=== PATIENT | male | born 1975 | race African-American/Black ===

== ENCOUNTER 2017-03-07 06:46 | Emergency (ER) | payer BC, OTHER ==
[2017-03-07] MEDS ORDERED: DIPHENOX-ATROP 2.5-0.025 MG 1 EACH TAB PO STA (07:22)
[2017-03-07] MEDS ORDERED: SODIUM CHLORIDE 0.9% 500 ML IV STA (07:22)
[2017-03-07] MEDS ORDERED: ONDANSETRON 4 MG/2 ML VIAL IVP STA (07:22)
--- NOTE | 2017-03-07 07:27 | ED ---
General Adult HPI - General Chief complaint: Nausea/Vomiting/Diarrhea Stated complaint: NVD Time Seen by Provider: 03/07/17 07:00 Source: patient, RN notes reviewed Mode of arrival: ambulatory Limitations: no limitations - History of Present Illness Initial comments: This is a 41-year-old male who presents to the emergency department complaining of vomiting diarrhea. Patient states started last night about 8:00 and he has vomited a couple times. Patient states he had loose stool since that times well. Patient denies any significant abdominal pain. Patient denies any chest pain difficulty breathing or shortness of breath. Patient denies any recent fever chills or cough per patient states one of his grandchildren was ill with similar symptoms. Patient denies any lesions or rashes. Patient denies any lightheadedness or dizziness. - Related Data Previous Rx's Medication Instructions Recorded Diazepam [Valium] 5 mg PO QID PRN #5 tab 05/23/14 Acetaminophen with Codeine 1 each PO Q4H #20 tab 05/28/14 [Tylenol w/codeine #3] Cyclobenzaprine [Flexeril] 10 mg PO TID #20 tab 05/28/14 Ibuprofen [Motrin] 800 mg PO Q6HR PRN #20 tab 05/28/14 Allergies Allergy/AdvReac Type Severity Reaction Status Date / Time lactose Allergy Diarrhea Verified 03/07/17 06:54 Review of Systems ROS Statement: Those systems with pertinent positive or pertinent negative responses have been documented in the HPI. ROS Other: All systems not noted in ROS Statement are negative. Past Medical History Past Medical History: No Reported History History of Any Multi-Drug Resistant Organisms: None Reported Past Surgical History: No Surgical Hx Reported Past Psychological History: No Psychological Hx Reported Smoking Status: Current every day smoker Past Alcohol Use History: Occasional Past Drug Use History: None Reported General Exam - General Exam Comments Initial Comments: GENERAL: Patient is well-developed and well-nourished. Patient is nontoxic and well- hydrated and is in mild distress. ENT: Neck is soft and supple. No significant lymphadenopathy is noted. Oropharynx is clear. Moist mucous membranes. Neck has full range of motion without eliciting any pain. 6640 EYES: The sclera were anicteric and conjunctiva were pink and moist. Extraocular movements were intact and pupils were equal round and reactive to light. Eyelids were unremarkable. PULMONARY: Unlabored respirations. Good breath sounds bilaterally. No audible rales rhonchi or wheezing was noted. CARDIOVASCULAR: There is a regular rate and rhythm without any murmurs gallops or rubs. ABDOMEN: Soft and nontender with normal bowel sounds. No palpable organomegaly was noted. There is no palpable pulsatile mass. SKIN: Skin is clear with no lesions or rashes and otherwise unremarkable. NEUROLOGIC: Patient is alert and oriented x3. Cranial nerves II through XII are grossly intact. Motor and sensory are also intact. Normal speech, volume and content. Symmetrical smile. MUSCULOSKELETAL: Normal extremities with adequate strength and full range of motion. No lower extremity swelling or edema. No calf tenderness. LYMPHATICS: No significant lymphadenopathy is noted PSYCHIATRIC: Normal psychiatric evaluation. 6640 Limitations: no limitations Course Vital Signs 03/07/17 03/07/17 06:50 07:35 Temperature 98.9 F Pulse Rate 116 H 97 Respiratory 16 16 Rate Blood Pressure 151/106 138/80 O2 Sat by Pulse 96 99 Oximetry Medical Decision Making - Lab Data Result diagrams: 03/07/17 06:55 03/07/17 06:55 Lab Results 03/07/17 03/07/17 Range/Units 06:55 06:55 WBC 7.6 (3.8-10.6) k/uL RBC 5.34 (4.30-5.90) m/uL Hgb 16.1 (13.0-17.5) gm/dL Hct 46.7 (39.0-53.0) % MCV 87.4 (80.0-100.0) fL MCH 30.2 (25.0-35.0) pg MCHC 34.6 (31.0-37.0) g/dL RDW 12.8 (11.5-15.5) % Plt Count 296 (150-450) k/uL Neutrophils % 55 % Lymphocytes % 29 % Monocytes % 11 % Eosinophils % 2 % Basophils % 1 % Neutrophils # 4.2 (1.3-7.7) k/uL Lymphocytes # 2.2 (1.0-4.8) k/uL Monocytes # 0.8 (0-1.0) k/uL Eosinophils # 0.2 (0-0.7) k/uL Basophils # 0.1 (0-0.2) k/uL Sodium 138 (137-145) mmol/L Potassium 4.4 (3.5-5.1) mmol/L Chloride 103 (98-107) mmol/L Carbon Dioxide 19 L (22-30) mmol/L Anion Gap 16 mmol/L BUN 13 (9-20) mg/dL Creatinine 1.02 (0.66-1.25) mg/dL Est GFR (MDRD) Af Amer >60 (>60 ml/min/1.73 sqM) Est GFR (MDRD) Non-Af >60 (>60 ml/min/1.73 sqM) Glucose 112 H (74-99) mg/dL Calcium 10.0 (8.4-10.2) mg/dL Total Bilirubin 1.0 (0.2-1.3) mg/dL AST 34 (17-59) U/L ALT 43 (21-72) U/L Alkaline Phosphatase 85 (38-126) U/L Total Protein 8.4 H (6.3-8.2) g/dL Albumin 5.0 (3.5-5.0) g/dL Amylase 40 (30-110) U/L Lipase 162 (23-300) U/L Disposition Clinical Impression: Gastroenteritis Disposition: HOME SELF-CARE Condition: Good Instructions: Gastroenteritis (ED) Referrals: None,Stated [Primary Care Provider] - 1-2 days Time of Disposition: 08:12
[2017-03-07 07:40] LABS: Basophils # (A) 0.1 k/uL (0-0.2); Basophils % (A) 1 %; CH 30.5; Eosinophils # (A) 0.2 k/uL (0-0.7); Eosinophils % (A) 2 %; HCT 46.7 % (39.0-53.0); HDW 2.37; HGB 16.1 gm/dL (13.0-17.5); Luc # (Auto) 0.15; Luc % (Auto) 2; Lymphocytes # (A) 2.2 k/uL (1.0-4.8); Lymphocytes % (A) 29 %; MCH 30.2 pg (25.0-35.0); MCHC 34.6 g/dL (31.0-37.0); MCV 87.4 fL (80.0-100.0); Mean Platelet Volume 6.7; Monocytes # (A) 0.8 k/uL (0-1.0); Monocytes % (A) 11 %; Neutrophils # (A) 4.2 k/uL (1.3-7.7); Neutrophils % (A) 55 %; RBC 5.34 m/uL (4.30-5.90); RDW 12.8 % (11.5-15.5); WBC 7.6 k/uL (3.8-10.6); WBC (Perox) 7.08
[2017-03-07 08:05] LABS: ALT 43 U/L (21-72); AST 34 U/L (17-59); Alkaline Phosphatase 85 U/L (38-126); Amylase 40 U/L (30-110); Anion Gap 16 mmol/L; Blood Urea Nitrogen 13 mg/dL (9-20); Carbon Dioxide 19 mmol/L (22-30); Chloride 103 mmol/L (98-107); Glucose 112 mg/dL (74-99); Non-African American GFR(MDRD) >60 (>60 ml/min/1.73 sqM); Potassium 4.4 mmol/L (3.5-5.1); Sodium 138 mmol/L (137-145); Total Protein 8.4 g/dL (6.3-8.2)
[2017-03-07] MEDS ORDERED: ONDANSETRON 4 MG ODT STARTER PACK 2 TAB BTL PO STA (08:12)
[2017-03-07 08:42] VITALS: BP 148/82; PULSE 95; RESP 18; TEMP 97.9
== END 2017-03-07 08:20 | disposition home or self-care (01) ==
LOC: EC 06:46
DX: K52.9 Noninfective gastroenteritis and colitis, unspecified (principal); F17.200 Nicotine dependence, unspecified, uncomplicated; Z91.011 Allergy to milk products
CPT/HCPCS: 99284 ×2; 96374 ×2; 96361 ×2; 36415; 80053; 82150; 83690; 85025; J2405; S0119

== ENCOUNTER 2017-09-10 06:21 | Emergency (ER) | payer BC ==
[2017-09-10] MEDS ORDERED: ONDANSETRON 4 MG/2 ML VIAL IVP STA ×2 (06:42→08:31)
[2017-09-10] MEDS ORDERED: SODIUM CHLORIDE 0.9% 1,000 ML IV STA (06:42)
[2017-09-10] MEDS ORDERED: ACETAMINOPHEN TAB 500 MG TAB PO STA (06:43)
[2017-09-10] MEDS ORDERED: KETOROLAC 30 MG/ML 1 ML VIAL IVP STA (06:43)
--- NOTE | 2017-09-10 06:47 | ED ---
General Adult HPI - General Source: patient, RN notes reviewed Mode of arrival: ambulatory Limitations: no limitations <Lei Baires - Last Filed: 09/10/17 06:58> <Lei Patel - Last Filed: 09/10/17 08:33> - General Chief complaint: Nausea/Vomiting/Diarrhea Stated complaint: NVD Time Seen by Provider: 09/10/17 06:42 - History of Present Illness Initial comments: 41-year-old presents for evaluation of nausea vomiting and diarrhea. Patient's symptoms began approximately 8-10 hours ago. He states he ate some eggs and chorizo prior to development of this symptoms. He has had some mild generalized abdominal pain. 2 episodes of vomiting most recently was 3 hours ago. No blood in his vomit. He is also had several episodes of diarrhea. He reports subjective fever and chills. Denies URI symptoms, no cough, no sore throat or rhinorrhea. (Lei Baires) - Related Data Previous Rx's Medication Instructions Recorded Ondansetron Odt [Zofran Odt] 4 mg PO Q8HR PRN #10 tab 09/10/17 Allergies Allergy/AdvReac Type Severity Reaction Status Date / Time lactose Allergy Diarrhea Verified 09/10/17 07:17 Review of Systems ROS Other: All systems not noted in ROS Statement are negative. <Lei Baires - Last Filed: 09/10/17 06:58> ROS Other: All systems not noted in ROS Statement are negative. <Lei Patel - Last Filed: 09/10/17 08:33> ROS Statement: Those systems with pertinent positive or pertinent negative responses have been documented in the HPI. Past Medical History Past Medical History: No Reported History History of Any Multi-Drug Resistant Organisms: None Reported Past Surgical History: No Surgical Hx Reported Past Psychological History: No Psychological Hx Reported Smoking Status: Current every day smoker Past Alcohol Use History: Occasional Past Drug Use History: None Reported <Lei Baires - Last Filed: 09/10/17 06:58> General Exam Limitations: no limitations General appearance: alert, in no apparent distress Head exam: Present: atraumatic, normocephalic Eye exam: Present: normal appearance, PERRL ENT exam: Present: mucous membranes dry Neck exam: Present: normal inspection. Absent: tenderness, meningismus Respiratory exam: Present: normal lung sounds bilaterally. Absent: respiratory distress, wheezes Cardiovascular Exam: Present: normal rhythm, tachycardia GI/Abdominal exam: Present: soft, distended, tenderness (Mild left lower quadrant tenderness). Absent: guarding, rebound Extremities exam: Present: normal inspection, normal capillary refill. Absent: pedal edema Neurological exam: Present: alert, oriented X3, CN II-XII intact. Absent: motor sensory deficit Psychiatric exam: Present: normal affect, normal mood Skin exam: Present: warm, intact, diaphoretic (Clammy) <Lei Baires - Last Filed: 09/10/17 06:58> Course <Lei Baires - Last Filed: 09/10/17 06:58> <Lei Patel - Last Filed: 09/10/17 08:33> Vital Signs 09/10/17 09/10/17 06:25 06:45 Temperature 100.3 F H 97.7 F Pulse Rate 117 H 106 H Respiratory 20 14 Rate Blood Pressure 155/92 146/88 O2 Sat by Pulse 96 95 Oximetry - Reevaluation(s) Reevaluation #1: 09/10/17 06:47 Patient's care signed out at shift change to Dr. Patel awaiting laboratory studies and reevaluation. 09/10/17 06:58 (Lei Baires) Reevaluation #2: 09/10/17 08:31 The patient showing much improved he still has some nausea he will be given another dose of antinausea medication be discharged he will be able to return to work tomorrow. (Lei Patel) Medical Decision Making - Lab Data Result diagrams: 09/10/17 06:55 09/10/17 06:55 <Lei Patel - Last Filed: 09/10/17 08:33> - Lab Data Lab Results 09/10/17 09/10/17 Range/Units 06:55 06:55 WBC 5.2 (3.8-10.6) k/uL RBC 4.64 (4.30-5.90) m/uL Hgb 14.1 (13.0-17.5) gm/dL Hct 39.2 (39.0-53.0) % MCV 84.6 (80.0-100.0) fL MCH 30.4 (25.0-35.0) pg MCHC 35.9 (31.0-37.0) g/dL RDW 13.2 (11.5-15.5) % Plt Count 274 (150-450) k/uL Neutrophils % 53 % Lymphocytes % 34 % Monocytes % 8 % Eosinophils % 2 % Basophils % 1 % Neutrophils # 2.7 (1.3-7.7) k/uL Lymphocytes # 1.8 (1.0-4.8) k/uL Monocytes # 0.4 (0-1.0) k/uL Eosinophils # 0.1 (0-0.7) k/uL Basophils # 0.0 (0-0.2) k/uL Sodium 143 (137-145) mmol/L Potassium 4.1 (3.5-5.1) mmol/L Chloride 104 (98-107) mmol/L Carbon Dioxide 22 (22-30) mmol/L Anion Gap 17 mmol/L BUN 13 (9-20) mg/dL Creatinine 0.92 (0.66-1.25) mg/dL Est GFR (CKD-EPI)AfAm >90 (>60 ml/min/1.73 sqM) Est GFR (CKD-EPI)NonAf >90 (>60 ml/min/1.73 sqM) Glucose 127 H (74-99) mg/dL Calcium 9.0 (8.4-10.2) mg/dL Total Bilirubin 0.7 (0.2-1.3) mg/dL AST 44 (17-59) U/L ALT 49 (21-72) U/L Alkaline Phosphatase 72 (38-126) U/L Total Protein 7.3 (6.3-8.2) g/dL Albumin 4.6 (3.5-5.0) g/dL Lipase 123 (23-300) U/L Disposition <Lei Baires - Last Filed: 09/10/17 06:58> Is patient prescribed a controlled substance at d/c from ED?: No <Lei Patel - Last Filed: 09/10/17 08:33> Clinical Impression: Gastroenteritis Disposition: HOME SELF-CARE Condition: Good Instructions: Acute Nausea and Vomiting (ED), Acute Diarrhea (ED) Prescriptions: Ondansetron Odt [Zofran Odt] 4 mg PO Q8HR PRN #10 tab PRN Reason: Nausea Referrals: Robert Nuñez MD [Primary Care Provider] - 1-2 days
[2017-09-10 07:08] LABS: Basophils % (A) 1 %; Eosinophils # (A) 0.1 k/uL (0-0.7); Eosinophils % (A) 2 %; HCT 39.2 % (39.0-53.0); HGB 14.1 gm/dL (13.0-17.5); Lymphocytes # (A) 1.8 k/uL (1.0-4.8); Lymphocytes % (A) 34 %; MCH 30.4 pg (25.0-35.0); MCHC 35.9 g/dL (31.0-37.0); MCV 84.6 fL (80.0-100.0); Mean Platelet Volume 6.4; Monocytes # (A) 0.4 k/uL (0-1.0); Monocytes % (A) 8 %; Neutrophils # (A) 2.7 k/uL (1.3-7.7); Neutrophils % (A) 53 %; Platelet Count 274 k/uL (150-450); RBC 4.64 m/uL (4.30-5.90); RDW 13.2 % (11.5-15.5); WBC 5.2 k/uL (3.8-10.6)
[2017-09-10 07:21] LABS: ALT 49 U/L (21-72); AST 44 U/L (17-59); Albumin 4.6 g/dL (3.5-5.0); Alkaline Phosphatase 72 U/L (38-126); Anion Gap 17 mmol/L; Blood Urea Nitrogen 13 mg/dL (9-20); Carbon Dioxide 22 mmol/L (22-30); Chloride 104 mmol/L (98-107); Glucose 127 mg/dL (74-99); Lipase 123 U/L (23-300); Potassium 4.1 mmol/L (3.5-5.1); Sodium 143 mmol/L (137-145); Total Bilirubin 0.7 mg/dL (0.2-1.3); Total Protein 7.3 g/dL (6.3-8.2)
[2017-09-10 08:52] VITALS: BP 149/88; PULSE 101; RESP 20; TEMP 98.1
== END 2017-09-10 08:51 | disposition home or self-care (01) ==
LOC: EC 06:21
DX: K52.9 Noninfective gastroenteritis and colitis, unspecified (principal); F17.200 Nicotine dependence, unspecified, uncomplicated; Z91.011 Allergy to milk products
CPT/HCPCS: 36415; 80053; 83690; 85025; 99284; 96374; 96376; 96361 ×2; J2405

== ENCOUNTER 2017-11-14 17:14 | Emergency (ER) | payer BC, OTHER ==
[2017-11-14 17:30] VITALS: BP 144/93; PULSE 108; RESP 18
[2017-11-14 17:46] VITALS: TEMP 96.9
== END 2017-11-14 17:45 | disposition home or self-care (01) ==
LOC: EC 17:14
DX: Z02.9 Encounter for administrative examinations, unspecified (principal)

== ENCOUNTER 2018-01-26 21:23 | Observation (INO) | payer BC ==
[2018-01-26] MEDS ORDERED: SODIUM CHLORIDE 0.9% 500 ML IV STA (22:33)
--- NOTE | 2018-01-26 22:38 | ED ---
General Adult HPI - General Source: patient, family, RN notes reviewed, old records reviewed Mode of arrival: ambulatory Limitations: no limitations <Jorge Craft - Last Filed: 01/27/18 01:10> <Arnold Campbell - Last Filed: 01/27/18 06:27> - General Chief complaint: Abdominal Pain Stated complaint: abdominal pain - History of Present Illness Initial comments: Chief complaint and history of present illness this is a 42-year-old male with complaint of left lower quadrant abdominal pain. He reports it started around 3 :30 this afternoon. Patient denies any change in appetite. Denies any difficulty having bowel movements denies any trouble urinating. Acute injury ( Jorge Craft) - Related Data Home Medications Medication Instructions Recorded Confirmed No Known Home Medications 01/26/18 01/26/18 Allergies Allergy/AdvReac Type Severity Reaction Status Date / Time lactose Allergy Diarrhea Verified 01/26/18 22:10 Review of Systems ROS Other: All systems not noted in ROS Statement are negative. <Jorge Craft - Last Filed: 01/27/18 01:10> ROS Other: All systems not noted in ROS Statement are negative. <Arnold Campbell - Last Filed: 01/27/18 06:27> ROS Statement: Those systems with pertinent positive or pertinent negative responses have been documented in the HPI. Review of systems no headache visual acuity changes no chest pain no shortness of breath he has discomfort to the left lower quadrant. No difficulty urinating or bowel movements. All systems are reviewed. No significant past medical problems. Denies any surgeries. Family history diabetes and cancer. ALLERGIES to lactose. Denies eating anything that may have caused Dali cramping because of lactose. Patient's heavy smoker and heavy drinker. Advised to stop both. (Jorge Craft) Past Medical History Past Medical History: No Reported History History of Any Multi-Drug Resistant Organisms: None Reported Past Surgical History: No Surgical Hx Reported Past Psychological History: No Psychological Hx Reported Smoking Status: Current every day smoker Past Alcohol Use History: Occasional Past Drug Use History: None Reported <Jorge Craft - Last Filed: 01/27/18 01:10> General Exam Limitations: no limitations <Jorge Craft - Last Filed: 01/27/18 01:10> <Arnold Campbell - Last Filed: 01/27/18 06:27> - General Exam Comments Initial Comments: General: The patient is awake and alert, P with a complaint of left lower quadrant pain. Started at 3:30 this afternoon. Vital signs temperature 97.7 pulse 104 respiratory rate 20 pulse ox 99% room air blood pressure 149/89 Eye: Pupils are equal, round and reactive to light, extra-ocular movements are intact ; there is normal conjunctiva bilaterally. No signs of icterus. Ears, nose, mouth and throat: There are moist mucous membranes and no oral lesions. Neck: The neck is supple, there is no tenderness. Cardiovascular: There is a regular rate and rhythm. No murmur, rub or gallop is appreciated. Respiratory: Lungs are clear to auscultation, respirations are non-labored, breath sounds are equal. No wheezes, stridor, rales, or rhonchi. Gastrointestinal: Patient has discomfort with palpation and mild voluntary guarding to the left lower quadrant. No rebound no referred pain. Normal bowel sounds. Urinating without difficulties bowel movements today without difficulty. Back: No flank pain. Musculoskeletal: Upper lower extremities normal. Psychologically the patient has a past history of bipolar disorder. No complaints of being depressed. Normal judgment. (Jorge Craft) Vital Signs 01/26/18 01/26/18 01/27/18 21:53 23:34 00:43 Temperature 97.7 F Pulse Rate 104 H 101 H 77 Respiratory 20 17 18 Rate Blood Pressure 149/89 134/58 137/88 O2 Sat by Pulse 99 95 95 Oximetry 01/27/18 02:55 Temperature 97.4 F L Pulse Rate 71 Respiratory 19 Rate Blood Pressure 145/86 O2 Sat by Pulse 94 L Oximetry Medical Decision Making - Lab Data Result diagrams: 01/26/18 22:45 01/26/18 22:45 <Jorge Craft - Last Filed: 01/27/18 01:10> - Lab Data Result diagrams: 01/26/18 22:45 01/26/18 22:45 <Arnold Campbell - Last Filed: 01/27/18 06:27> - Medical Decision Making Medical decision making; this is a 42-year-old male with left lower quadrant pain since 3:30 this afternoon. Labs show white count of 5 hemoglobin 14 hematocrit of 42. Potassium 4.3 with a BUN 19 creatinine 1.26 and GFR 70. Glucose 1:15. Amylase lipase within normal limits. Lactic acid 3.2. X-ray of the abdomen was done and reviewed by radiologist his findings include an there is no sign of intestinal obstruction or pneumoperitoneum. Fecal pattern is normal. There are phleboliths in the pelvis. There are no pathologic calcifications over the kidneys. Lung bases are clear. There is linear density at the right lung base consistent with scarring or subsegmental atelectasis. Impression; nonacute abdomen. As read by Dr. Jackson Final disposition by Dr. Campbell (Jorge Craft) I received this patient as sign out, pending the computed tomography scan of the abdomen. The CAT scan does appear within normal limits. The patient is given additional hydration, and the lactic acid is rechecked which does show some improvement though not at the normal range yet. Patient reevaluated and no findings on abdominal exam. Patient be admitted further hydration and to ensure that the lactic acid normalizes. (Arnold Campbell) - Lab Data Lab Results 01/26/18 01/26/18 01/26/18 Range/Units 22:45 22:45 22:45 WBC 5.1 (3.8-10.6) k/uL RBC 4.89 (4.30-5.90) m/uL Hgb 14.4 (13.0-17.5) gm/dL Hct 42.8 (39.0-53.0) % MCV 87.6 (80.0-100.0) fL MCH 29.4 (25.0-35.0) pg MCHC 33.5 (31.0-37.0) g/dL RDW 13.6 (11.5-15.5) % Plt Count 278 (150-450) k/uL Neutrophils % 60 % Lymphocytes % 26 % Monocytes % 9 % Eosinophils % 2 % Basophils % 1 % Neutrophils # 3.1 (1.3-7.7) k/uL Lymphocytes # 1.3 (1.0-4.8) k/uL Monocytes # 0.4 (0-1.0) k/uL Eosinophils # 0.1 (0-0.7) k/uL Basophils # 0.1 (0-0.2) k/uL Sodium 140 (137-145) mmol/L Potassium 4.3 (3.5-5.1) mmol/L Chloride 107 (98-107) mmol/L Carbon Dioxide 19 L (22-30) mmol/L Anion Gap 14 mmol/L BUN 19 (9-20) mg/dL Creatinine 1.26 H (0.66-1.25) mg/dL Est GFR (CKD-EPI)AfAm 81 (>60 ml/min/1.73 sqM) Est GFR (CKD-EPI)NonAf 70 (>60 ml/min/1.73 sqM) Glucose 115 H (74-99) mg/dL Lactic Ac Sepsis Rflx Plasma Lactic Acid Alex 3.2 H* (0.7-2.0) mmol/L Calcium 8.9 (8.4-10.2) mg/dL Total Bilirubin 0.5 (0.2-1.3) mg/dL AST 33 (17-59) U/L ALT 46 (21-72) U/L Alkaline Phosphatase 63 (38-126) U/L Total Protein 7.2 (6.3-8.2) g/dL Albumin 4.4 (3.5-5.0) g/dL Amylase 42 (30-110) U/L Lipase 129 (23-300) U/L Urine Color Urine Appearance (Clear) Urine pH (5.0-8.0) Ur Specific [place] (1.001-1.035) Urine Protein (Negative) Urine Glucose (UA) (Negative) Urine Ketones (Negative) Urine Blood (Negative) Urine Nitrite (Negative) Urine Bilirubin (Negative) Urine Urobilinogen (<2.0) mg/dL Ur Leukocyte Esterase (Negative) 01/26/18 01/26/18 01/27/18 Range/Units 23:25 23:38 05:47 WBC (3.8-10.6) k/uL RBC (4.30-5.90) m/uL Hgb (13.0-17.5) gm/dL Hct (39.0-53.0) % MCV (80.0-100.0) fL MCH (25.0-35.0) pg MCHC (31.0-37.0) g/dL RDW (11.5-15.5) % Plt Count (150-450) k/uL Neutrophils % % Lymphocytes % % Monocytes % % Eosinophils % % Basophils % % Neutrophils # (1.3-7.7) k/uL Lymphocytes # (1.0-4.8) k/uL Monocytes # (0-1.0) k/uL Eosinophils # (0-0.7) k/uL Basophils # (0-0.2) k/uL Sodium (137-145) mmol/L Potassium (3.5-5.1) mmol/L Chloride (98-107) mmol/L Carbon Dioxide (22-30) mmol/L Anion Gap mmol/L BUN (9-20) mg/dL Creatinine (0.66-1.25) mg/dL Est GFR (CKD-EPI)AfAm (>60 ml/min/1.73 sqM) Est GFR (CKD-EPI)NonAf (>60 ml/min/1.73 sqM) Glucose (74-99) mg/dL Lactic Ac Sepsis Rflx Y Plasma Lactic Acid Alex 2.5 H* (0.7-2.0) mmol/L Calcium (8.4-10.2) mg/dL Total Bilirubin (0.2-1.3) mg/dL AST (17-59) U/L ALT (21-72) U/L Alkaline Phosphatase (38-126) U/L Total Protein (6.3-8.2) g/dL Albumin (3.5-5.0) g/dL Amylase (30-110) U/L Lipase (23-300) U/L Urine Color Yellow Urine Appearance Clear (Clear) Urine pH 5.0 (5.0-8.0) Ur Specific [place] 1.012 (1.001-1.035) Urine Protein Negative (Negative) Urine Glucose (UA) Negative (Negative) Urine Ketones Negative (Negative) Urine Blood Negative (Negative) Urine Nitrite Negative (Negative) Urine Bilirubin Negative (Negative) Urine Urobilinogen <2.0 (<2.0) mg/dL Ur Leukocyte Esterase Negative (Negative) Disposition <Jorge Craft - Last Filed: 01/27/18 01:10> Is patient prescribed a controlled substance at d/c from ED?: No <Arnold Campbell - Last Filed: 01/27/18 06:27> Clinical Impression: Abdominal pain, Lactic acidosis Disposition: ADMITTED IP TO THIS HOSP Condition: Fair Instructions: Abdominal Pain (ED) Referrals: None,Stated [Primary Care Provider] - 1-2 days
[2018-01-26 23:11] LABS: Basophils # (A) 0.1 k/uL (0-0.2); Basophils % (A) 1 %; Eosinophils # (A) 0.1 k/uL (0-0.7); Eosinophils % (A) 2 %; HCT 42.8 % (39.0-53.0); HGB 14.4 gm/dL (13.0-17.5); Lymphocytes # (A) 1.3 k/uL (1.0-4.8); Lymphocytes % (A) 26 %; MCH 29.4 pg (25.0-35.0); MCHC 33.5 g/dL (31.0-37.0); MCV 87.6 fL (80.0-100.0); Mean Platelet Volume 6.4; Monocytes # (A) 0.4 k/uL (0-1.0); Monocytes % (A) 9 %; Neutrophils # (A) 3.1 k/uL (1.3-7.7); Neutrophils % (A) 60 %; Platelet Count 278 k/uL (150-450); RBC 4.89 m/uL (4.30-5.90); RDW 13.6 % (11.5-15.5); WBC 5.1 k/uL (3.8-10.6)
--- NOTE | 2018-01-26 23:17 | XR ---
EXAMINATION TYPE: XR abdomen 2V DATE OF EXAM: 01/26/2018 COMPARISON: NONE HISTORY: Abdominal pain TECHNIQUE: 3 views FINDINGS: There is no sign of intestinal obstruction or pneumoperitoneum. Fecal pattern is normal. Th ere are fleet Santillan in the pelvis. There are no pathologic calcifications over the kidneys. Lung bas es are clear. There is linear density at the right lung base consistent with scarring or subsegmental atelectasis. IMPRESSION: Nonacute abdomen.
[2018-01-26 23:21] LABS: Albumin 4.4 g/dL (3.5-5.0); Calcium 8.9 mg/dL (8.4-10.2); Potassium 4.3 mmol/L (3.5-5.1); Total Bilirubin 0.5 mg/dL (0.2-1.3); Total Protein 7.2 g/dL (6.3-8.2)
[2018-01-26 23:55] LABS: Appearance,Urine Clear (Clear); Bilirubin,Urine Negative (Negative); Blood,Urine Negative (Negative); Color,Urine Yellow; Glucose,Urine (UA) Negative (Negative); Ketones,Urine Negative (Negative); Leukocyte Esterase,Urine Negative (Negative); Nitrite,Urine Negative (Negative); Protein,Urine Negative (Negative); Specific Gravity,Urine 1.012 (1.001-1.035); Urobilinogen,Urine <2.0 mg/dL (<2.0)
[2018-01-27] MEDS ORDERED: IOPAMIDOL-300 CONTRAST 30 ML VIAL (ORAL USE) PO PRN (00:23)
--- NOTE | 2018-01-27 02:25 | CT ---
EXAMINATION TYPE: CT abdomen pelvis w con DATE OF EXAM: 01/27/2018 COMPARISON: None HISTORY: no prior middle low abdominal pain x1day CT DLP: 1572.00 mGycm Automated exposure control for dose reduction was used. TECHNIQUE: Helical acquisition of images was performed from the lung bases through the pelvis. CONTRAST: Performed with Oral Contrast and with IV Contrast, patient injected with 100 mL of Isovue 300. FINDINGS: There is minimal linear density at the posterior lung bases consistent with scarring and subsegmental atelectasis. Heart size is normal. Liver shows some fatty infiltration. Bile ducts are not dilated. Gallbladder appears normal. Spleen and pancreas appear normal. There is no adrenal mass. Kidneys show satisfactory contrast opacification. There is no hydronephrosi s. There is no retroperitoneal adenopathy. Bladder distends smoothly. There is no free fluid in the p shelbi. There is no intestinal wall thickening. There are no dilated loops. Appendix appears normal. A ppendix is filled with contrast. There is no evidence of a pelvic mass. Lumbar spine appears intact. Urinary bladder is large and measures 15 cm in height. IMPRESSION: MILD FATTY INFILTRATION OF THE LIVER. MINIMAL SUBSEGMENTAL ATELECTASIS AT THE LUNG BASES. NORMAL APPE NDIX. I DO NOT SEE A CAUSE FOR LEFT LOWER QUADRANT PAIN.
[2018-01-27] MEDS ORDERED: SODIUM CHLORIDE 0.9% 3,000 ML IV ONE (02:50)
[2018-01-27] MEDS ORDERED: NALOXONE 0.4 MG/ML 1 ML VIAL IV PRN (06:19)
[2018-01-27] MEDS ORDERED: ACETAMINOPHEN TAB 325 MG TAB PO PRN (06:19)
[2018-01-27] MEDS ORDERED: ONDANSETRON 4 MG/2 ML VIAL IVP PRN (06:19)
[2018-01-27] MEDS: FAMOTIDINE 20 MG TAB PO SCH ×2 (09:54→20:19)
[2018-01-27] MEDS ORDERED: LORazepam 0.5 MG TAB PO PRN (12:04)
[2018-01-27] MEDS: LEVOFLOXACIN 500MG-D5W PMX 500 MG in DEXTROSE/WATER 1 100ML.BAG IVPB SCH (12:06)
[2018-01-27] MEDS: SODIUM CHLORIDE 0.9% 1,000 ML IV SCH ×2 (12:09→20:18)
[2018-01-27] MEDS: NICOTINE 14MG/24HR PATCH TRANSDERM SCH (14:28)
--- NOTE | 2018-01-27 16:43 | HP ---
HISTORY AND PHYSICAL DATE OF SERVICE: 01/27/2018 CHIEF COMPLAINTS: Abdominal pain. HISTORY OF PRESENT ILLNESS: This 42-year-old gentleman with a past medical history of multiple medical issues including GERD being followed by no primary physician in the outpatient setting was complaining of left-sided abdominal pain which is in the lower quadrant yesterday which was not radiating. There was no associated bowel symptoms. Patient came to [facility] and admitted for evaluation and treatment. The patient had creatinine 1.26 indicating mild acute renal failure and lactic acid also elevated 3.2 and 3.5. There is no history of fever, rigors. No headache, loss of consciousness, seizures. PAST MEDICAL HISTORY: GERD. MEDICATIONS: None. ALLERGIES: LACTOSE. FAMILY HISTORY: History of diabetes in the family. SOCIAL HISTORY: History of smoking on a daily basis. History of alcohol. REVIEW OF SYSTEMS: ENT: No diminished hearing or vision. CARDIOVASCULAR: No angina. RESPIRATORY: As mentioned earlier. GI: No nausea. : No dysuria. NERVOUS SYSTEM: No numbness or weakness. ALLERGY/IMMUNOLOGY: No hay fever. MUSCULOSKELETAL: As mentioned. HEMATOLOGY: No history anemia. ENDOCRINE: No history of diabetes or hypothyroidism. CONSTITUTIONAL: As mentioned earlier. DERMATOLOGY: Negative. RHEUMATOLOGY: Negative. PSYCHIATRY: As mentioned earlier. PHYSICAL EXAMINATION: Alert and oriented x3. Pulse 82, blood pressure 130/88, respiration 16, temperature 96.7, pulse ox 97% on room air. HEENT: Conjunctivae normal. Oral mucosa moist. NECK: No jugular venous distention. No carotid bruit. No lymph node enlargement. CARDIOVASCULAR: S1, S2 RESPIRATORY: Breath sounds diminished in the bases. No rhonchi, no crackles. ABDOMEN: Soft. Mild diffuse tenderness in the left lower quadrant. No guarding. No rigidity. No mass palpable. LEGS: No edema, no swelling. NERVOUS SYSTEM: Higher functions as mentioned. Moves all four limbs. No focal motor sensory deficit. LYMPHATICS: No lymphadenopathy in the neck, axillae, groin. SKIN: No ulcer, rashes or bleeding. LABS: CBC within normal limits. Creatinine is 1.26 and lactic acid 3.2. ASSESSMENT: 1. Left lower quadrant abdominal pain with possible acute diverticulitis. 2. Increased lactic acid. 3. Increased creatinine with mild acute renal failure, possibly secondary to dehydration. 4. Gastroesophageal reflux disease. RECOMMENDATIONS AND DISCUSSION: This 42-year-old gentleman who presented with multiple complex medical issues, we will monitor the patient closely. Continue the current medications. I would recommend continue the hydration, empiric antibiotics. Cultures. Symptomatic treatment will be provided. Prognosis guarded because of multiple complex medical issues. Discussed with the patient and recommend close follow up in the outpatient setting also. MMABEL / IJN: [id number] /
[2018-01-27] MEDS: HEPARIN SODIUM,PORCINE 5,000 UNIT/ML 1 ML VIAL SQ SCH (20:19)
[2018-01-28] MEDS: SODIUM CHLORIDE 0.9% 1,000 ML IV SCH ×3 (01:14→10:58)
[2018-01-28 05:06] VITALS: BP 141/87; PULSE 73; RESP 16; TEMP 96.2
[2018-01-28] MEDS ORDERED: PANTOPRAZOLE 40 MG TABLET PO SCH (07:30)
[2018-01-28 08:56] LABS: Basophils % (A) 1 %; Eosinophils # (A) 0.1 k/uL (0-0.7); Eosinophils % (A) 2 %; HCT 45.8 % (39.0-53.0); HGB 14.9 gm/dL (13.0-17.5); Lymphocytes # (A) 1.5 k/uL (1.0-4.8); Lymphocytes % (A) 30 %; MCH 28.9 pg (25.0-35.0); MCHC 32.5 g/dL (31.0-37.0); MCV 88.9 fL (80.0-100.0); Mean Platelet Volume 6.4; Monocytes # (A) 0.5 k/uL (0-1.0); Monocytes % (A) 11 %; Neutrophils # (A) 2.7 k/uL (1.3-7.7); Neutrophils % (A) 54 %; Platelet Count 304 k/uL (150-450); RBC 5.15 m/uL (4.30-5.90); RDW 13.5 % (11.5-15.5); WBC 4.9 k/uL (3.8-10.6)
[2018-01-28 09:08] LABS: Anion Gap 10 mmol/L; Blood Urea Nitrogen 9 mg/dL (9-20); Calcium 9.2 mg/dL (8.4-10.2); Carbon Dioxide 23 mmol/L (22-30); Chloride 107 mmol/L (98-107); Glucose 153 mg/dL (74-99); Potassium 4.7 mmol/L (3.5-5.1); Sodium 140 mmol/L (137-145)
[2018-01-28] MEDS: NICOTINE 14MG/24HR PATCH TRANSDERM SCH (11:13)
[2018-01-28] MEDS: HEPARIN SODIUM,PORCINE 5,000 UNIT/ML 1 ML VIAL SQ SCH (11:13)
[2018-01-28] MEDS: FAMOTIDINE 20 MG TAB PO SCH (11:13)
[2018-01-28] MEDS: LEVOFLOXACIN 500MG-D5W PMX 500 MG in DEXTROSE/WATER 1 100ML.BAG IVPB SCH (11:18)
--- NOTE | 2018-01-28 21:08 | DS ---
DISCHARGE SUMMARY DATE OF SERVICE: 01/28/2018. FINAL DIAGNOSES: 1. Left lower quadrant abdominal pain with possible acute diverticulitis. 2. Increased lactic acid, improved. 3. Increased creatinine with mild acute renal failure possible secondary to dehydration, improved. 4. History EtOH. 5. History of gastroesophageal reflux disease. DISCHARGE DISPOSITION: The patient is being discharged in stable condition with guarded prognosis. HISTORY OF PRESENT ILLNESS: This 42-year-old gentleman with a past medical history of multiple medical problems admitted with abdominal pain as well as elevated lactic acid, treated empirically for diverticulitis, improved significantly. CT scan did not show any acute abnormality. On exam, vital signs stable. Cardiovascular: S1, S2. Abdomen soft. Nervous system: No focal deficits. DISCHARGE ADVICE AND MEDICATIONS: 1. Diet is cardiac diet. 2. Activity limited until followup. 3. Follow up with Dr. Zurita in 2-3 days. MEDICATIONS ARE: 1. Levaquin 500 mg p.o. daily for 5 days. 2. Habitrol 14 daily. 3. Protonix 40 mg daily. 4. No alcohol. Once again, the patient is being discharged in stable condition with guarded prognosis. MMODL / IJN: [id number] /
== END 2018-01-28 14:20 | disposition home or self-care (01) ==
LOC: EC 21:23 → 5MS5E 01-27 06:23
PROVIDERS: ADMIT Internal Medicine; ATTEND Internal Medicine
DX: R10.32 Left lower quadrant pain (principal); N17.9 Acute kidney failure, unspecified; K21.9 Gastro-esophageal reflux disease without esophagitis; R74.0 Nonspecific elevation of levels of transaminase and lactic acid dehydrogenase [LDH]; R79.89 Other specified abnormal findings of blood chemistry; Z72.89 Other problems related to lifestyle; F17.200 Nicotine dependence, unspecified, uncomplicated; Z80.9 Family history of malignant neoplasm, unspecified; Z83.3 Family history of diabetes mellitus
CPT/HCPCS: 99285 ×2; 96361 ×9; 96365; 96366 ×2; 96372 ×2; 36415 ×2; 80053; 80048; 82150; 83605 ×2; 83690; 85025 ×2; 81003; 87040; 87086; 74019; 74177; G0378 ×2; S4990 ×2; J1644 ×2; J1956 ×2; Q9967

== ENCOUNTER 2018-06-12 08:59 | Emergency (ER) | payer BC ==
[2018-06-12 09:09] VITALS: BP 153/95; PULSE 105; RESP 18
[2018-06-12] MEDS ORDERED: ONDANSETRON 4 MG/2 ML VIAL IVP STA (09:46)
[2018-06-12] MEDS ORDERED: SODIUM CHLORIDE 0.9% 1,000 ML IV STA ×2 (09:46)
[2018-06-12] MEDS ORDERED: SODIUM CHLORIDE 0.9% 500 ML 500 ML IV STA (09:46)
[2018-06-12] MEDS ORDERED: PANTOPRAZOLE 40 MG/10 ML VIAL IVP STA (09:47)
[2018-06-12 10:28] VITALS: TEMP 99.5
[2018-06-12] MEDS ORDERED: SODIUM CHLORIDE 0.9% 1,000 ML BAG ONE (11:00)
[2018-06-12] MEDS ORDERED: ONDANSETRON 4 MG/2 ML VIAL ONE (11:00)
[2018-06-12] MEDS ORDERED: PANTOPRAZOLE 40 MG/10 ML VIAL ONE (11:00)
--- NOTE | 2018-06-12 11:53 | ED ---
Nausea/Vomiting/Diarrhea HPI - General Chief complaint: Nausea/Vomiting/Diarrhea Stated complaint: abd pain Time Seen by Provider: 06/12/18 09:17 Source: patient, RN notes reviewed, old records reviewed Mode of arrival: ambulatory Limitations: no limitations - History of Present Illness Initial comments: This is a 42-year-old male to the ER for evaluation. Today's presenting for evaluation regards to nausea vomiting and diarrhea. Weakness fever. Abdominal cramping but no pain. No recent travel history, patient states his is also been sick. Patient has no significant injury medical history. Not taking any medication currently. MD complaint: nausea, vomiting, diarrhea -: days(s) Description of Vomiting: food contents, watery Associated Abdominal Pain: No Radiation: none Severity: mild Severity scale (1-10): 2 Consistency: intermittent Improves with: none Worsens with: eating, vomiting Context: sick contacts Associated Symptoms: myalgias, nausea/vomiting, weakness - Related Data Home Medications Medication Instructions Recorded Confirmed Ibuprofen [Motrin Ib] 400 mg PO Q6H PRN 06/12/18 06/12/18 Allergies Allergy/AdvReac Type Severity Reaction Status Date / Time lactose Allergy Diarrhea Verified 06/12/18 09:35 Review of Systems ROS Statement: Those systems with pertinent positive or pertinent negative responses have been documented in the HPI. ROS Other: All systems not noted in ROS Statement are negative. Past Medical History Past Medical History: GERD/Reflux History of Any Multi-Drug Resistant Organisms: None Reported Past Surgical History: No Surgical Hx Reported Past Psychological History: No Psychological Hx Reported Smoking Status: Current every day smoker Past Alcohol Use History: None Reported Past Drug Use History: None Reported - Past Family History Father Family Medical History: Diabetes Mellitus Additional Family Medical History / Comment(s): Father had diabetes and it runs strongley in his family. Mother Additional Family Medical History / Comment(s): Mother has had bronchitis. General Exam Limitations: no limitations General appearance: alert, in no apparent distress Head exam: Present: atraumatic, normocephalic, normal inspection Eye exam: Present: normal appearance, PERRL, EOMI. Absent: scleral icterus, conjunctival injection, periorbital swelling ENT exam: Present: normal exam, mucous membranes moist Neck exam: Present: normal inspection. Absent: tenderness, meningismus, lymphadenopathy Respiratory exam: Present: normal lung sounds bilaterally. Absent: respiratory distress, wheezes, rales, rhonchi, stridor Cardiovascular Exam: Present: normal rhythm, tachycardia, normal heart sounds. Absent: systolic murmur, diastolic murmur, rubs, gallop, clicks GI/Abdominal exam: Present: soft, normal bowel sounds. Absent: distended, tenderness, guarding, rebound, rigid Extremities exam: Present: normal inspection, full ROM, normal capillary refill. Absent: tenderness, pedal edema, joint swelling, calf tenderness Back exam: Present: normal inspection Neurological exam: Present: alert, oriented X3, CN II-XII intact Psychiatric exam: Present: normal affect, normal mood Skin exam: Present: warm, dry, intact, normal color. Absent: rash Course Vital Signs 06/12/18 06/12/18 09:07 10:26 Temperature 99.0 F 99.5 F Pulse Rate 105 H Respiratory 18 Rate Blood Pressure 153/95 O2 Sat by Pulse 98 Oximetry - Reevaluation(s) Reevaluation #1: 06/12/18 10:38 Medical records reviewed noncontributory Reevaluation #2: 06/12/18 10:38 Patient has symptoms of nausea vomiting and Medical Decision Making - Medical Decision Making 42 male, patient's nausea and vomiting are resolved. Patient states he feels better, patient's okay for discharge home - Lab Data Result diagrams: 06/12/18 10:20 06/12/18 10:20 Lab Results 06/12/18 06/12/18 06/12/18 Range/Units 10:20 10:20 10:20 WBC 4.9 (3.8-10.6) k/uL RBC 4.84 (4.30-5.90) m/uL Hgb 14.5 (13.0-17.5) gm/dL Hct 42.8 (39.0-53.0) % MCV 88.6 (80.0-100.0) fL MCH 30.0 (25.0-35.0) pg MCHC 33.9 (31.0-37.0) g/dL RDW 13.4 (11.5-15.5) % Plt Count 274 (150-450) k/uL Neutrophils % 65 % Lymphocytes % 20 % Monocytes % 10 % Eosinophils % 2 % Basophils % 1 % Neutrophils # 3.2 (1.3-7.7) k/uL Lymphocytes # 1.0 (1.0-4.8) k/uL Monocytes # 0.5 (0-1.0) k/uL Eosinophils # 0.1 (0-0.7) k/uL Basophils # 0.0 (0-0.2) k/uL Sodium 139 (137-145) mmol/L Potassium 4.4 (3.5-5.1) mmol/L Chloride 104 (98-107) mmol/L Carbon Dioxide 24 (22-30) mmol/L Anion Gap 11 mmol/L BUN 14 (9-20) mg/dL Creatinine 0.94 (0.66-1.25) mg/dL Est GFR (CKD-EPI)AfAm >90 (>60 ml/min/1.73 sqM) Est GFR (CKD-EPI)NonAf >90 (>60 ml/min/1.73 sqM) Glucose 101 H (74-99) mg/dL Calcium 9.1 (8.4-10.2) mg/dL Phosphorus 4.6 H (2.5-4.5) mg/dL Magnesium 2.0 (1.6-2.3) mg/dL Total Bilirubin 1.1 (0.2-1.3) mg/dL AST 67 H (17-59) U/L ALT 75 H (21-72) U/L Alkaline Phosphatase 76 (38-126) U/L Total Creatine Kinase 556 H (55-170) U/L CK-MB (CK-2) 3.6 H (0.0-2.4) ng/mL CK-MB (CK-2) Rel Index 0.6 Troponin I <0.012 (0.000-0.034) ng/mL Total Protein 7.6 (6.3-8.2) g/dL Albumin 4.5 (3.5-5.0) g/dL Lipase 79 (23-300) U/L Disposition Clinical Impression: Dehydration, Gastroenteritis Disposition: HOME SELF-CARE Condition: Good Instructions (If sedation given, give patient instructions): Acute Nausea and Vomiting (ED) Is patient prescribed a controlled substance at d/c from ED?: No Referrals: Robert Nuñez MD [Primary Care Provider] - 1-2 days
[2018-06-12 23:35] LABS: ALT 75 U/L (21-72); AST 67 U/L (17-59); Albumin 4.5 g/dL (3.5-5.0); Alkaline Phosphatase 76 U/L (38-126); Anion Gap 11 mmol/L; Blood Urea Nitrogen 14 mg/dL (9-20); Calcium 9.1 mg/dL (8.4-10.2); Carbon Dioxide 24 mmol/L (22-30); Chloride 104 mmol/L (98-107); Glucose 101 mg/dL (74-99); Lipase 79 U/L (23-300); Phosphorus 4.6 mg/dL (2.5-4.5); Potassium 4.4 mmol/L (3.5-5.1); Sodium 139 mmol/L (137-145); Total Bilirubin 1.1 mg/dL (0.2-1.3); Total Protein 7.6 g/dL (6.3-8.2)
[2018-06-12 23:41] LABS: Creatine Kinase 556 U/L (55-170); Creatine Kinase MB 3.6 ng/mL (0.0-2.4); Troponin I <0.012 ng/mL (0.000-0.034)
[2018-06-13 05:32] LABS: Basophils % (A) 1 %; Eosinophils # (A) 0.1 k/uL (0-0.7); Eosinophils % (A) 2 %; HCT 42.8 % (39.0-53.0); HGB 14.5 gm/dL (13.0-17.5); Lymphocytes % (A) 20 %; MCHC 33.9 g/dL (31.0-37.0); MCV 88.6 fL (80.0-100.0); Mean Platelet Volume 6.6; Monocytes # (A) 0.5 k/uL (0-1.0); Monocytes % (A) 10 %; Neutrophils # (A) 3.2 k/uL (1.3-7.7); Neutrophils % (A) 65 %; Platelet Count 274 k/uL (150-450); RBC 4.84 m/uL (4.30-5.90); RDW 13.4 % (11.5-15.5); WBC 4.9 k/uL (3.8-10.6)
== END 2018-06-12 14:15 | disposition home or self-care (01) ==
LOC: EC 08:59
DX: K52.9 Noninfective gastroenteritis and colitis, unspecified (principal); E86.0 Dehydration; F17.200 Nicotine dependence, unspecified, uncomplicated; Z88.8 Allergy status to other drugs, medicaments and biological substances
CPT/HCPCS: 36415; 80053; 82550; 82553; 83690; 83735; 84100; 84484; 85025; 99284

== ENCOUNTER 2019-03-16 11:20 | Emergency (ER) | payer BC ==
[2019-03-16 11:31] VITALS: BP 110/73; PULSE 89; RESP 16; TEMP 97.8
--- NOTE | 2019-03-16 12:14 | ED ---
Alcohol HPI - General Chief Complaint: Alcohol Stated Complaint: alcohol rehab Source: patient Mode of arrival: ambulatory Limitations: no limitations - History of Present Illness Initial Comments: 43yo male presenting for alcohol abuse redilatation. Patient states that he has been abusing alcohol since age 17. Patient states it is affecting his entire life including his family and was seeking help. He thought he was able to come to emergency department for alcohol rehab. Patient denies any shakiness denies any seizure activity nausea vomiting abdominal pain chest pain shortest of breath or any other symptoms. Patient states he feels fine he states he had 2 large beers this morning. Patient states he is not sure where to go for resources. Remaining review of systems negative upon arrival patient appears well no signs of acute distress. Patient denies any suicidal or homicidal ideation patient denies any hallucinations auditory or visual. - Related Data Home Medications Medication Instructions Recorded Confirmed No Known Home Medications 03/16/19 03/16/19 Allergies Allergy/AdvReac Type Severity Reaction Status Date / Time lactose AdvReac Diarrhea Verified 03/16/19 11:48 Review of Systems ROS Statement: Those systems with pertinent positive or pertinent negative responses have been documented in the HPI. ROS Other: All systems not noted in ROS Statement are negative. Past Medical History Past Medical History: GERD/Reflux History of Any Multi-Drug Resistant Organisms: None Reported Past Surgical History: No Surgical Hx Reported Past Psychological History: No Psychological Hx Reported Smoking Status: Current every day smoker Past Alcohol Use History: Abuse, Daily, Heavy Past Drug Use History: None Reported - Past Family History Father Family Medical History: Diabetes Mellitus Additional Family Medical History / Comment(s): Father had diabetes and it runs strongley in his family. Mother Additional Family Medical History / Comment(s): Mother has had bronchitis. General Exam - General Exam Comments Initial Comments: General: The patient is awake and alert, in no distress, and does not appear acutely ill. Eye: +3 mm pupils are equal, round and reactive to light, extra-ocular movements are intact. No nystagmus. There is normal conjunctiva bilaterally. No signs of icterus. Ears, nose, mouth and throat: There are moist mucous membranes and no oral lesions. Neck: The neck is supple, there is no tenderness or JVD. Cardiovascular: There is a regular rate and rhythm. No murmur, rub or gallop is appreciated. Respiratory: Lungs are clear to auscultation, respirations are non-labored, breath sounds are equal. No wheezes, stridor, rales, or rhonchi. Musculoskeletal: Normal ROM, no tenderness. Strength 5/5. Sensation intact. Radial pulses equal bilaterally 2+. Neurological: A&O x 3. CN II-XII intact grossly, There are no obvious motor or sensory deficits. Coordination appears grossly intact. Speech is normal. No tremors Skin: Skin is warm and dry and no rashes or lesions are noted. Psychiatric: Cooperative, appropriate mood & affect, normal judgment. Does not appear acutely psychotic Limitations: no limitations Course Vital Signs 03/16/19 11:27 Temperature 97.8 F Pulse Rate 89 Respiratory 16 Rate Blood Pressure 110/73 O2 Sat by Pulse 96 Oximetry Medical Decision Making - Medical Decision Making 43-year-old male presenting for alcohol rehabilitation. Patient intoxicated. No other complaints. Denies any injury. Patient thought we had rehabilitation this LAD in the hospital. Patient denies any suicide homicidal ideation does not appear acutely psychotic. Patient provided resources for rehabilitation centers. Patient had a sober ride home and was discharged from emergency department. no acute examination abnormalities. Discussed case wiht Dr. Garcia and patient was discharged appearing well. Disposition Clinical Impression: Alcohol intoxication, History of alcohol abuse Disposition: HOME SELF-CARE Condition: Good Instructions (If sedation given, give patient instructions): Alcohol Intoxication (ED), Abuse of Alcohol (ED) Additional Instructions: Please use medication as discussed. Please use rehab sources as discussed. Please refrain from driving today as you're intoxicated. Please return to emergency room if the symptoms increase or worsen or for any other concerns. Is patient prescribed a controlled substance at d/c from ED?: No Referrals: Robert Nuñez MD [Primary Care Provider] - 1-2 days Time of Disposition: 12:14
== END 2019-03-16 12:34 | disposition home or self-care (01) ==
LOC: EC 11:20
DX: F10.129 Alcohol abuse with intoxication, unspecified (principal); F17.200 Nicotine dependence, unspecified, uncomplicated; Z91.011 Allergy to milk products
CPT/HCPCS: 99283

== ENCOUNTER 2019-03-24 16:50 | Emergency (ER) | payer BC ==
[2019-03-24 17:31] LABS: Glucose,Whole Blood 93 mg/dL (75-99)
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
[2019-03-24 17:34] LABS: Amphetamine Screen,Urine Not Detected (NotDetected); Barbiturate Screen,Urine Not Detected (NotDetected); Benzodiazepines Screen,Urine Not Detected (NotDetected); Cocaine Screen,Urine Not Detected (NotDetected); Methadone Screen, Urine Not Detected (NotDetected); Opiate Screen,Urine Not Detected (NotDetected); Oxycodone Screen, Urine Not Detected (NotDetected); Phencyclidine Screen,Urine Not Detected (NotDetected); Tricyclic Antidepressant,Urine Not Detected (NotDetected); Urn Cannabinoid Scrn Not Detected (NotDetected)
[2019-03-24 18:24] LABS: ALT 43 U/L (21-72); AST 37 U/L (17-59); African American GFR (CKD) >90 (>60 ml/min/1.73 sqM); Albumin 4.9 g/dL (3.5-5.0); Alkaline Phosphatase 75 U/L (38-126); Anion Gap 14 mmol/L; Blood Urea Nitrogen 10 mg/dL (9-20); Calcium 9.7 mg/dL (8.4-10.2); Carbon Dioxide 22 mmol/L (22-30); Chloride 106 mmol/L (98-107); Glucose 96 mg/dL (74-99); Potassium 4.3 mmol/L (3.5-5.1); Sodium 142 mmol/L (137-145); Total Bilirubin 0.6 mg/dL (0.2-1.3); Total Protein 8.2 g/dL (6.3-8.2)
[2019-03-24 18:26] LABS: Alcohol 218 mg/dL
[2019-03-24 18:33] LABS: Basophils # (A) 0.1 k/uL (0-0.2); Basophils % (A) 1 %; Eosinophils # (A) 0.1 k/uL (0-0.7); Eosinophils % (A) 2 %; HCT 43.9 % (39.0-53.0); HGB 14.9 gm/dL (13.0-17.5); Lymphocytes # (A) 1.7 k/uL (1.0-4.8); Lymphocytes % (A) 31 %; MCHC 33.9 g/dL (31.0-37.0); MCV 88.5 fL (80.0-100.0); Mean Platelet Volume 6.6; Monocytes # (A) 0.4 k/uL (0-1.0); Monocytes % (A) 7 %; Neutrophils # (A) 3.1 k/uL (1.3-7.7); Neutrophils % (A) 56 %; Platelet Count 165 k/uL (150-450); RBC 4.96 m/uL (4.30-5.90); WBC 5.4 k/uL (3.8-10.6)
[2019-03-25 02:07] VITALS: BP 120/67; PULSE 105; RESP 18; TEMP 98.6
== END 2019-03-25 02:00 | disposition home or self-care (01) ==
LOC: EC 16:50
DX: F10.129 Alcohol abuse with intoxication, unspecified (principal); F17.200 Nicotine dependence, unspecified, uncomplicated; Z91.011 Allergy to milk products
CPT/HCPCS: 36415; 80053; 80306; 80320; 82075; 85025; 99285

== ENCOUNTER 2019-06-02 12:42 | Emergency (ER) | payer BC ==
[2019-06-02 12:48] VITALS: RESP 20
--- NOTE | 2019-06-02 13:50 | XR ---
EXAMINATION TYPE: XR Hip Complete LT DATE OF EXAM: 06/02/2019 COMPARISON: NONE HISTORY: Pain TECHNIQUE: 2 views submitted FINDINGS: There is no evidence of erosive change or acute fracture. There is hypertrophic change of the acetabu lum and moderate to severe arthropathy of the hip. There is a lucency within the acetabulum. Calcific ation the pelvis likely vascular. IMPRESSION: 1. 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 There is a lucency within the ac etabulum which could be on the basis of an age indeterminate fracture and correlation with CT scan is recommended
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
[2019-06-02 15:26] VITALS: BP 116/78; PULSE 82; TEMP 98.7
== END 2019-06-02 15:25 | disposition home or self-care (01) ==
LOC: EC 12:42
DX: M25.852 Other specified joint disorders, left hip (principal); M79.605 Pain in left leg; M12.852 Other specific arthropathies, not elsewhere classified, left hip; M25.752 Osteophyte, left hip; F17.200 Nicotine dependence, unspecified, uncomplicated; Z91.018 Allergy to other foods; Z79.1 Long term (current) use of non-steroidal anti-inflammatories (NSAID); Z87.81 Personal history of (healed) traumatic fracture
CPT/HCPCS: 73502; 99284

== ENCOUNTER 2020-05-29 15:26 | Emergency (ER) | payer BC, OTHER ==
[2020-05-29 15:36] VITALS: TEMP 97.4
--- NOTE | 2020-05-29 16:26 | ED ---
Skin/Abscess/FB HPI - General Chief complaint: Skin/Abscess/Foreign Body Stated complaint: arm pain Time Seen by Provider: 05/29/20 15:28 Source: patient, EMS Mode of arrival: EMS Limitations: no limitations - History of Present Illness Initial comments: 44-year-old male presenting to the emergency department with chief complaint of a mass on the shoulder. Patient reports this has been present there for the past 12 years. States he has had no issues with it but over the last year has gradually increased in size. Patient reports the last few days it is discomforting and painful. Patient states he went to his primary care physician who advised him to come to the emergency department for further evaluation. Patient denies any erythema or discharge from the region. Denies any injuries at the site of the mass. - Related Data Home Medications Medication Instructions Recorded Confirmed Ibuprofen [Motrin Ib] 600 mg PO DAILY 03/24/19 06/02/19 Allergies Allergy/AdvReac Type Severity Reaction Status Date / Time lactose AdvReac Diarrhea Verified 05/29/20 15:36 Review of Systems ROS Statement: Those systems with pertinent positive or pertinent negative responses have been documented in the HPI. ROS Other: All systems not noted in ROS Statement are negative. Past Medical History Past Medical History: GERD/Reflux History of Any Multi-Drug Resistant Organisms: None Reported Past Surgical History: No Surgical Hx Reported Past Psychological History: No Psychological Hx Reported Smoking Status: Current every day smoker Past Alcohol Use History: Abuse, Daily, Heavy Past Drug Use History: None Reported - Past Family History Father Family Medical History: Diabetes Mellitus Additional Family Medical History / Comment(s): Father had diabetes and it runs strongley in his family. Mother Additional Family Medical History / Comment(s): Mother has had bronchitis. General Exam Limitations: no limitations General appearance: alert, in no apparent distress, obese Head exam: Present: atraumatic, normocephalic, normal inspection Eye exam: Present: normal appearance, PERRL, EOMI Pupils: Present: normal accommodation ENT exam: Present: normal exam, normal oropharynx, mucous membranes moist Neck exam: Present: normal inspection, full ROM. Absent: tenderness Respiratory exam: Present: normal lung sounds bilaterally. Absent: respiratory distress, wheezes, rales Cardiovascular Exam: Present: regular rate, normal rhythm, normal heart sounds Extremities exam: Present: full ROM, tenderness (Mild tenderness to palpation of the mass), normal capillary refill. Absent: normal inspection (Cutaneous mass on the left shoulder region measuring approximately 10 cm in diameter. No signs of infection. No overlying cellulitic skin changes. No discharge noted. The mass is movable.), pedal edema, joint swelling, calf tenderness Back exam: Present: normal inspection, full ROM. Absent: tenderness, CVA tenderness (R), CVA tenderness (L) Neurological exam: Present: alert, oriented X3 Psychiatric exam: Present: normal affect, normal mood Skin exam: Present: warm, dry, intact, normal color Course Vital Signs 05/29/20 15:33 Temperature 97.4 F L Pulse Rate 85 Respiratory 20 Rate Blood Pressure 111/77 O2 Sat by Pulse 99 Oximetry Medical Decision Making - Medical Decision Making 44-year-old male presenting to emergency Department with a chief complaint of a mass on the shoulder. On physical examination, this is a mass measuring approximately 10 cm in diameter and it is mobile. No signs of infection at this time. Ultrasound reveals an 8.9 C and nonspecific mass. This couldn't include a lipoma. MRI is recommended per radiology. Patient was advised to follow with general surgery. Return parameters were discussed the patient is understanding and agreeable. Case discussed with physician. Disposition Clinical Impression: Mass of skin of left shoulder Disposition: HOME SELF-CARE Condition: Stable Instructions (If sedation given, give patient instructions): Lipoma (ED), Lipoma Removal (DC), Soft Tissue Mass (ED) Additional Instructions: Follow-up with Gen. surgery. Return to emergency department if symptoms worsen. Is patient prescribed a controlled substance at d/c from ED?: No Referrals: Joan Cole MD [Primary Care Provider] - 1-2 days Gautam Roque MD [STAFF PHYSICIAN] - 1-2 days Time of Disposition: 16:47
--- NOTE | 2020-05-29 16:26 | US ---
EXAMINATION TYPE: US extremity nonvasc mass LT DATE OF EXAM: 05/29/2020 COMPARISON: NONE CLINICAL HISTORY: left shoulder mass, present for 12 yrs, bigger x1y. Pt states large palpable mass l eft lateral upper arm x 12 years, recently gotten painful Palpable area felt by technologist and is movable and soft when palpated In area of pt's palpable there appears to be a nonspecific mass = 8.9 x 3.3 x 8.2 cm IMPRESSION: 1. There is a 8.9 cm nonspecific mass. Differential diagnosis does include lipoma or atypical lipoma. Other etiologies not excluded. MRI is recommended.
[2020-05-29 17:01] VITALS: BP 111/79; PULSE 59; RESP 16
== END 2020-05-29 17:01 | disposition home or self-care (01) ==
LOC: EC 15:26
DX: R22.32 Localized swelling, mass and lump, left upper limb (principal); F17.200 Nicotine dependence, unspecified, uncomplicated; Z91.048 Other nonmedicinal substance allergy status
CPT/HCPCS: 99284

== ENCOUNTER 2020-08-08 02:19 | Emergency (ER) | payer BC, OTHER ==
[2020-08-08 02:29] VITALS: RESP 18; TEMP 98.1
[2020-08-08] MEDS ORDERED: diphenhydrAMINE 50 MG/ML 1 ML VIAL IVP STA (02:58)
[2020-08-08] MEDS ORDERED: SODIUM CHLORIDE 0.9% 1,000 ML IV ONE (02:58)
[2020-08-08] MEDS ORDERED: KETOROLAC 15 MG/ML 1 ML VIAL IVP STA (02:58)
[2020-08-08] MEDS ORDERED: METOCLOPRAMIDE 5 MG/ML 2 ML VIAL IVP STA (02:58)
--- NOTE | 2020-08-08 03:17 | ED ---
Headache HPI - General Chief Complaint: Headache Stated Complaint: headache Time Seen by Provider: 08/08/20 02:57 Mode of arrival: ambulatory Limitations: no limitations - History of Present Illness Initial Comments: This patient is a 44-year-old man who has history of headaches, presenting to be evaluated for headache. He states that this is similar to his usual headaches but was not relieved with ibuprofen in fact he was having vomiting and could not keep the medication down. Headache started 2 days ago. It is similar in location and intensity to his usual headaches. No fever or chills. No neck stiffness or pain. No neurologic symptoms. MD Complaint: headache Onset/Timin -: days(s) Onset Description: gradual Location: right, left, frontal Severity: moderate Quality: aching, similar to previous headaches Consistency: constant Improves With: nothing Worsens With: none Context: occurred at rest Associated Symptoms: nausea, vomiting Treatments Prior to Arrival: Ibuprofen - Related Data Home Medications Medication Instructions Recorded Confirmed Ibuprofen [Motrin Ib] 600 mg PO DAILY 03/24/19 06/02/19 Allergies Allergy/AdvReac Type Severity Reaction Status Date / Time lactose AdvReac Diarrhea Verified 08/08/20 02:29 Review of Systems ROS Statement: Those systems with pertinent positive or pertinent negative responses have been documented in the HPI. ROS Other: All systems not noted in ROS Statement are negative. Constitutional: Denies: fever, chills Eyes: Denies: eye pain, vision change ENT: Denies: ear pain, hearing loss, congestion Respiratory: Denies: cough, dyspnea Cardiovascular: Denies: chest pain Gastrointestinal: Reports: nausea, vomiting. Denies: abdominal pain, diarrhea, hematemesis Musculoskeletal: Denies: back pain Skin: Denies: rash Neurological: Reports: headache. Denies: weakness, numbness, confusion Past Medical History Past Medical History: GERD/Reflux History of Any Multi-Drug Resistant Organisms: None Reported Past Surgical History: No Surgical Hx Reported Past Psychological History: No Psychological Hx Reported Smoking Status: Current every day smoker Past Alcohol Use History: Abuse, Daily, Heavy Past Drug Use History: None Reported - Past Family History Father Family Medical History: Diabetes Mellitus Additional Family Medical History / Comment(s): Father had diabetes and it runs strongley in his family. Mother Additional Family Medical History / Comment(s): Mother has had bronchitis. General Exam Limitations: no limitations General appearance: alert, in no apparent distress Head exam: Present: atraumatic, normocephalic, normal inspection Eye exam: Present: normal appearance, PERRL, EOMI. Absent: scleral icterus, conjunctival injection, nystagmus ENT exam: Present: normal oropharynx Neck exam: Present: normal inspection, full ROM. Absent: tenderness, meningismus Neurological exam: Present: alert, oriented X3, CN II-XII intact. Absent: motor sensory deficit Skin exam: Present: warm, dry, intact, normal color. Absent: rash Course Vital Signs 08/08/20 02:26 Temperature 98.1 F Pulse Rate 106 H Respiratory 18 Rate Blood Pressure 128/79 O2 Sat by Pulse 97 Oximetry Disposition Clinical Impression: Headache Disposition: HOME SELF-CARE Condition: Good Instructions (If sedation given, give patient instructions): Acute Headache (ED) Is patient prescribed a controlled substance at d/c from ED?: No Referrals: Robert Nuñez MD [Primary Care Provider] - 1-2 days
[2020-08-08 04:42] VITALS: BP 111/74; PULSE 101
== END 2020-08-08 04:43 | disposition home or self-care (01) ==
LOC: EC 02:19
DX: R51.9 Headache, unspecified (principal); R11.2 Nausea with vomiting, unspecified; F17.200 Nicotine dependence, unspecified, uncomplicated; F10.10 Alcohol abuse, uncomplicated; Z91.011 Allergy to milk products; Z87.19 Personal history of other diseases of the digestive system
CPT/HCPCS: 99283; 96374; 96375 ×2; 96361; J1200; J2765; J1885

== ENCOUNTER 2020-08-09 18:19 | Observation (INO) | payer BC, OTHER ==
--- NOTE | 2020-08-09 19:16 | ED ---
General Adult HPI - General Chief complaint: Psychiatric Symptoms Stated complaint: Suicidal Time Seen by Provider: 08/09/20 18:25 Source: patient, EMS, RN notes reviewed, old records reviewed Mode of arrival: EMS Limitations: no limitations - History of Present Illness Initial comments: This is a 44-year-old male with the chief complaint of wanting to commit suicide. Patient has no plan per patient states he was drinking heavily. Patient states his kids out [place] and he never sees him and that is gotten very depressed per patient also states that the last thing he said he was father was something very mean and that hot some every day. Patient states he was feeling down so he started drinking today. Patient denies any drug use. Patien t denies any physical complaints today. In fact the patient states he feels great he denies chest pain difficulty breathing shortness of breath patient denies headache patient denies numbness weakness. - Related Data Home Medications Medication Instructions Recorded Confirmed Ibuprofen [Motrin Ib] 600 mg PO DAILY 03/24/19 06/02/19 Allergies Allergy/AdvReac Type Severity Reaction Status Date / Time lactose AdvReac Diarrhea Verified 08/09/20 18:22 Review of Systems ROS Statement: Those systems with pertinent positive or pertinent negative responses have been documented in the HPI. ROS Other: All systems not noted in ROS Statement are negative. Past Medical History Past Medical History: GERD/Reflux History of Any Multi-Drug Resistant Organisms: None Reported Past Surgical History: No Surgical Hx Reported Past Psychological History: No Psychological Hx Reported Smoking Status: Current every day smoker Past Alcohol Use History: Abuse, Daily, Heavy Past Drug Use History: None Reported - Past Family History Father Family Medical History: Diabetes Mellitus Additional Family Medical History / Comment(s): Father had diabetes and it runs strongley in his family. Mother Additional Family Medical History / Comment(s): Mother has had bronchitis. General Exam - General Exam Comments Initial Comments: GENERAL: Patient is well-developed and well-nourished. Patient is nontoxic and well- hydrated and is in no acute distress. ENT: Neck is soft and supple. No significant lymphadenopathy is noted. Oropharynx is clear. Moist mucous membranes. Neck has full range of motion without eliciting any pain. EYES: The sclera were anicteric and conjunctiva were pink and moist. Extraocular movements were intact and pupils were equal round and reactive to light. Eyelids were unremarkable. PULMONARY: Unlabored respirations. Good breath sounds bilaterally. No audible rales rhonchi or wheezing was noted. CARDIOVASCULAR: There is a regular rate and rhythm without any murmurs gallops or rubs. ABDOMEN: Soft and nontender with normal bowel sounds. SKIN: Skin is clear with no lesions or rashes and otherwise unremarkable. NEUROLOGIC: Patient is alert and oriented x3. Cranial nerves II through XII are grossly intact. Motor and sensory are also intact. Normal speech, volume and content. Symmetrical smile. MUSCULOSKELETAL: Normal extremities with adequate strength and full range of motion. LYMPHATICS: No significant lymphadenopathy is noted PSYCHIATRIC: Normal psychiatric evaluation. Limitations: no limitations Course Vital Signs 08/09/20 18:22 Temperature 98 F Pulse Rate 88 Respiratory 18 Rate Blood Pressure 131/83 O2 Sat by Pulse 96 Oximetry Disposition Clinical Impression: Suicidal ideation, Alcohol intoxication Disposition: ADMITTED IP TO THIS HOSP Referrals: Robert Nuñez MD [Primary Care Provider] - 1-2 days Time of Disposition: 19:44
[2020-08-09] MEDS ORDERED: SODIUM CHLORIDE 0.9% 1,000 ML IV ONE (19:18)
[2020-08-09] MEDS ORDERED: SODIUM CHLORIDE 0.9% 1,000 ML with MVI, ADULT NO.4 WITH VIT K 10 ML, THIAMINE 100 MG, F... IV ONE ×4 (19:18)
[2020-08-09] MEDS ORDERED: THIAMINE 100 MG/ML 2 ML VIAL IM STA (19:51)
[2020-08-09] MEDS ORDERED: LORazepam 2 MG/ML INJ IV PRN ×3 (19:51)
[2020-08-09 19:54] LABS: Basophils % (A) 1 %; Eosinophils # (A) 0.1 k/uL (0-0.7); Eosinophils % (A) 3 %; HCT 44.7 % (39.0-53.0); HGB 15.2 gm/dL (13.0-17.5); Lymphocytes # (A) 1.7 k/uL (1.0-4.8); Lymphocytes % (A) 38 %; MCH 29.9 pg (25.0-35.0); MCHC 33.9 g/dL (31.0-37.0); MCV 88.2 fL (80.0-100.0); Mean Platelet Volume 6.3; Monocytes # (A) 0.3 k/uL (0-1.0); Monocytes % (A) 7 %; Neutrophils # (A) 2.3 k/uL (1.3-7.7); Neutrophils % (A) 49 %; Platelet Count 304 k/uL (150-450); RBC 5.07 m/uL (4.30-5.90); RDW 12.9 % (11.5-15.5); WBC 4.6 k/uL (3.8-10.6)
[2020-08-09 20:11] LABS: ALT 39 U/L (4-49); AST 52 U/L (17-59); African American GFR (CKD) >90 (>60 ml/min/1.73 sqM); Albumin 4.8 g/dL (3.5-5.0); Alkaline Phosphatase 79 U/L (38-126); Anion Gap 15 mmol/L; Blood Urea Nitrogen 14 mg/dL (9-20); Calcium 9.3 mg/dL (8.4-10.2); Carbon Dioxide 21 mmol/L (22-30); Chloride 105 mmol/L (98-107); Glucose 141 mg/dL (74-99); Magnesium 2.2 mg/dL (1.6-2.3); Non-African American GFR(CKD) >90 (>60 ml/min/1.73 sqM); Potassium 4.8 mmol/L (3.5-5.1); Sodium 141 mmol/L (137-145); Total Bilirubin 0.7 mg/dL (0.2-1.3); Total Protein 8.1 g/dL (6.3-8.2)
[2020-08-10] MEDS ORDERED: THIAMINE 100 MG TAB PO SCH (07:30)
--- NOTE | 2020-08-10 10:36 | P.HPIM ---
History of Present Illness H&P Date: 08/10/20 Chief Complaint: Suicidal ideation, alcohol intoxication This is a 44-year-old male patient who presented to the ER with complaints of suicidal ideation. Patient reports he has been very depressed due to his kids being on an [place] started drinking quite heavily. Patient reports he's had issues with alcohol abuse since he was 17. Additional medical history includes nicotine dependence, alcohol abuse in which he previously has gone to rehab and depression. Patient is currently resting comfortably in bed safety compliance specialist at bedside. Patient denies any suicidal ideation at this time. Patient appears calm answers questions appropriately. Per nursing staff patient has not required any Ativan. Psychiatry services have been consulted. At this time patient denies chest pain or shortness of breath. Patient denies nausea vomiting or diarrhea. Patient denies any urinary burning or frequency Review of Systems Please refer to HPI otherwise unremarkable Past Medical History Past Medical History: GERD/Reflux Additional Past Medical History / Comment(s): acid reflux with spicy food History of Any Multi-Drug Resistant Organisms: None Reported Past Surgical History: No Surgical Hx Reported Past Anesthesia/Blood Transfusion Reactions: No Reported Reaction Past Psychological History: Depression Additional Psychological History / Comment(s): Pt resides with his girlfriend. He works. He does not drive, he rides his bike or walks to work and appts. Smoking Status: Current every day smoker Past Alcohol Use History: Abuse, Daily, Heavy Additional Past Alcohol Use History / Comment(s): Pt started smoking in 1992 and is a ppd smoker. Past Drug Use History: None Reported, Marijuana Additional Drug Use History / Comment(s): no marijuana use currently-last used when 28 years old - Past Family History Father Family Medical History: Diabetes Mellitus Additional Family Medical History / Comment(s): Father had diabetes and it runs strongley in his family. Mother Additional Family Medical History / Comment(s): Mother has had bronchitis. Medications and Allergies Home Medications Medication Instructions Recorded Confirmed Type No Known Home Medications 08/09/20 08/09/20 History Allergies Allergy/AdvReac Type Severity Reaction Status Date / Time lactose AdvReac Diarrhea Verified 08/09/20 19:51 Physical Exam Vitals: Vital Signs Temp Pulse Pulse Resp BP BP Pulse Ox 08/10/20 09:20 21 08/10/20 08:18 98.4 F 94 21 132/67 96 08/10/20 06:47 99 F 105 H 16 123/76 97 08/10/20 02:00 98.4 F 103 H 18 129/84 98 08/09/20 18:22 98 F 88 18 131/83 96 Intake and Output 08/09/20 08/10/20 08/10/20 22:59 06:59 14:59 Other: # Voids 1 Weight 99.79 kg Head normocephalic Neck supple Lungs clear to auscultation bilaterally no wheezing or crackles Heart regular rate and rhythm S1-S2, no rub or gallop Abdomen is soft nontender nondistended positive bowel sounds no hepatosplenomegaly Extremities no edema Neuro alert and orientated to 3 Results CBC & Chem 7: 08/09/20 19:34 08/09/20 19:34 Labs: Abnormal Lab Results - Last 24 Hours (Table) 08/09/20 Range/Units 19:34 Carbon Dioxide 21 L (22-30) mmol/L Glucose 141 H (74-99) mg/dL Assessment and Plan Assessment: 1. Suicidal ideation. new accounts banking representative in place. Psychiatry service is consulted 2. EtOH. Patient maintained on alcohol withdrawal protocol. Thiamine ordered 3. History of depression 4. History of GERD 5. Nicotine dependence. Patient reports he smokes a pack per day. Patient educated greater than 3 minutes on smoking cessation. Nicotine patch ordered DVT prophylaxis Lovenox. GI prophylaxis Protonix Time with Patient: Greater than 30
[2020-08-10] MEDS ORDERED: NALTREXONE HCL 50 MG TAB PO SCH (12:15)
--- NOTE | 2020-08-10 13:21 | P.CN ---
Psychiatric Consult - . 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 REASON FOR REFERRAL: Psychiatry was consulted for suicidal ideations HISTORY OF PRESENT ILLNESS: The patient presented to the hospital yesterday with suicidal ideations and no plan. Patient apparently reported that she had been drinking heavily and not be able to see his kids and [place] according to ER report. Patients nurse claims that patient is not having any withdrawal symptoms and his CIWA's have been 0 and also the patient has not been endorsing suicidal thoughts. Patient was seen at the bedside with his one-to-one sitter. She states that he was feeling "depressed yesterday" and states that he had had "a lot on my mind". He spoke about missing his father approximately 3-4 years ago since he from diabetes. He states that he also has been missing his children who he recently saw at his mother's house however went back to [place]. He claims that he did not know when he is going to see them next and it is been hard on him. He states that 2 days ago he started drinking again more heavily approximately 4 cans of 24 and [place] in one day. He states that today he feels better and less depressed and feels more confident in himself. He also claims that he does not have any anxiety today and is denying any withdrawal symptoms. He is denying any access to guns or weapons. He states that he slept fairly last night and his appetite is improved. At this time patient denies any suicidal or homical ideations, intent or plan. Patient denies any auditory, visual hallucinations and denies any paranoia or delusions. Patients admits to using cigarettes daily and claims that he has used alcohol on and off since the age of 17. He claims that he has been in a rehab several years ago. He is denying any other recreational drug use. He states that he wants to live for his kids and for his future. PAST PSYCHIATRIC HISTORY: Patient has a a history of alcohol use however no other significant psychiatric history. Patient denies being on any psychiatric medications. Patient denies any previous psychiatric hospitalizations. He claims that he does not have a psychiatrist however states that he did therapy several years ago. Patient denies any history of suicide attempts in the past. PAST MEDICAL HISTORY: GERD. ALLERGIES: as per EMR. CHEMICAL DEPENDENCY HISTORY: as per HPI. FAMILY PSYCHIATRIC/SUBSTANCE USE HISTORY: States that his brother uses alcohol frequently. SOCIAL HISTORY: Patient was born and raised in [facility]. He states that he completed up to the 10th grade and then got his GED while he was incarcerated. He states that he has 2 kids works in a factory and visit his girlfriend in apartment. He claims that he is an ex-felon and was charged with robbery and served a total of 5 years in longterm and on probation. MENTAL STATUS EXAM: General Appearance: Patient appears to be well built, stated age is alert, pleasant, and attempts to be cooperative. Patient appears to have fair hygiene and grooming wearing hospital gown with fair eye contact. Behavior: Patient is calmly lying in bed without any agitated behavior. Attempts to be cooperative Speech: Patient's speech is fluent and nonpressured. Mood/Affect: Patient reports their mood is "better today", affect is congruent Suicidality/Homicidality: Patient denies having any suicidal or homicidal ideation intent or plan. Perceptions: Patient denies any visual hallucinations and denies any auditory hallucinations Though content/process: There is no evidence of any delusional thought content and thought process is linear and goal-directed. More future oriented. Memory and concentration: AOX3, grossly intact for the purposes of this session. Can spell "WORLD" backwards Judgment and insight: fair IMPRESSIONS: Depressive disorder unspecified, r/o adjustment disorder vs. alcohol induced depressive disorder vs. major depressive disorder. Alcohol abuse Nicotine dependence PLAN: -At this time patient DOES NOT meet criteria for inpatient psychiatric admission. -Would recommend the following medication changes/additions: Patient is agreeable to start naltrexone 50 mg daily for alcohol cravings. Hardwood [employer] Layer spoke with patient about starting an antidepressant medication however at this time patient states that he would like to think about it. Hardwood Floor Layer discussed either starting Zoloft 50mg daily or prozac 20mg daily for mood if patient wants to get started on it now before being discharged home. -CIWA protocol with PRN Ativan for alcohol withdrawal. Continue to monitor vital signs. -Can discontinue 1:1 sitter at this time as patient is not currently an imminent threat to themselves -joinery factory worker to provide patient with outpatient mental health/psychiatry resources for appropriate follow up upon discharge -Hardwood Floor Layer spoke with patient about substance abuse and the harmful effects on medical and mental health, patient verbally understood and agreed. -joinery factory worker to provide patient substance use treatment resources including AA/NA meetings in the community. -Patient claims that he would not like to do inpatient rehab at this time and part preferred to do outpatient treatment. -Communicated plan to patient's nurse -Psychiatry will sign off at this time -Please contact with any questions.
--- NOTE | 2020-08-10 14:23 | P.DS ---
Providers Date of admission: 08/09/20 19:48 Expected date of discharge: 08/10/20 Attending physician: Robert Nuñez Consults: 08/10/20 09:02 Consult Physician Routine Consulting Provider: Psychiatry - [facility] Psychiatry Consult Reason/Comments: suicidal ideation Do you want consulting provider notified?: Yes Primary care physician: Robert Nuñez [facility] Course: Diagnosis on discharge: 1. Suicidal ideation. music therapist in place. Psychiatry service is consulted 2. EtOH. Patient maintained on alcohol withdrawal protocol. Thiamine ordered 3. History of depression 4. History of GERD 5. Nicotine dependence. Patient reports he smokes a pack per day. Patient educated greater than 3 minutes on smoking cessation. Nicotine patch ordered Hospital course: This is a 44-year-old male patient who presented to the ER with complaints of suicidal ideation. Patient reports he has been very depressed due to his kids being on an [place] started drinking quite heavily. Patient reports he's had issues with alcohol abuse since he was 17. Additional medical history includes nicotine dependence, alcohol abuse in which he previously has gone to rehab and depression. Patient is currently resting comfortably in bed safety leader at bedside. Patient denies any suicidal ideation at this time. Patient appears calm answers questions appropriately. Per nursing staff patient has not required any Ativan. Psychiatry services have been consulted. At this time patient denies chest pain or shortness of breath. Patient denies nausea vomiting or diarrhea. Patient denies any urinary burning or frequency. On 08/10/2020 patient was seen and examined on the medical floor he is alert and oriented 3 in no apparent distress there is no evidence of alcohol withdrawal he did not require any Ativan he was evaluated by psychiatry and was cleared for discharge patient was given a prescription for naltrexone 50 mg by mouth daily thiamine 100 mg by mouth twice a day Prozac 10 mg by mouth daily and NicoDerm patches be followed in our office in one week Plan - Discharge Summary Discharge Rx Participant: Yes New Discharge Prescriptions: New Nicotine 14Mg/24Hr Patch [Habitrol] 1 patch TRANSDERM DAILY patch Thiamine [Vitamin B-1] 100 mg PO BID-W/MEALS tab FLUoxetine HCL [PROzac] 10 mg PO DAILY 30 Days #30 capsule Naltrexone HCl [Revia] 50 mg PO DAILY tab Discharge Medication List FLUoxetine HCL [PROzac] 10 mg PO DAILY 30 Days #30 capsule 08/10/20 [Rx] Naltrexone HCl [Revia] 50 mg PO DAILY tab 08/10/20 [Rx] Nicotine 14Mg/24Hr Patch [Habitrol] 1 patch TRANSDERM DAILY patch 08/10/20 [Rx] Thiamine [Vitamin B-1] 100 mg PO BID-W/MEALS tab 08/10/20 [Rx] Follow up Appointment(s)/Referral(s): Robert Nuñez MD [Primary Care Provider] - 1-2 days
[2020-08-10 14:45] VITALS: RESP 17
[2020-08-10 14:52] VITALS: BP 155/105; PULSE 98; TEMP 98.9
[2020-08-11] MEDS ORDERED: PANTOPRAZOLE 40 MG TABLET PO SCH (07:30)
[2020-08-11] MEDS ORDERED: ENOXAPARIN 40 MG/0.4 ML SYRINGE SQ SCH (09:00)
[2020-08-11] MEDS ORDERED: NICOTINE 14MG/24HR PATCH TRANSDERM SCH (09:00)
== END 2020-08-10 15:43 | disposition home or self-care (01) ==
LOC: EC 18:19 → 6NMEDSUR 19:48 → 4SSUR 20:22
PROVIDERS: ADMIT Internal Medicine; ATTEND Internal Medicine
DX: R45.851 Suicidal ideations (principal); F10.129 Alcohol abuse with intoxication, unspecified; F32.9 Major depressive disorder, single episode, unspecified; K21.9 Gastro-esophageal reflux disease without esophagitis; E73.9 Lactose intolerance, unspecified; F17.210 Nicotine dependence, cigarettes, uncomplicated; Z79.1 Long term (current) use of non-steroidal anti-inflammatories (NSAID); Z82.5 Family history of asthma and other chronic lower respiratory diseases; Z83.3 Family history of diabetes mellitus; Z20.822 Contact with and (suspected) exposure to COVID-19
CPT/HCPCS: 82075; 96372; 99285; 36415; 80053; 83735; 85025; 87635; G0378 ×2; J3411; 96374

== ENCOUNTER 2020-10-10 17:45 | Emergency (ER) | payer BC, OTHER ==
[2020-10-10 17:49] VITALS: BP 143/79; RESP 18; TEMP 99.4
[2020-10-10] MEDS ORDERED: KETOROLAC 15 MG/ML 1 ML VIAL IM STA (18:14)
[2020-10-10] MEDS ORDERED: ORPHENADRINE 30 MG/ML 2 ML VIAL IM STA (18:14)
[2020-10-10 18:29] LABS: Appearance,Urine Clear (Clear); Bilirubin,Urine Negative (Negative); Blood,Urine Negative (Negative); Color,Urine Yellow; Glucose,Urine (UA) Negative (Negative); Ketones,Urine Negative (Negative); Leukocyte Esterase,Urine Negative (Negative); Nitrite,Urine Negative (Negative); PH, Urine 5.5 (5.0-8.0); Protein,Urine Negative (Negative); Specific Gravity,Urine 1.015 (1.001-1.035); Urobilinogen,Urine <2.0 mg/dL (<2.0)
--- NOTE | 2020-10-10 19:08 | ED ---
General Adult HPI - General Chief complaint: Back Pain/Injury Stated complaint: Back pain Time Seen by Provider: 10/10/20 17:52 Source: patient Mode of arrival: ambulatory Limitations: no limitations - History of Present Illness Initial comments: 44-year-old male with a past medical history of GERD presents to the emergency room for a chief of back pain. 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 On his way home he felt a strain in the right side of his low back. patient reports that this worsens with movement. Patient denies any bladder or bowel changes, saddle anesthesia, or weakness of the lower extremities. Patient denies any fevers. Denies any history of IV drug abuse. Denies any previous back surgeries.Patient has no other complaints at this time including shortness of breath, chest pain, abdominal pain, nausea or vomiting, headache, or visual changes. - Related Data Previous Rx's Medication Instructions Recorded FLUoxetine HCL [PROzac] 10 mg PO DAILY 30 Days #30 capsule 08/10/20 Naltrexone HCl [Revia] 50 mg PO DAILY tab 08/10/20 Nicotine 14Mg/24Hr Patch [Habitrol] 1 patch TRANSDERM DAILY patch 08/10/20 Thiamine [Vitamin B-1] 100 mg PO BID-W/MEALS tab 08/10/20 Cyclobenzaprine [Flexeril] 10 mg PO TID #14 tab 10/10/20 Ibuprofen [Motrin] 600 mg PO Q8HR PRN #20 tab 10/10/20 Allergies Allergy/AdvReac Type Severity Reaction Status Date / Time lactose AdvReac Diarrhea Verified 10/10/20 17:46 Review of Systems ROS Statement: Those systems with pertinent positive or pertinent negative responses have been documented in the HPI. ROS Other: All systems not noted in ROS Statement are negative. Past Medical History Past Medical History: GERD/Reflux Additional Past Medical History / Comment(s): acid reflux with spicy food History of Any Multi-Drug Resistant Organisms: None Reported Past Surgical History: No Surgical Hx Reported Past Anesthesia/Blood Transfusion Reactions: No Reported Reaction Past Psychological History: Depression Smoking Status: Current every day smoker Past Alcohol Use History: Daily, Occasional Past Drug Use History: None Reported - Past Family History Father Family Medical History: Diabetes Mellitus Additional Family Medical History / Comment(s): Father had diabetes and it runs strongley in his family. Mother Additional Family Medical History / Comment(s): Mother has had bronchitis. General Exam Limitations: no limitations General appearance: alert, in no apparent distress Head exam: Present: atraumatic, normocephalic, normal inspection Eye exam: Present: normal appearance, PERRL, EOMI. Absent: scleral icterus, conjunctival injection, periorbital swelling ENT exam: Present: normal exam, mucous membranes moist Neck exam: Present: normal inspection, full ROM. Absent: tenderness, meningismus, lymphadenopathy Respiratory exam: Present: normal lung sounds bilaterally. Absent: respiratory distress, wheezes, rales, rhonchi, stridor Cardiovascular Exam: Present: regular rate, normal rhythm, normal heart sounds. Absent: systolic murmur, diastolic murmur, rubs, gallop, clicks GI/Abdominal exam: Present: soft, normal bowel sounds. Absent: distended, tenderness, guarding, rebound, rigid Extremities exam: Present: full ROM, normal capillary refill (cap refill less than 2 seconds in bilateral lower extremities, DP pulses 2+.) Back exam: Present: paraspinal tenderness (Right-sided SI joint tenderness). Absent: full ROM (pt has about 60 flexion of the lumbar spine, extension to neutral position.), CVA tenderness (R), CVA tenderness (L), vertebral tenderness Neurological exam: Present: alert Course Vital Signs 10/10/20 17:46 Temperature 99.4 F Pulse Rate 115 H Respiratory 18 Rate Blood Pressure 143/79 O2 Sat by Pulse 96 Oximetry Medical Decision Making - Medical Decision Making Vitals are stable. Patient initially tachycardic likely secondary to pain. This did improve to the high 90s throughout his stay. Patient has right-sided low back pain that is mechanical in nature. No red flag symptoms including weakness of the legs, saddle anesthesia, fevers, or bladder or bowel changes. Patient believes he strained his back while lifting at work. Patient was given Toradol and Norflex and did have improvement in symptoms. At this time patient be discharged home to follow up with primary care. I did discuss strict return parameters. I discussed this case with attending Dr. Patel who agrees with this assessment and treatment plan. - Lab Data Lab Results 10/10/20 Range/Units 18:23 Urine Color Yellow Urine Appearance Clear (Clear) Urine pH 5.5 (5.0-8.0) Ur Specific [place] 1.015 (1.001-1.035) Urine Protein Negative (Negative) Urine Glucose (UA) Negative (Negative) Urine Ketones Negative (Negative) Urine Blood Negative (Negative) Urine Nitrite Negative (Negative) Urine Bilirubin Negative (Negative) Urine Urobilinogen <2.0 (<2.0) mg/dL Ur Leukocyte Esterase Negative (Negative) Disposition Clinical Impression: Back pain Disposition: HOME SELF-CARE Condition: Good Instructions (If sedation given, give patient instructions): Acute Low Back Pain (ED) Additional Instructions: Take medications as directed. Do not drive or operate machinery while taking Flexeril. Please follow-up with your doctor in one to 2 days. Return to the emergency room for any worsening symptoms such as bladder or bowel changes, numbness or tingling of the groin or buttock, weakness of the legs, or fevers. Prescriptions: Cyclobenzaprine [Flexeril] 10 mg PO TID #14 tab Ibuprofen [Motrin] 600 mg PO Q8HR PRN #20 tab PRN Reason: Pain Is patient prescribed a controlled substance at d/c from ED?: No Referrals: Robert Nuñez MD [Primary Care Provider] - 1-2 days Time of Disposition: 19:25
[2020-10-10 19:42] VITALS: PULSE 99
== END 2020-10-10 19:41 | disposition home or self-care (01) ==
LOC: EC 17:45
DX: M54.5 Low back pain (principal); K21.9 Gastro-esophageal reflux disease without esophagitis; F32.9 Major depressive disorder, single episode, unspecified; F17.200 Nicotine dependence, unspecified, uncomplicated
CPT/HCPCS: 81003; 99283; 96372 ×2; J2360; J1885

== ENCOUNTER 2020-11-25 15:02 | Emergency (ER) | payer BC, OTHER ==
[2020-11-25 15:09] VITALS: BP 150/102; PULSE 111; RESP 16; TEMP 99.1
[2020-11-25] MEDS ORDERED: DIPH,PERTUS(ACELL)TETVAC-LF 0.5 ML VIAL IM ONE (16:29)
--- NOTE | 2020-11-25 16:40 | ED ---
Burn/Smoke HPI - General Chief complaint: Burn/Smoke Inhalation Stated complaint: Chemical Burn Tues Time Seen by Provider: 11/25/20 15:22 Source: patient, RN notes reviewed Mode of arrival: ambulatory Limitations: no limitations - History of Present Illness Initial comments: Patient is a 45-year-old male that presents to emergency department with abdom inal and bilateral upper extremity caustic de paz. He notes he was at work pulling buckets of alkaline solution when he got some spilled on his arms and abdomen. He noted that his boss gave him some ointment dressings and a gift card and told him that it would be okay. Patient reports 6 days post exposure with complaints of continuing discomfort and pain. He notes it is extremely tender to the touch and is sensitive. Patient denies any fevers or other systemic symptoms. Otherwise he was a well-appearing 45-year-old male. He denied any chest pain shortness of breath headache nausea vomiting diarrhea constipation fever fatigue chills. - Related Data Previous Rx's Medication Instructions Recorded FLUoxetine HCL [PROzac] 10 mg PO DAILY 30 Days #30 capsule 08/10/20 Naltrexone HCl [Revia] 50 mg PO DAILY tab 08/10/20 Nicotine 14Mg/24Hr Patch [Habitrol] 1 patch TRANSDERM DAILY patch 08/10/20 Thiamine [Vitamin B-1] 100 mg PO BID-W/MEALS tab 08/10/20 Cyclobenzaprine [Flexeril] 10 mg PO TID #14 tab 10/10/20 Ibuprofen [Motrin] 600 mg PO Q8HR PRN #20 tab 10/10/20 Cephalexin [Keflex] 500 mg PO Q6HR #40 cap 11/25/20 SILVER sulfADIAZINE Cream 1 applic TOPICAL BID 10 Days #100 11/25/20 [Silvadene 1% Cream] gram Allergies Allergy/AdvReac Type Severity Reaction Status Date / Time lactose AdvReac Diarrhea Verified 11/25/20 15:09 Review of Systems ROS Statement: Those systems with pertinent positive or pertinent negative responses have been documented in the HPI. ROS Other: All systems not noted in ROS Statement are negative. Past Medical History Past Medical History: GERD/Reflux Additional Past Medical History / Comment(s): acid reflux with spicy food History of Any Multi-Drug Resistant Organisms: None Reported Past Surgical History: No Surgical Hx Reported Past Anesthesia/Blood Transfusion Reactions: No Reported Reaction Past Psychological History: Depression Smoking Status: Current every day smoker Past Alcohol Use History: Daily, Occasional Past Drug Use History: None Reported - Past Family History Father Family Medical History: Diabetes Mellitus Additional Family Medical History / Comment(s): Father had diabetes and it runs strongley in his family. Mother Additional Family Medical History / Comment(s): Mother has had bronchitis. General Exam Limitations: no limitations General appearance: alert, in no apparent distress Head exam: Present: atraumatic, normocephalic, normal inspection Eye exam: Present: normal appearance, PERRL, EOMI. Absent: scleral icterus, conjunctival injection, periorbital swelling Neck exam: Present: normal inspection Respiratory exam: Present: normal lung sounds bilaterally. Absent: respiratory distress, wheezes, rales, rhonchi, stridor Cardiovascular Exam: Present: regular rate, normal rhythm, normal heart sounds. Absent: systolic murmur, diastolic murmur, rubs, gallop, clicks GI/Abdominal exam: Present: soft, normal bowel sounds. Absent: distended, tenderness, guarding, rebound, rigid Extremities exam: Present: normal inspection, full ROM, normal capillary refill. Absent: tenderness, pedal edema, joint swelling, calf tenderness Neurological exam: Present: alert, oriented X3 Psychiatric exam: Present: normal affect, normal mood Skin exam: Present: warm, dry, intact, normal color, other (Large area coming abdomen that is tender to the touch, erythematous margins with no signs or symp toms of infection, multiple locations on bilateral forearms and wrists that are erythematous with no signs or symptoms of infection Abdomen has second-degree de paz along with several small areas of BUE). Absent: rash Course Vital Signs 11/25/20 15:06 Temperature 99.1 F Pulse Rate 111 H Respiratory 16 Rate Blood Pressure 150/102 O2 Sat by Pulse 98 Oximetry Medical Decision Making - Medical Decision Making 45-year-old male with caustic de paz to his abdomen and bilateral upper extremities. Patient presents 6 days status post exposure. Poison control was contacted and said to treat like a chemical burn, if patient presented after 24 hours no irrigation was needed. Case discussed with Dr. Valdivia, patient can discharge home with burn ointment and oral antibiotics with follow-up to primary care burn clinic as needed. Tetanus vaccine updated. Disposition Clinical Impression: Burn caused by caustic alkali Disposition: HOME SELF-CARE Condition: Stable Instructions (If sedation given, give patient instructions): Chemical Skin Burn (ED) Additional Instructions: Please return to the Emergency Department if symptoms worsen or any other concerns. Follow-up primary care in the next several days. Use ointment as prescribed. Keep area clean and dry and covered. Take antibiotics as prescribed until complete. Follow-up with burn clinic as needed. Prescriptions: Cephalexin [Keflex] 500 mg PO Q6HR #40 cap SILVER sulfADIAZINE Cream [Silvadene 1% Cream] 1 applic TOPICAL BID 10 Days #100 gram Is patient prescribed a controlled substance at d/c from ED?: No Referrals: Robert Nuñez MD [Primary Care Provider] - 1-2 days Time of Disposition: 16:40
== END 2020-11-25 17:07 | disposition home or self-care (01) ==
LOC: EC 15:02
DX: T54.3X1A Toxic effect of corrosive alkalis and alkali-like substances, accidental (unintentional), initial encounter (principal); T21.22XA Burn of second degree of abdominal wall, initial encounter; T22.20XA Burn of second degree of shoulder and upper limb, except wrist and hand, unspecified site, initial encounter; K21.9 Gastro-esophageal reflux disease without esophagitis; F32.9 Major depressive disorder, single episode, unspecified; F17.200 Nicotine dependence, unspecified, uncomplicated; Z79.1 Long term (current) use of non-steroidal anti-inflammatories (NSAID); Z23 Encounter for immunization; Z79.899 Other long term (current) drug therapy; X08.8XXA Exposure to other specified smoke, fire and flames, initial encounter
CPT/HCPCS: 90471; 90715; 99283

== ENCOUNTER 2021-04-01 09:42 | Emergency (ER) | payer BC ==
[2021-04-01 12:48] VITALS: TEMP 98.8
--- NOTE | 2021-04-01 14:56 | XR ---
EXAMINATION TYPE: XR chest 2V DATE OF EXAM: 04/01/2021 COMPARISON: 10/23/2013 HISTORY: 45-year-old male with cough TECHNIQUE: PA and lateral views FINDINGS: Heart normal size. Aorta and pulmonary vasculature within normal limits. Mild hyperinflation. A small area of focal patchy density at the cardiac apex. No other consolidation or pleural effusion. IMPRESSION: COPD. Small area of atelectasis versus early infiltrate silhouetting the cardiac apex. Correlate clin ically.
[2021-04-01] MEDS ORDERED: DOXYCYCLINE 100 MG CAP PO STA (15:19)
--- NOTE | 2021-04-01 15:56 | ED ---
URI HPI - General Chief Complaint: Upper Respiratory Infection Stated Complaint: Cough,Runny nose Time Seen by Provider: 04/01/21 13:29 Source: patient Mode of arrival: ambulatory Limitations: no limitations - History of Present Illness Initial Comments: Patient presents to the emergency department with cough and congestion. He has a positive cold exposure, and would like to be tested. He has no chest or belly or back pain. He has no nausea or vomiting. He has taken no medicine for his symptoms. He has no lightheadedness. He has no palpitations. He has no exertional dyspnea. - Related Data Previous Rx's Medication Instructions Recorded Doxycycline Hyclate 100 mg PO Q12H 10 Days #20 tab 04/01/21 Allergies Allergy/AdvReac Type Severity Reaction Status Date / Time lactose AdvReac Diarrhea Verified 04/01/21 13:58 Review of Systems ROS Statement: Those systems with pertinent positive or pertinent negative responses have been documented in the HPI. ROS Other: All systems not noted in ROS Statement are negative. Past Medical History Past Medical History: GERD/Reflux Additional Past Medical History / Comment(s): acid reflux with spicy food History of Any Multi-Drug Resistant Organisms: None Reported Past Surgical History: No Surgical Hx Reported Past Anesthesia/Blood Transfusion Reactions: No Reported Reaction Past Psychological History: Depression Smoking Status: Current every day smoker Past Alcohol Use History: Daily, Occasional Past Drug Use History: None Reported - Past Family History Father Family Medical History: Diabetes Mellitus Additional Family Medical History / Comment(s): Father had diabetes and it runs strongley in his family. Mother Additional Family Medical History / Comment(s): Mother has had bronchitis. General Exam Limitations: no limitations General appearance: alert, in no apparent distress Head exam: Present: atraumatic, normocephalic, normal inspection Eye exam: Present: normal appearance, PERRL, EOMI. Absent: scleral icterus, conjunctival injection, periorbital swelling ENT exam: Present: normal exam, mucous membranes moist Neck exam: Present: normal inspection. Absent: tenderness, meningismus, lymphadenopathy Respiratory exam: Present: normal lung sounds bilaterally. Absent: respiratory distress, wheezes, rales, rhonchi, stridor Cardiovascular Exam: Present: regular rate, normal rhythm, normal heart sounds. Absent: systolic murmur, diastolic murmur, rubs, gallop, clicks GI/Abdominal exam: Present: soft, normal bowel sounds. Absent: distended, tenderness, guarding, rebound, rigid Extremities exam: Present: normal inspection, full ROM, normal capillary refill. Absent: tenderness, pedal edema, joint swelling, calf tenderness Back exam: Present: normal inspection Neurological exam: Present: alert, oriented X3, CN II-XII intact Psychiatric exam: Present: normal affect, normal mood Skin exam: Present: warm, dry, intact, normal color. Absent: rash Course Vital Signs 04/01/21 04/01/21 12:44 14:42 Temperature 98.8 F Pulse Rate 101 H 99 Respiratory 18 16 Rate Blood Pressure 136/87 123/83 O2 Sat by Pulse 97 Oximetry Medical Decision Making - Medical Decision Making Patient has cough and congestion. Covid test is negative. Chest x-ray shows possible pneumonia. I started him on antibiotics. He is stable for discharge. - Lab Data Lab Results 04/01/21 Range/Units 12:15 Coronavirus (PCR) Not Detected (Not Detectd) Disposition Clinical Impression: Bronchitis Disposition: HOME SELF-CARE Condition: Good Instructions (If sedation given, give patient instructions): Upper Respiratory Infection (ED) Prescriptions: Doxycycline Hyclate 100 mg PO Q12H 10 Days #20 tab Is patient prescribed a controlled substance at d/c from ED?: No Referrals: Robert Nuñez MD [Primary Care Provider] - 1-2 days
[2021-04-01 16:08] VITALS: BP 142/74; PULSE 78; RESP 20
== END 2021-04-01 16:07 | disposition home or self-care (01) ==
LOC: EC 09:42
DX: J40 Bronchitis, not specified as acute or chronic (principal); F17.200 Nicotine dependence, unspecified, uncomplicated; Z83.3 Family history of diabetes mellitus
CPT/HCPCS: 71046; 87635; 99284

== ENCOUNTER 2021-05-21 10:36 | Emergency (ER) | payer BC ==
[2021-05-21 10:59] VITALS: BP 129/83; PULSE 96; RESP 18; TEMP 97.9
[2021-05-21] MEDS ORDERED: ACETAMINOPHEN TAB 500 MG TAB PO STA (11:52)
--- NOTE | 2021-05-21 11:55 | ED ---
General Adult HPI - General Chief complaint: Upper Respiratory Infection Stated complaint: cough & headache Time Seen by Provider: 05/21/21 11:06 Source: patient, RN notes reviewed Mode of arrival: ambulatory Limitations: no limitations - History of Present Illness Initial comments: 45-year-old male presents to the emergency Department with complaints of cough and headache, onset Thursday. Patient states he was hanging out with his buddies over the weekend and is worried about possibly rox Covid. States he has a decreased appetite and increased fatigue. Did not take anything to treat his symptoms prior to arrival. No aggravating or alleviating factors. Patient denies fever, chills, chest pain, difficulty breathing, abdominal pain, nausea, vomiting, diarrhea, or dysuria. - Related Data Home Medications Medication Instructions Recorded Confirmed No Known Home Medications 05/21/21 05/21/21 Allergies Allergy/AdvReac Type Severity Reaction Status Date / Time lactose AdvReac Diarrhea Verified 05/21/21 13:08 Review of Systems ROS Statement: Those systems with pertinent positive or pertinent negative responses have been documented in the HPI. ROS Other: All systems not noted in ROS Statement are negative. Past Medical History Past Medical History: GERD/Reflux Additional Past Medical History / Comment(s): acid reflux with spicy food History of Any Multi-Drug Resistant Organisms: None Reported Past Surgical History: No Surgical Hx Reported Past Anesthesia/Blood Transfusion Reactions: No Reported Reaction Past Psychological History: Depression Smoking Status: Current every day smoker Past Alcohol Use History: Daily, Occasional Past Drug Use History: None Reported - Past Family History Father Family Medical History: Diabetes Mellitus Additional Family Medical History / Comment(s): Father had diabetes and it runs strongley in his family. Mother Additional Family Medical History / Comment(s): Mother has had bronchitis. General Exam Limitations: no limitations (Well-developed, well-nourished male in no acute distress. Initial temperature 97.9, pulse 96, respirations 18, blood pressure 129/83, pulse ox 96% on room air.) General appearance: alert, in no apparent distress Eye exam: Present: normal appearance, PERRL, EOMI. Absent: scleral icterus, conjunctival injection, periorbital swelling ENT exam: Present: normal exam, normal oropharynx, mucous membranes moist Respiratory exam: Present: normal lung sounds bilaterally. Absent: respiratory distress, wheezes, rales, rhonchi, stridor Cardiovascular Exam: Present: regular rate, normal rhythm, normal heart sounds. Absent: systolic murmur, diastolic murmur, rubs, gallop, clicks GI/Abdominal exam: Present: soft, normal bowel sounds. Absent: distended, tenderness, guarding, rebound, rigid Neurological exam: Present: alert, oriented X3, CN II-XII intact Psychiatric exam: Present: flat affect Skin exam: Present: warm, dry, intact, normal color. Absent: rash Course Vital Signs 05/21/21 05/21/21 10:56 13:25 Temperature 97.9 F Pulse Rate 96 Respiratory 18 18 Rate Blood Pressure 129/83 O2 Sat by Pulse 96 96 Oximetry Medical Decision Making - Medical Decision Making 45-year-old male with a history of COPD presents to the emergency department for evaluation of cough and headache. Patient states he is concerned about possible cold exposure. Upon exam, patient is well-appearing and in no acute distress. He is afebrile, not tachycardic or tachypneic. Pulse ox on room air is greater than 95%. Lung sounds are clear to auscultation. No evidence of increased work of breathing. Covid swab was negative. Patient to be discharged home to follow up with his PCP. Instructed to retest if symptoms persist in the next 2-3 days. Symptomatic treatment was discussed with patient. Since answered, she verbalizes understanding and agrees with this plan. This patient's care was discussed with the attending Dr. Valdivia. Patient was provided work note. - Lab Data Lab Results 05/21/21 Range/Units 12:09 Coronavirus (PCR) Not Detected (Not Detectd) Disposition Clinical Impression: Viral respiratory illness Disposition: HOME SELF-CARE Condition: Stable Instructions (If sedation given, give patient instructions): Upper Respiratory Infection (ED) Additional Instructions: Alternate tylenol and motrin as needed for fever and body aches. Consider retesting in 2-3 days if symptoms persist. Follow up with your PCP for a recheck. Return to the Emergency Department with any new, worsening, or concerning symptoms. Is patient prescribed a controlled substance at d/c from ED?: No Referrals: Robert Nuñez MD [Primary Care Provider] - 1-2 days
== END 2021-05-21 13:30 | disposition home or self-care (01) ==
LOC: EC 10:36
DX: B34.9 Viral infection, unspecified (principal); K21.9 Gastro-esophageal reflux disease without esophagitis; F32.A Depression, unspecified; F17.200 Nicotine dependence, unspecified, uncomplicated; Z20.822 Contact with and (suspected) exposure to COVID-19
CPT/HCPCS: 87635; 99284

== ENCOUNTER 2021-09-04 09:17 | Emergency (ER) | payer BC ==
[2021-09-04 09:27] VITALS: TEMP 98.9
[2021-09-04] MEDS ORDERED: DIPHENOX-ATROP 2.5-0.025 MG 1 EACH TAB PO STA (09:37)
[2021-09-04] MEDS ORDERED: SODIUM CHLORIDE 0.9% 1,000 ML IV STA (09:37)
--- NOTE | 2021-09-04 09:48 | ED ---
General Adult HPI - General Chief complaint: Nausea/Vomiting/Diarrhea Stated complaint: fatigue, diarrhea Time Seen by Provider: 09/04/21 09:25 Source: patient, RN notes reviewed, old records reviewed Mode of arrival: ambulatory Limitations: no limitations - History of Present Illness Initial comments: This is a 45-year-old male presents emergency Department complaining that he has had diarrhea for 2 days. Patient states she has a little abdominal cramping but no specific area of pain. Patient denies any fever chills or cough per patient denies any nausea vomiting per patient denies any chest pain difficulty breathing first breath. Patient denies anyone around his symptoms. Patient denies any recent antibiotic use. - Related Data Home Medications Medication Instructions Recorded Confirmed No Known Home Medications 05/21/21 05/21/21 Allergies Allergy/AdvReac Type Severity Reaction Status Date / Time lactose AdvReac Diarrhea Verified 09/04/21 09:23 Review of Systems ROS Statement: Those systems with pertinent positive or pertinent negative responses have been documented in the HPI. ROS Other: All systems not noted in ROS Statement are negative. Past Medical History Past Medical History: GERD/Reflux Additional Past Medical History / Comment(s): acid reflux with spicy food History of Any Multi-Drug Resistant Organisms: None Reported Past Surgical History: No Surgical Hx Reported Past Anesthesia/Blood Transfusion Reactions: No Reported Reaction Past Psychological History: No Psychological Hx Reported Smoking Status: Current every day smoker Past Alcohol Use History: Occasional Past Drug Use History: None Reported - Past Family History Father Family Medical History: Diabetes Mellitus Additional Family Medical History / Comment(s): Father had diabetes and it runs strongley in his family. Mother Additional Family Medical History / Comment(s): Mother has had bronchitis. General Exam - General Exam Comments Initial Comments: GENERAL: Patient is well-developed and well-nourished. Patient is nontoxic and well- hydrated and is in mild distress. ENT: Neck is soft and supple. No significant lymphadenopathy is noted. Oropharynx is clear. Moist mucous membranes. Neck has full range of motion without eliciting any pain. EYES: The sclera were anicteric and conjunctiva were pink and moist. Extraocular movements were intact and pupils were equal round and reactive to light. Eyelids were unremarkable. PULMONARY: Unlabored respirations. Good breath sounds bilaterally. No audible rales rhonchi or wheezing was noted. CARDIOVASCULAR: There is a regular rate and rhythm without any murmurs gallops or rubs. ABDOMEN: Soft and nontender with normal bowel sounds. SKIN: Skin is clear with no lesions or rashes and otherwise unremarkable. NEUROLOGIC: Patient is alert and oriented x3. Cranial nerves II through XII are grossly intact. Motor and sensory are also intact. Normal speech, volume and content. Symmetrical smile. MUSCULOSKELETAL: Normal extremities with adequate strength and full range of motion. No lower extremity swelling or edema. No calf tenderness. LYMPHATICS: No significant lymphadenopathy is noted PSYCHIATRIC: Normal psychiatric evaluation. Limitations: no limitations Course Vital Signs 09/04/21 09:23 Temperature 98.9 F Pulse Rate 110 H Respiratory 16 Rate Blood Pressure 131/87 O2 Sat by Pulse 95 Oximetry Medical Decision Making - Medical Decision Making Patient received [place] emergency department had no further diarrhea in the emergency room. Patient states he felt much better after he got some fluids and will go home and hydrate and take L[place]otil if he has anymore diarrhea. - Lab Data Result diagrams: 09/04/21 10:05 09/04/21 10:05 Lab Results 09/04/21 09/04/21 09/04/21 Range/Units 10:05 10:05 10:11 WBC 3.1 L (3.8-10.6) k/uL RBC 5.23 (4.30-5.90) m/uL Hgb 16.1 (13.0-17.5) gm/dL Hct 46.5 (39.0-53.0) % MCV 88.9 (80.0-100.0) fL MCH 30.7 (25.0-35.0) pg MCHC 34.6 (31.0-37.0) g/dL RDW 13.2 (11.5-15.5) % Plt Count 231 (150-450) k/uL MPV 7.1 Neutrophils % 68 % Lymphocytes % 15 % Monocytes % 12 % Eosinophils % 1 % Basophils % 0 % Neutrophils # 2.1 (1.3-7.7) k/uL Lymphocytes # 0.5 L (1.0-4.8) k/uL Monocytes # 0.4 (0-1.0) k/uL Eosinophils # 0.0 (0-0.7) k/uL Basophils # 0.0 (0-0.2) k/uL Sodium 133 L (137-145) mmol/L Potassium 3.8 (3.5-5.1) mmol/L Chloride 101 (98-107) mmol/L Carbon Dioxide 22 (22-30) mmol/L Anion Gap 10 mmol/L BUN 13 (9-20) mg/dL Creatinine 0.99 (0.66-1.25) mg/dL Est GFR (CKD-EPI)AfAm >90 (>60 ml/min/1.73 sqM) Est GFR (CKD-EPI)NonAf >90 (>60 ml/min/1.73 sqM) Glucose 179 H (74-99) mg/dL Calcium 8.7 (8.4-10.2) mg/dL Total Bilirubin 1.0 (0.2-1.3) mg/dL AST 45 (17-59) U/L ALT 37 (4-49) U/L Alkaline Phosphatase 83 (38-126) U/L Total Protein 7.6 (6.3-8.2) g/dL Albumin 4.3 (3.5-5.0) g/dL Amylase 40 (30-110) U/L Lipase 57 (23-300) U/L Urine Color Yellow Urine Appearance Clear (Clear) Urine pH 5.5 (5.0-8.0) Ur Specific [place] 1.018 (1.001-1.035) Urine Protein 1+ H (Negative) Urine Glucose (UA) Negative (Negative) Urine Ketones Negative (Negative) Urine Blood Negative (Negative) Urine Nitrite Negative (Negative) Urine Bilirubin Negative (Negative) Urine Urobilinogen <2.0 (<2.0) mg/dL Ur Leukocyte Esterase Negative (Negative) Urine RBC <1 (0-5) /hpf Urine WBC 1 (0-5) /hpf Urine Mucus Rare H (None) /hpf Disposition Clinical Impression: Acute diarrhea Disposition: HOME SELF-CARE Instructions (If sedation given, give patient instructions): Acute Diarrhea (ED) Is patient prescribed a controlled substance at d/c from ED?: No Referrals: Robert Nuñez MD [Primary Care Provider] - 1-2 days Time of Disposition: 11:04
[2021-09-04 10:29] LABS: Appearance,Urine Clear (Clear); Bilirubin,Urine Negative (Negative); Blood,Urine Negative (Negative); Color,Urine Yellow; Glucose,Urine (UA) Negative (Negative); Ketones,Urine Negative (Negative); Leukocyte Esterase,Urine Negative (Negative); Mucus,Urine Rare /hpf; Nitrite,Urine Negative (Negative); PH, Urine 5.5 (5.0-8.0); Protein,Urine 1+ (Negative); RBC,Urine <1 /hpf (0-5); Specific Gravity,Urine 1.018 (1.001-1.035); Urobilinogen,Urine <2.0 mg/dL (<2.0); WBC,Urine 1 /hpf (0-5)
[2021-09-04 10:32] LABS: ALT 37 U/L (4-49); AST 45 U/L (17-59); African American GFR (CKD) >90 (>60 ml/min/1.73 sqM); Albumin 4.3 g/dL (3.5-5.0); Alkaline Phosphatase 83 U/L (38-126); Amylase 40 U/L (30-110); Anion Gap 10 mmol/L; Blood Urea Nitrogen 13 mg/dL (9-20); Calcium 8.7 mg/dL (8.4-10.2); Carbon Dioxide 22 mmol/L (22-30); Chloride 101 mmol/L (98-107); Glucose 179 mg/dL (74-99); Lipase 57 U/L (23-300); Non-African American GFR(CKD) >90 (>60 ml/min/1.73 sqM); Potassium 3.8 mmol/L (3.5-5.1); Sodium 133 mmol/L (137-145); Total Protein 7.6 g/dL (6.3-8.2)
[2021-09-04 10:41] LABS: Basophils % (A) 0 %; Eosinophils % (A) 1 %; HCT 46.5 % (39.0-53.0); HGB 16.1 gm/dL (13.0-17.5); Lymphocytes # (A) 0.5 k/uL (1.0-4.8); Lymphocytes % (A) 15 %; MCH 30.7 pg (25.0-35.0); MCHC 34.6 g/dL (31.0-37.0); MCV 88.9 fL (80.0-100.0); Mean Platelet Volume 7.1; Monocytes # (A) 0.4 k/uL (0-1.0); Monocytes % (A) 12 %; Neutrophils # (A) 2.1 k/uL (1.3-7.7); Neutrophils % (A) 68 %; Platelet Count 231 k/uL (150-450); RBC 5.23 m/uL (4.30-5.90); RDW 13.2 % (11.5-15.5); WBC 3.1 k/uL (3.8-10.6)
[2021-09-04] MEDS ORDERED: DIPHENOX-ATROP STARTER PACK 8 TAB BTL PO STA (11:04)
[2021-09-04 11:22] VITALS: BP 123/82; PULSE 96; RESP 18
== END 2021-09-04 11:22 | disposition home or self-care (01) ==
LOC: EC 09:17
DX: R19.7 Diarrhea, unspecified (principal); K21.9 Gastro-esophageal reflux disease without esophagitis; F17.200 Nicotine dependence, unspecified, uncomplicated
CPT/HCPCS: 36415; 80053; 81001; 82150; 83690; 85025; 96360; 99284

== ENCOUNTER 2022-04-16 11:03 | Inpatient (IN) | payer BC ==
[2022-04-16 11:16] VITALS: RESP 18
[2022-04-16] MEDS ORDERED: SODIUM CHLORIDE 0.9% 1,000 ML IV ONE (11:37)
[2022-04-16] MEDS ORDERED: SODIUM CHLORIDE 0.9% 500 ML 500 ML IV ONE (11:37)
--- NOTE | 2022-04-16 11:55 | ED ---
General Adult HPI - General Chief complaint: Psychiatric Symptoms Stated complaint: petition Time Seen by Provider: 04/16/22 11:15 Source: patient, police, RN notes reviewed, old records reviewed Mode of arrival: ambulatory Limitations: no limitations - History of Present Illness Initial comments: This is a 46-year-old male who presents emergency Department in police custody. Patient told police he wanted to hang himself because he was sick of living. Patient states he was upset at that time but no longer wants to kill himself. Patient states he was drinking this morning. Patient states that he lost his father for years ago and that is Very depressed and more recently talked to his daughter out in [place] and she refuses to let him sign against to his grandchildren or have any contact with his grandchildren so that upset him so started drinking this morning he became very upset and got an argument with his girlfriend and then made statements that he wanted to kill himself and hang himself. Patient denies any drug use. Patient has had no physical complaints - Related Data Previous Rx's Medication Instructions Recorded Acetaminophen Tab [Tylenol] 650 mg PO Q4HR PRN tab 04/18/22 Atorvastatin [Lipitor] 10 mg PO DAILY 30 Days tab 04/18/22 Escitalopram [Lexapro] 5 mg PO DAILY 30 Days tab 04/18/22 Naltrexone HCl [Revia] 50 mg PO DAILY 30 Days tab 04/18/22 lisinopriL [Zestril] 10 mg PO DAILY 30 Days tab 04/18/22 metFORMIN HCL [Glucophage] 500 mg PO BID-W/MEALS 30 Days tab 04/18/22 Allergies Allergy/AdvReac Type Severity Reaction Status Date / Time lactose AdvReac Diarrhea Verified 04/16/22 13:15 Review of Systems ROS Statement: Those systems with pertinent positive or pertinent negative responses have been documented in the HPI. ROS Other: All systems not noted in ROS Statement are negative. Past Medical History Past Medical History: GERD/Reflux Additional Past Medical History / Comment(s): acid reflux with spicy food History of Any Multi-Drug Resistant Organisms: None Reported Past Surgical History: No Surgical Hx Reported Past Anesthesia/Blood Transfusion Reactions: No Reported Reaction Past Psychological History: No Psychological Hx Reported Smoking Status: Current every day smoker Past Alcohol Use History: Occasional Past Drug Use History: None Reported - Past Family History Father Family Medical History: Diabetes Mellitus Additional Family Medical History / Comment(s): Father had diabetes and it runs strongley in his family. Mother Additional Family Medical History / Comment(s): Mother has had bronchitis. General Exam - General Exam Comments Initial Comments: GENERAL: Patient is well-developed and well-nourished. Patient is nontoxic and well- hydrated and is in no acute distress. Patient is intoxicated. ENT: Neck is soft and supple. No significant lymphadenopathy is noted. Oropharynx is clear. Moist mucous membranes. Neck has full range of motion without eliciting any pain. EYES: The sclera were anicteric and conjunctiva were pink and moist. Extraocular movements were intact and pupils were equal round and reactive to light. Eyelids were unremarkable. PULMONARY: Unlabored respirations. Good breath sounds bilaterally. No audible rales rhonchi or wheezing was noted. CARDIOVASCULAR: There is a regular rate and rhythm without any murmurs gallops or rubs. ABDOMEN: Soft and nontender with normal bowel sounds. SKIN: Skin is clear with no lesions or rashes and otherwise unremarkable. NEUROLOGIC: Patient is alert and oriented x3. Cranial nerves II through XII are grossly intact. Motor and sensory are also intact. Normal speech, volume and content. Symmetrical smile. MUSCULOSKELETAL: Normal extremities with adequate strength and full range of motion. LYMPHATICS: No significant lymphadenopathy is noted PSYCHIATRIC: Patient is tearful throughout the interview. Patient states he is not suicidal at this time. He states earlier he was upset so he did make those remarks to the police officers. Limitations: no limitations Course Vital Signs 04/16/22 11:12 Temperature 98 F Pulse Rate 96 Respiratory 18 Rate Blood Pressure 133/92 O2 Sat by Pulse 96 Oximetry Medical Decision Making - Lab Data Result diagrams: 04/17/22 08:09 04/17/22 08:09 Lab Results 04/16/22 04/16/22 04/16/22 Range/Units 11:42 11:56 11:56 WBC 5.2 (3.8-10.6) k/uL RBC 4.76 (4.30-5.90) m/uL Hgb 14.7 (13.0-17.5) gm/dL Hct 40.8 (39.0-53.0) % MCV 85.7 (80.0-100.0) fL MCH 30.8 (25.0-35.0) pg MCHC 36.0 (31.0-37.0) g/dL RDW 12.6 (11.5-15.5) % Plt Count 207 (150-450) k/uL MPV 7.3 Neutrophils % 59 % Lymphocytes % 28 % Monocytes % 5 % Eosinophils % 2 % Basophils % 1 % Neutrophils # 3.1 (1.3-7.7) k/uL Lymphocytes # 1.5 (1.0-4.8) k/uL Monocytes # 0.3 (0-1.0) k/uL Eosinophils # 0.1 (0-0.7) k/uL Basophils # 0.1 (0-0.2) k/uL Sodium 139 (137-145) mmol/L Potassium 4.1 (3.5-5.1) mmol/L Chloride 106 (98-107) mmol/L Carbon Dioxide 19 L (22-30) mmol/L Anion Gap 14 mmol/L BUN 12 (9-20) mg/dL Creatinine 0.75 (0.66-1.25) mg/dL Est GFR (CKD-EPI)AfAm >90 (>60 ml/min/1.73 sqM) Est GFR (CKD-EPI)NonAf >90 (>60 ml/min/1.73 sqM) Glucose 228 H (74-99) mg/dL Calcium 8.8 (8.4-10.2) mg/dL Magnesium 2.5 H (1.6-2.3) mg/dL Total Bilirubin 0.6 (0.2-1.3) mg/dL AST 37 (17-59) U/L ALT 35 (4-49) U/L Alkaline Phosphatase 90 (38-126) U/L Total Protein 7.9 (6.3-8.2) g/dL Albumin 5.0 (3.5-5.0) g/dL Urine Opiates Screen Not Detected (NotDetected) Ur Oxycodone Screen Not Detected (NotDetected) Urine Methadone Screen Not Detected (NotDetected) Ur Propoxyphene Screen Not Detected (NotDetected) Ur Barbiturates Screen Not Detected (NotDetected) U Tricyclic Antidepress Not Detected (NotDetected) Ur Phencyclidine Scrn Not Detected (NotDetected) Ur Amphetamines Screen Not Detected (NotDetected) U Methamphetamines Scrn Not Detected (NotDetected) U Benzodiazepines Scrn Not Detected (NotDetected) Urine Cocaine Screen Not Detected (NotDetected) U Marijuana (THC) Screen Not Detected (NotDetected) Serum Alcohol 224 H* mg/dL Coronavirus (PCR) (Not Detectd) 04/16/22 Range/Units 21:36 WBC (3.8-10.6) k/uL RBC (4.30-5.90) m/uL Hgb (13.0-17.5) gm/dL Hct (39.0-53.0) % MCV (80.0-100.0) fL MCH (25.0-35.0) pg MCHC (31.0-37.0) g/dL RDW (11.5-15.5) % Plt Count (150-450) k/uL MPV Neutrophils % % Lymphocytes % % Monocytes % % Eosinophils % % Basophils % % Neutrophils # (1.3-7.7) k/uL Lymphocytes # (1.0-4.8) k/uL Monocytes # (0-1.0) k/uL Eosinophils # (0-0.7) k/uL Basophils # (0-0.2) k/uL Sodium (137-145) mmol/L Potassium (3.5-5.1) mmol/L Chloride (98-107) mmol/L Carbon Dioxide (22-30) mmol/L Anion Gap mmol/L BUN (9-20) mg/dL Creatinine (0.66-1.25) mg/dL Est GFR (CKD-EPI)AfAm (>60 ml/min/1.73 sqM) Est GFR (CKD-EPI)NonAf (>60 ml/min/1.73 sqM) Glucose (74-99) mg/dL Calcium (8.4-10.2) mg/dL Magnesium (1.6-2.3) mg/dL Total Bilirubin (0.2-1.3) mg/dL AST (17-59) U/L ALT (4-49) U/L Alkaline Phosphatase (38-126) U/L Total Protein (6.3-8.2) g/dL Albumin (3.5-5.0) g/dL Urine Opiates Screen (NotDetected) Ur Oxycodone Screen (NotDetected) Urine Methadone Screen (NotDetected) Ur Propoxyphene Screen (NotDetected) Ur Barbiturates Screen (NotDetected) U Tricyclic Antidepress (NotDetected) Ur Phencyclidine Scrn (NotDetected) Ur Amphetamines Screen (NotDetected) U Methamphetamines Scrn (NotDetected) U Benzodiazepines Scrn (NotDetected) Urine Cocaine Screen (NotDetected) U Marijuana (THC) Screen (NotDetected) Serum Alcohol mg/dL Coronavirus (PCR) Not Detected (Not Detectd) Disposition Clinical Impression: Depression, Suicidal ideation Disposition: ADMITTED IP TO THIS [facility] Condition: Stable
[2022-04-16 12:08] LABS: Basophils # (A) 0.1 k/uL (0-0.2); Basophils % (A) 1 %; Eosinophils # (A) 0.1 k/uL (0-0.7); Eosinophils % (A) 2 %; HCT 40.8 % (39.0-53.0); HGB 14.7 gm/dL (13.0-17.5); Lymphocytes # (A) 1.5 k/uL (1.0-4.8); Lymphocytes % (A) 28 %; MCH 30.8 pg (25.0-35.0); MCV 85.7 fL (80.0-100.0); Mean Platelet Volume 7.3; Monocytes # (A) 0.3 k/uL (0-1.0); Monocytes % (A) 5 %; Neutrophils # (A) 3.1 k/uL (1.3-7.7); Neutrophils % (A) 59 %; Platelet Count 207 k/uL (150-450); RBC 4.76 m/uL (4.30-5.90); RDW 12.6 % (11.5-15.5); WBC 5.2 k/uL (3.8-10.6)
[2022-04-16 12:24] LABS: ALT 35 U/L (4-49); AST 37 U/L (17-59); African American GFR (CKD) >90 (>60 ml/min/1.73 sqM); Alkaline Phosphatase 90 U/L (38-126); Anion Gap 14 mmol/L; Blood Urea Nitrogen 12 mg/dL (9-20); Calcium 8.8 mg/dL (8.4-10.2); Carbon Dioxide 19 mmol/L (22-30); Chloride 106 mmol/L (98-107); Glucose 228 mg/dL (74-99); Magnesium 2.5 mg/dL (1.6-2.3); Non-African American GFR(CKD) >90 (>60 ml/min/1.73 sqM); Potassium 4.1 mmol/L (3.5-5.1); Sodium 139 mmol/L (137-145); Total Bilirubin 0.6 mg/dL (0.2-1.3); Total Protein 7.9 g/dL (6.3-8.2)
[2022-04-16 12:30] LABS: Alcohol 224 mg/dL
[2022-04-16 12:31] LABS: Amphetamine Screen,Urine Not Detected (NotDetected); Barbiturate Screen,Urine Not Detected (NotDetected); Benzodiazepines Screen,Urine Not Detected (NotDetected); Cocaine Screen,Urine Not Detected (NotDetected); Methadone Screen, Urine Not Detected (NotDetected); Opiate Screen,Urine Not Detected (NotDetected); Oxycodone Screen, Urine Not Detected (NotDetected); Phencyclidine Screen,Urine Not Detected (NotDetected); Tricyclic Antidepressant,Urine Not Detected (NotDetected); Urn Cannabinoid Scrn Not Detected (NotDetected)
[2022-04-16] MEDS ORDERED: HALOPERIDOL LACTATE 5 MG/ML 1 ML VIAL IM PRN (22:51)
[2022-04-16] MEDS ORDERED: MAGNESIUM HYDROXIDE 2,400 MG/10 ML CUP PO PRN (22:51)
[2022-04-16] MEDS ORDERED: ACETAMINOPHEN TAB 325 MG TAB PO PRN (22:51)
[2022-04-16] MEDS ORDERED: haloperidoL 5 MG TAB PO PRN (22:51)
[2022-04-16] MEDS ORDERED: MAG HYDROX/AL HYDROX/SIMETH 355 ML BOTTLE PO PRN (22:51)
[2022-04-16] MEDS ORDERED: LORazepam 2 MG/ML INJ IM PRN (22:51)
[2022-04-16] MEDS ORDERED: LORazepam 1 MG TAB PO PRN (22:51)
[2022-04-17] MEDS ORDERED: NICOTINE 14MG/24HR PATCH TRANSDERM SCH (09:00)
[2022-04-17 09:08] LABS: ALT 35 U/L (4-49); AST 38 U/L (17-59); African American GFR (CKD) >90 (>60 ml/min/1.73 sqM); Albumin 4.9 g/dL (3.5-5.0); Alkaline Phosphatase 94 U/L (38-126); Anion Gap 10 mmol/L; Blood Urea Nitrogen 10 mg/dL (9-20); Calcium 9.1 mg/dL (8.4-10.2); Carbon Dioxide 25 mmol/L (22-30); Chloride 104 mmol/L (98-107); Glucose 157 mg/dL (74-99); Non-African American GFR(CKD) >90 (>60 ml/min/1.73 sqM); Potassium 4.6 mmol/L (3.5-5.1); Sodium 139 mmol/L (137-145); Total Protein 7.8 g/dL (6.3-8.2)
[2022-04-17 09:55] LABS: Basophils % (A) 1 %; Eosinophils # (A) 0.1 k/uL (0-0.7); Eosinophils % (A) 2 %; HCT 43.1 % (39.0-53.0); HGB 14.8 gm/dL (13.0-17.5); Lymphocytes # (A) 1.4 k/uL (1.0-4.8); Lymphocytes % (A) 27 %; MCH 30.4 pg (25.0-35.0); MCHC 34.4 g/dL (31.0-37.0); MCV 88.4 fL (80.0-100.0); Mean Platelet Volume 7.6; Monocytes # (A) 0.6 k/uL (0-1.0); Monocytes % (A) 11 %; Neutrophils % (A) 58 %; Platelet Count 243 k/uL (150-450); RBC 4.87 m/uL (4.30-5.90); RDW 12.4 % (11.5-15.5); WBC 5.2 k/uL (3.8-10.6)
[2022-04-17] MEDS ORDERED: LORazepam 1 MG TAB PO PRN (11:50)
--- NOTE | 2022-04-17 13:29 | P.HP ---
Psychiatric H&P - . H&P Date: 04/17/22 History & Physical: Allergies Allergy/AdvReac Type Severity Reaction Status Date / Time lactose AdvReac Diarrhea Verified 04/16/22 13:15 Vital Signs Temp 97.7 F 04/17/22 06:06 Pulse 108 H 04/17/22 06:06 Resp 18 04/17/22 06:06 BP 147/77 04/17/22 06:06 Pulse Ox 96 04/17/22 06:06 FiO2 Intake & Output 04/16/22 04/17/22 04/17/22 18:59 06:59 18:59 Weight 99.79 kg 96.615 kg Laboratory Last Values WBC 5.2 k/uL (3.8-10.6) 04/17/22 08:09 RBC 4.87 m/uL (4.30-5.90) 04/17/22 08:09 Hgb 14.8 gm/dL (13.0-17.5) 04/17/22 08:09 Hct 43.1 % (39.0-53.0) 04/17/22 08:09 MCV 88.4 fL (80.0-100.0) 04/17/22 08:09 MCH 30.4 pg (25.0-35.0) 04/17/22 08:09 MCHC 34.4 g/dL (31.0-37.0) 04/17/22 08:09 RDW 12.4 % (11.5-15.5) 04/17/22 08:09 Plt Count 243 k/uL (150-450) 04/17/22 08:09 MPV 7.6 04/17/22 08:09 Neutrophils % 58 % 04/17/22 08:09 Lymphocytes % 27 % 04/17/22 08:09 Monocytes % 11 % 04/17/22 08:09 Eosinophils % 2 % 04/17/22 08:09 Basophils % 1 % 04/17/22 08:09 Neutrophils # 3.0 k/uL (1.3-7.7) 04/17/22 08:09 Lymphocytes # 1.4 k/uL (1.0-4.8) 04/17/22 08:09 Monocytes # 0.6 k/uL (0-1.0) 04/17/22 08:09 Eosinophils # 0.1 k/uL (0-0.7) 04/17/22 08:09 Basophils # 0.0 k/uL (0-0.2) 04/17/22 08:09 Sodium 139 mmol/L (137-145) 04/17/22 08:09 Potassium 4.6 mmol/L (3.5-5.1) 04/17/22 08:09 Chloride 104 mmol/L (98-107) 04/17/22 08:09 Carbon Dioxide 25 mmol/L (22-30) 04/17/22 08:09 Anion Gap 10 mmol/L 04/17/22 08:09 BUN 10 mg/dL (9-20) 04/17/22 08:09 Creatinine 0.82 mg/dL (0.66-1.25) 04/17/22 08:09 Est GFR (CKD-EPI)AfAm >90 (>60 ml/min/1.73 sqM) 04/17/22 08:09 Est GFR (CKD-EPI)NonAf >90 (>60 ml/min/1.73 sqM) 04/17/22 08:09 Glucose 157 mg/dL (74-99) H 04/17/22 08:09 Calcium 9.1 mg/dL (8.4-10.2) 04/17/22 08:09 Magnesium 2.5 mg/dL (1.6-2.3) H 04/16/22 11:56 Total Bilirubin 1.0 mg/dL (0.2-1.3) 04/17/22 08:09 AST 38 U/L (17-59) 04/17/22 08:09 ALT 35 U/L (4-49) 04/17/22 08:09 Alkaline Phosphatase 94 U/L (38-126) 04/17/22 08:09 Total Protein 7.8 g/dL (6.3-8.2) 04/17/22 08:09 Albumin 4.9 g/dL (3.5-5.0) 04/17/22 08:09 TSH 0.885 mIU/L (0.465-4.680) 04/17/22 08:09 Urine Opiates Screen Not Detected (NotDetected) 04/16/22 11:42 Ur Oxycodone Screen Not Detected (NotDetected) 04/16/22 11:42 Urine Methadone Screen Not Detected (NotDetected) 04/16/22 11:42 Ur Propoxyphene Screen Not Detected (NotDetected) 04/16/22 11:42 Ur Barbiturates Screen Not Detected (NotDetected) 04/16/22 11:42 U Tricyclic Antidepress Not Detected (NotDetected) 04/16/22 11:42 Ur Phencyclidine Scrn Not Detected (NotDetected) 04/16/22 11:42 Ur Amphetamines Screen Not Detected (NotDetected) 04/16/22 11:42 U Methamphetamines Scrn Not Detected (NotDetected) 04/16/22 11:42 U Benzodiazepines Scrn Not Detected (NotDetected) 04/16/22 11:42 Urine Cocaine Screen Not Detected (NotDetected) 04/16/22 11:42 U Marijuana (THC) Screen Not Detected (NotDetected) 04/16/22 11:42 Serum Alcohol 224 mg/dL H* 04/16/22 11:56 Coronavirus (PCR) Not Detected (Not Detectd) 04/16/22 21:36 04/17/22 13:24 IDENTIFYING DATA: Patient is a 46-year-old -Mac[place] male, currently lives with his girlfriend, has 2 kids, he has 5 grandchildren, he works in a [employer] factory. HPI: Patient presented to the hospital yesterday after calling the police. According to ER report patient had stated to the police that he wanted to hang himself and that he was "sick of living". Report also states that patient was drinking heavily and apparently he had lost his father about 4 years ago and has been having issues with his daughter in [place] and was endorsing depression. Patient was admitted voluntarily to the mental health unit. Patient was seen wandering the hallways today and agreeable stridor. He claims that he "got off of work on Thursday" and claims that he went to the store to get beer. He claims that he is feeling "bored". He claims that he has recently been "bumping heads with my daughter". He states that they have been in several arguments and not speaking to each other. He claims that she has not been responding to him over social media which has been upsetting him as he wanted to see his grandkids over the holidays and send them gifts. He states that he has been feeling depressed and also claims that he "probably set of a lot of things" and claims that he also flipped out". He claims that he was drinking about 410 boys of beer yesterday and usually binge drinks on the weekends. He denies any withdrawal symptoms or any history of DTs or withdrawal seizures. He states that he does not have much anxiety at this time is fairly calm and cooperative. He claims that his sleep and appetite are fair.. Patient denies any suicidal or homicidal ideations intent or plan. At this time patient denies any auditory or visual hallucinations. Patient denies any flight of ideas racing thoughts and increased in goal directed behavior. Patient admits to using cigarettes daily and alcohol as noted above. PAST PSYCHIATRIC HISTORY: Patient states that she has a history of mild depression and also alcohol abuse. Patient denies being on any psychiatric medications. Patient denies any previous psychiatric hospitalizations. Patient denies any psychiatric outpatient follow-up. Patient denies any history of suicide attempts in the past. PMH: As per ER note ALLERGIES: as per EMR CHEMICAL DEPENDENCY HISTORY: as per HPI FAMILY PSYCHIATRIC/SUBSTANCE USE HISTORY: denies SOCIAL HISTORY: Patient was born and raised in [place]. He states that he completed up to 10th grade in school and return back for a GED. He states that he went to penitentiary for assault in 1997. He claims that he currently works for a [employer] business. He states that he has 2 kids, currently has a girlfriend. He has 5 grandkids MENTAL STATUS EXAM: General Appearance: Patient appears to be overweight, short in stature, stated age is alert, directable, and attempts to cooperate. Patient appears to have poor hygiene and grooming. Behavior: Patient is seated without any agitated behavior. Attempts to cooperate Speech: Patient's speech is fluent and nonpressured. Mood/Affect: Patient reports their mood is depressed at times, affect is congruent and constricted. Suicidality/Homicidality: Patient denies having any homicidal ideation intent or plan. Denies any suicidal ideations intent or plan Perceptions: Patient denies any visual hallucinations and denies any auditory hallucinations Though content/process: There is no evidence of any delusional thought content and thought process is linear and goal-directed. Memory and concentration: AOX3, grossly intact for the purposes of this session. Can spell "WORLD" backwards Judgment and insight: fair STRENGTHS/WEAKNESSES: strength is that patient is resilient. Weakness is that patient has poor judgment and is impulsive INTELLECT: average IMPRESSIONS: Depressive disorder unspecified Alcohol abuse Nicotine dependence PLAN: -Patient is admitted under voluntary status to MHU for stabilization of psychiatric symptoms and safety. Patient has signed adult voluntary form and medication consent and is placed in patient's chart. -Medications : Will start patient on Lexapro 5 mg daily for mood/anxiety, naltrexone 50 mg by mouth daily for alcohol cravings. -Ativan and Haldol PRN for agitation/aggression -Started thiamine, MVM for etoh use -CIWA protocol with Ativan PRN for ETOH withdrawal -Patient was counselled on substance abuse and desired to cut back on use -Patient was informed of the risks, benefits and side effects of the medication and patient verbally consented to taking the medications. Patient signed med consent form and was placed in chart. -Internal Medicine consult to perform medical evaluation and physical. -NRT - nicotine patch -SW on board for discharge planning. Encourage patient to participate in groups to work on coping skills. Patient claims that he does not want to go to rehab. 04/17/22 13:28
[2022-04-17] MEDS: NALTREXONE HCL 50 MG TAB PO SCH (13:52)
[2022-04-17] MEDS: ESCITALOPRAM 5 MG TAB PO SCH (13:52)
[2022-04-17 15:59] LABS: Chol/HDL Ratio 4.66 Ratio
--- NOTE | 2022-04-17 17:23 | P.HPIM ---
History of Present Illness H&P Date: 04/17/22 Gaston Aguayo, he is a 46-year-old male who presented to [facility] emergency room due to depression and suicidal ideation he was evaluated in the emergency room and was admitted to the psychiatry unit voluntarily, consultation was requested for medical management while hospitalized. Patient was seen once in our office 2 years ago, he did not follow up or have any lab test. On admission patient had mildly elevated glucose, elevated cholesterol and triglycerides, hemoglobin A1c was requested and was elevated at 8.1. Patient denies any past medical history, he smokes cigarettes, he drinks alcohol, he denies any illicit drug use. On review of systems, patient is alert and oriented 3 in no apparent distress he is pleasant he denies any complaints at this time there is no fever or chills no headache or dizziness no chest pain no shortness of breath no cough no nausea or vomiting no abdominal pain no diarrhea no blood in the stools no burning with urination no frequency or urgency and no hematuria, there is no weakness or numbness in any of the extremities there is no change in vision or speech or gait. Past Medical History Past Medical History: GERD/Reflux Additional Past Medical History / Comment(s): acid reflux with spicy food History of Any Multi-Drug Resistant Organisms: None Reported Past Surgical History: No Surgical Hx Reported Past Anesthesia/Blood Transfusion Reactions: No Reported Reaction Past Psychological History: No Psychological Hx Reported Smoking Status: Current every day smoker Past Alcohol Use History: Occasional Past Drug Use History: None Reported - Past Family History Father Family Medical History: Diabetes Mellitus Additional Family Medical History / Comment(s): Father had diabetes and it runs [place] in his family. Mother Additional Family Medical History / Comment(s): Mother has had bronchitis. Medications and Allergies Home Medications Medication Instructions Recorded Confirmed Type No Known Home Medications 05/21/21 04/16/22 History Allergies Allergy/AdvReac Type Severity Reaction Status Date / Time lactose AdvReac Diarrhea Verified 04/16/22 13:15 Physical Exam Vitals: Vital Signs Temp Pulse Resp BP Pulse Ox 04/17/22 06:06 97.7 F 108 H 18 147/77 96 04/16/22 23:33 98.3 F 95 18 142/84 99 Intake and Output 04/17/22 04/17/22 04/17/22 06:59 14:59 22:59 Other: Weight 96.615 kg In general patient is alert and oriented x 3 in no distress HEENT head normocephalic and atraumatic Neck is supple no JVD no goiter no lymphadenopathy no carotid bruit Chest examination is clear to auscultation no crackles no wheezing Cardiac exam reveals regular heart sounds S1 and S2 no gallops no murmurs Abdomen is soft nontender no organomegaly with normal bowel sounds Extremity exam reveals no edema no cyanosis or clubbing Neurological examination reveals no gross focal deficits Results CBC & Chem 7: 04/17/22 08:09 04/17/22 08:09 Labs: Abnormal Lab Results - Last 24 Hours (Table) 04/17/22 04/17/22 Range/Units 08:09 08:09 Glucose 157 H (74-99) mg/dL Hemoglobin A1c 8.1 H (0.0-6.0) % Triglycerides 456.00 H (0.00-149.00) mg/dL Cholesterol 242.00 H (0.00-200.00) mg/dL Assessment and Plan Plan: Depression with suicidal ideation, management as per primary psychiatry team Alcohol intoxication with early alcohol withdrawal Tobacco abuse New Diagnosis of diabetes mellitus type 2 New Diagnosis of hyperlipidemia Slightly elevated blood pressure At this time patient was seen and examined He does not take any home medications Will start patient on metformin, Crestor, and lisinopril He was counseled to quit smoking and quit drinking He was counseled to follow up in the outpatient setting
[2022-04-17] MEDS: metFORMIN 500 MG TAB PO SCH (18:47)
[2022-04-17] MEDS: ATORVASTATIN 10 MG TAB PO SCH (18:47)
[2022-04-18 05:12] VITALS: BP 143/90; PULSE 101; TEMP 97.8
[2022-04-18] MEDS: metFORMIN 500 MG TAB PO SCH (08:04)
[2022-04-18] MEDS: ATORVASTATIN 10 MG TAB PO SCH (08:04)
[2022-04-18] MEDS: ESCITALOPRAM 5 MG TAB PO SCH (08:04)
[2022-04-18] MEDS: NALTREXONE HCL 50 MG TAB PO SCH (08:04)
[2022-04-18] MEDS ORDERED: lisinopriL 10 MG TAB PO SCH (09:00)
--- NOTE | 2022-04-18 11:26 | P.DS ---
Providers Date of admission: 04/16/22 22:48 Expected date of discharge: 04/18/22 Attending physician: Joseluis Campbell MD Consults: 04/16/22 22:51 Consult Physician Routine Consulting Provider: Robert Nuñez Consult Reason/Comments: Medical H&P Do you want consulting provider notified?: Yes, Notify in am Primary care physician: Robert Nuñez - Discharge Diagnosis(es) (1) Depressive disorder Current Visit: Yes Status: Acute Priority: High (2) Alcohol abuse Current Visit: Yes Status: Acute Priority: High Hospital Course: Admission HPI: Admission note was completed by designer/writer "Patient is a 46-year-old - [place]er male, currently lives with his girlfriend, has 2 kids, he has 5 grandchildren, he works in a [employer] factory. Patient presented to the hospital yesterday after calling the police. According to ER report patient had stated to the police that he wanted to hang himself and that he was "sick of living". Report also states that patient was drinking heavily and apparently he had lost his father about 4 years ago and has been having issues with his daughter in [place] and was endorsing depression. Patient was admitted voluntarily to the mental health unit. Patient was seen wandering the hallways today and agreeable stridor. He claims that he "got off of work on Thursday" and claims that he went to the store to get beer. He claims that he is feeling "bored". He claims that he has recently been "bumping heads with my daughter". He states that they have been in several arguments and not speaking to each other. He claims that she has not been responding to him over social media which has been upsetting him as he wanted to see his grandkids over the holidays and send them gifts. He states that he has been feeling depressed and also claims that he "probably set of a lot of things" and claims that he also flipped out". He claims that he was drinking about 410 boys of beer yesterday and usually binge drinks on the weekends. He denies any withdrawal symptoms or any history of DTs or withdrawal seizures. He states that he does not have much anxiety at this time is fairly calm and cooperative. He claims that his sleep and appetite are fair.. Patient denies any suicidal or homicidal ideations intent or plan. At this time patient denies any auditory or visual hallucinations. Patient denies any flight of ideas racing thoughts and increased in goal directed behavior. Patient admits to using cigarettes daily and alcohol as noted above." Hospital course: Upon admission to the unit patient was directable and agreeable to commence treatment and signed adult voluntary form. Patient got along well with other patients on the unit and followed unit protocol. Patient was compliant with the medications and denied any side effects throughout hospital course. Patient was started on Lexapro 5 mg daily for mood/anxiety, naltrexone 50 mg by mouth daily for alcohol cravings. Patient spoke of his stressors and engaged in therapy damon th group and individual. Patient was also seen by medical team for history and physical exam. Patient's cholesterol and blood sugars, hemoglobin A1c were elevated and vision was placed on metformin, lisinpril and lipitor by hospitalist. Throughout the course of the hospitalization patient gradually improved with regards to mood, anxiety, sleep and became more future oriented with improved insight and judgment. On the day of discharge patient denied any suicidal or homicidal ideations intent or plan denied any auditory or visual hallucinations. Patient endorsed wanting to live for his grandkiShowpad, children and [employer]. The patient denied any access to guns or weapons. Patient denied any paranoia and did not endorse any delusions. Patient does have a significant history of substance abuse and was counseled on abstaining from all substances including alcohol and marijuana. Patient was offered however declined inpatient substance-abuse rehab. Patient was also counseled on the medications and need for regular compliance and was encouraged to follow-up with their outpatient appointment for mental health and also for primary care. Prior to discharge a family meeting will be arranged by social work coordinator to answer any questions and ensure safety upon discharge. Mental status exam: General Appearance: Patient appears to be overweight, stated age is alert, pleasant, and cooperative. Patient is in no acute distress and has improved hygiene and grooming Behavior: Patient is calmly seated without any agitated behavior. Speech: Patient's speech is fluent and nonpressured. Mood/Affect: Patient reports their mood is "better", affect is congruent and euthymic. Suicidality/Homicidality: Patient denies having any suicidal or homicidal ideation intent or plan. Perceptions: Patient denies any auditory or visual hallucinations. Though content/process: There is no evidence of any delusional thought content and thought process is linear and goal-directed. more future oriented Memory and concentration: AOX3, grossly intact for the purposes of this session. Can spell "WORLD" backwards correctly. Judgment and insight: improved with guarded prognosis Impression: Depressive disorder unspecified Alcohol abuse Nicotine dependence Plan: -Continue with discharge today as patient has improved and stabilized psychiatrically and is not currently an imminent threat to himself and/or others. Patient will remain at chronically elevated risk for harm to self and/or others due to his substance abuse. -Continue medications: Lexapro 5 mg daily for mood/anxiety, naltrexone 50 mg by mouth daily for etoh cravings. -Patient was counseled on the need for medication compliance and appropriate follow-up at mental health and also primary care for medical issues. Patient verbalized understanding and agreed. -Social work to arrange for and conduct family meeting to ensure safety upon discharge and answer any questions/concerns. Social work also to arrange for patients follow up appointments for psychiatric care along with follow up with primary care provider. -Patient counseled on abstaining from recreational drugs and marijuana and alcohol. Was informed/educated on the adverse effects on their physical and mental health. Patient verbally agreed and understood. Patient was offered substance abuse treatment however declined at this time. -Patient was instructed to return to the hospital or seek immediate medical care if their psychiatric or medical symptoms do worsen or reoccur. Allergies Allergy/AdvReac Type Severity Reaction Status Date / Time lactose AdvReac Diarrhea Verified 04/16/22 13:15 Laboratory Results WBC 5.2 k/uL (3.8-10.6) 04/17/22 08:09 RBC 4.87 m/uL (4.30-5.90) 04/17/22 08:09 Hgb 14.8 gm/dL (13.0-17.5) 04/17/22 08:09 Hct 43.1 % (39.0-53.0) 04/17/22 08:09 MCV 88.4 fL (80.0-100.0) 04/17/22 08:09 MCH 30.4 pg (25.0-35.0) 04/17/22 08:09 MCHC 34.4 g/dL (31.0-37.0) 04/17/22 08:09 RDW 12.4 % (11.5-15.5) 04/17/22 08:09 Plt Count 243 k/uL (150-450) 04/17/22 08:09 MPV 7.6 04/17/22 08:09 Neutrophils % 58 % 04/17/22 08:09 Lymphocytes % 27 % 04/17/22 08:09 Monocytes % 11 % 04/17/22 08:09 Eosinophils % 2 % 04/17/22 08:09 Basophils % 1 % 04/17/22 08:09 Neutrophils # 3.0 k/uL (1.3-7.7) 04/17/22 08:09 Lymphocytes # 1.4 k/uL (1.0-4.8) 04/17/22 08:09 Monocytes # 0.6 k/uL (0-1.0) 04/17/22 08:09 Eosinophils # 0.1 k/uL (0-0.7) 04/17/22 08:09 Basophils # 0.0 k/uL (0-0.2) 04/17/22 08:09 Sodium 139 mmol/L (137-145) 04/17/22 08:09 Potassium 4.6 mmol/L (3.5-5.1) 04/17/22 08:09 Chloride 104 mmol/L (98-107) 04/17/22 08:09 Carbon Dioxide 25 mmol/L (22-30) 04/17/22 08:09 Anion Gap 10 mmol/L 04/17/22 08:09 BUN 10 mg/dL (9-20) 04/17/22 08:09 Creatinine 0.82 mg/dL (0.66-1.25) 04/17/22 08:09 Est GFR (CKD-EPI)AfAm >90 (>60 ml/min/1.73 sqM) 04/17/22 08:09 Est GFR (CKD-EPI)NonAf >90 (>60 ml/min/1.73 sqM) 04/17/22 08:09 Glucose 157 mg/dL (74-99) H 04/17/22 08:[address] Glu mg/dL 185 04/17/22 08:09 Hemoglobin A1c 8.1 % (0.0-6.0) H 04/17/22 08:09 Calcium 9.1 mg/dL (8.4-10.2) 04/17/22 08:09 Magnesium 2.5 mg/dL (1.6-2.3) H 04/16/22 11:56 Total Bilirubin 1.0 mg/dL (0.2-1.3) 04/17/22 08:09 AST 38 U/L (17-59) 04/17/22 08:09 ALT 35 U/L (4-49) 04/17/22 08:09 Alkaline Phosphatase 94 U/L (38-126) 04/17/22 08:09 Total Protein 7.8 g/dL (6.3-8.2) 04/17/22 08:09 Albumin 4.9 g/dL (3.5-5.0) 04/17/22 08:09 Triglycerides 456.00 mg/dL (0.00-149.00) H 04/17/22 08:09 Cholesterol 242.00 mg/dL (0.00-200.00) H 04/17/22 08:09 LDL Cholesterol Direct 118.00 mg/dL (0.00-129.00) 04/17/22 08:09 LDL Cholesterol, Calc mg/dL (0.0-131.0) 04/17/22 08:09 VLDL Cholesterol, Calc mg/dL (5.00-40.00) 04/17/22 08:09 HDL Cholesterol 51.90 mg/dL (40.00-60.00) 04/17/22 08:09 Cholesterol/HDL Ratio 4.66 Ratio 04/17/22 08:09 TSH 0.885 mIU/L (0.465-4.680) 04/17/22 08:09 Urine Opiates Screen Not Detected (NotDetected) 04/16/22 11:42 Ur Oxycodone Screen Not Detected (NotDetected) 04/16/22 11:42 Urine Methadone Screen Not Detected (NotDetected) 04/16/22 11:42 Ur Propoxyphene Screen Not Detected (NotDetected) 04/16/22 11:42 Ur Barbiturates Screen Not Detected (NotDetected) 04/16/22 11:42 U Tricyclic Antidepress Not Detected (NotDetected) 04/16/22 11:42 Ur Phencyclidine Scrn Not Detected (NotDetected) 04/16/22 11:42 Ur Amphetamines Screen Not Detected (NotDetected) 04/16/22 11:42 U Methamphetamines Scrn Not Detected (NotDetected) 04/16/22 11:42 U Benzodiazepines Scrn Not Detected (NotDetected) 04/16/22 11:42 Urine Cocaine Screen Not Detected (NotDetected) 04/16/22 11:42 U Marijuana (THC) Screen Not Detected (NotDetected) 04/16/22 11:42 Serum Alcohol 224 mg/dL H* 04/16/22 11:56 Coronavirus (PCR) Not Detected (Not Detectd) 04/16/22 21:36 Vital Signs Temp 97.8 F 04/18/22 05:12 Pulse 101 H 04/18/22 05:12 Resp 18 04/18/22 05:12 BP 143/90 04/18/22 05:12 Pulse Ox 97 04/18/22 05:12 FiO2 Patient Condition at Discharge: Stable Plan - Discharge Summary Discharge Rx Participant: Yes New Discharge Prescriptions: New metFORMIN HCL [Glucophage] 500 mg PO BID-W/MEALS 30 Days tab Escitalopram [Lexapro] 5 mg PO DAILY 30 Days tab Atorvastatin [Lipitor] 10 mg PO DAILY 30 Days tab lisinopriL [Zestril] 10 mg PO DAILY 30 Days tab Naltrexone HCl [Revia] 50 mg PO DAILY 30 Days tab Acetaminophen Tab [Tylenol] 650 mg PO Q4HR PRN tab PRN Reason: Pain/Discomfort Discharge Medication List Acetaminophen Tab [Tylenol] 650 mg PO Q4HR PRN tab 04/18/22 [Rx] Atorvastatin [Lipitor] 10 mg PO DAILY 30 Days tab 04/18/22 [Rx] Escitalopram [Lexapro] 5 mg PO DAILY 30 Days tab 04/18/22 [Rx] Naltrexone HCl [Revia] 50 mg PO DAILY 30 Days tab 04/18/22 [Rx] lisinopriL [Zestril] 10 mg PO DAILY 30 Days tab 04/18/22 [Rx] metFORMIN HCL [Glucophage] 500 mg PO BID-W/MEALS 30 Days tab 04/18/22 [Rx] Follow up Appointment(s)/Referral(s): Robert Nuñez MD [Primary Care Provider] - 1-2 days Patient Instructions/Handouts: How to Stop Smoking (DC), Depression (DC), Alcohol Intoxication (DC) Activity/Diet/Wound Care/Special Instructions: Avoid the use of street drugs and alcohol. Take all prescriptions as prescribed. When you are in need of refills on your medications, please contact your medical provider and/or outpatient psychiatrist to have this done. Please go to scheduled outpatient appointment for aftercare treatment. If symptoms return or become worse, call the crisis line at and/or go to the nearest emergency room for evaluation Discharge Disposition: HOME SELF-CARE
== END 2022-04-18 12:50 | disposition home or self-care (01) | DRG 881 ==
LOC: EC 11:03 → 3MHU 22:48
PROVIDERS: ADMIT Psychiatry & Neurology Psychiatry; ATTEND Psychiatry & Neurology Psychiatry
PROC: HZ2ZZZZ Detoxification Services for Substance Abuse Treatment (ICD-10-PCS; principal; 2022-04-16)
DX: F32.9 Major depressive disorder, single episode, unspecified (principal); F10.239 Alcohol dependence with withdrawal, unspecified; R45.851 Suicidal ideations; Z20.822 Contact with and (suspected) exposure to COVID-19; F10.229 Alcohol dependence with intoxication, unspecified; F41.9 Anxiety disorder, unspecified; Z79.899 Other long term (current) drug therapy; E73.9 Lactose intolerance, unspecified; K21.9 Gastro-esophageal reflux disease without esophagitis; E78.5 Hyperlipidemia, unspecified; F17.210 Nicotine dependence, cigarettes, uncomplicated; R03.0 Elevated blood-pressure reading, without diagnosis of hypertension; E11.9 Type 2 diabetes mellitus without complications; Z71.6 Tobacco abuse counseling; Z71.41 Alcohol abuse counseling and surveillance of alcoholic; Z79.84 Long term (current) use of oral hypoglycemic drugs; Y90.8 Blood alcohol level of 240 mg/100 ml or more
CPT/HCPCS: 36415; 80053; 80061; 80306; 80320; 82075; 83036; 83721; 83735; 84443; 85025; 87635; 96360; 99285

== ENCOUNTER 2022-04-26 07:26 | Emergency (ER) | payer BC ==
[2022-04-26 07:35] VITALS: RESP 18; TEMP 98
[2022-04-26] MEDS ORDERED: AMPICILLIN-SULBACTAM 3 GM in SODIUM CHLORIDE 0.9% 100 ML IVPB STA (07:44)
--- NOTE | 2022-04-26 07:49 | ED ---
General Adult HPI - General Chief complaint: Dental/Oral Stated complaint: Tooth/Jaw pain Time Seen by Provider: 04/26/22 07:37 Source: patient, RN notes reviewed Mode of arrival: ambulatory Limitations: no limitations - History of Present Illness Initial comments: Patient is a pleasant 46-year-old male presenting to the emergency department with concerns with swelling. Patient had tooth discomfort while chewing food a couple days ago. Since that time patient has had slowly progressive swelling on that right side. Patient states it does hurt to fully open his mouth. No dyspnea. Patient states it does hurt to swallow however is able to. No fever. Discomfort is somewhat mild. Patient did take Motrin yesterday. Patient does not feel that he needs any pain medication at this time. - Related Data Previous Rx's Medication Instructions Recorded Acetaminophen Tab [Tylenol] 650 mg PO Q4HR PRN tab 04/18/22 Atorvastatin [Lipitor] 10 mg PO DAILY 30 Days tab 04/18/22 Escitalopram [Lexapro] 5 mg PO DAILY 30 Days tab 04/18/22 Naltrexone HCl [Revia] 50 mg PO DAILY 30 Days tab 04/18/22 lisinopriL [Zestril] 10 mg PO DAILY 30 Days tab 04/18/22 metFORMIN HCL [Glucophage] 500 mg PO BID-W/MEALS 30 Days tab 04/18/22 Allergies Allergy/AdvReac Type Severity Reaction Status Date / Time lactose AdvReac Diarrhea Verified 04/26/22 07:35 Review of Systems ROS Statement: Those systems with pertinent positive or pertinent negative responses have been documented in the HPI. ROS Other: All systems not noted in ROS Statement are negative. Constitutional: Denies: fever Eyes: Denies: eye pain ENT: Reports: as per HPI Respiratory: Denies: cough Cardiovascular: Denies: chest pain Endocrine: Denies: fatigue Gastrointestinal: Denies: abdominal pain Genitourinary: Denies: dysuria Musculoskeletal: Denies: back pain Skin: Denies: rash Neurological: Denies: weakness Past Medical History Past Medical History: GERD/Reflux Additional Past Medical History / Comment(s): acid reflux with spicy food History of Any Multi-Drug Resistant Organisms: None Reported Past Surgical History: No Surgical Hx Reported Past Anesthesia/Blood Transfusion Reactions: No Reported Reaction Past Psychological History: No Psychological Hx Reported Smoking Status: Current every day smoker Past Alcohol Use History: Occasional Past Drug Use History: None Reported - Past Family History Father Family Medical History: Diabetes Mellitus Additional Family Medical History / Comment(s): Father had diabetes and it runs strongley in his family. Mother Additional Family Medical History / Comment(s): Mother has had bronchitis. General Exam Limitations: no limitations General appearance: alert, in no apparent distress Head exam: Present: normocephalic Eye exam: Present: normal appearance ENT exam: Present: other (Right lower molar with mild dental decay. Right submandibular swelling and tenderness. Patient is able to open mouth approximately 80% of anticipated normal. No posterior pharynx swelling or erythema. No visible drainable abscess near the dentition or gumline.) Neck exam: Present: other (Right submandibular swelling) Respiratory exam: Present: normal lung sounds bilaterally Cardiovascular Exam: Present: regular rate, normal rhythm GI/Abdominal exam: Present: soft. Absent: tenderness Neurological exam: Present: alert Psychiatric exam: Present: normal affect, normal mood Skin exam: Present: normal color Course Vital Signs 04/26/22 07:32 Temperature 98 F Pulse Rate 98 Respiratory 18 Rate Blood Pressure 130/85 O2 Sat by Pulse 100 Oximetry Medical Decision Making - Medical Decision Making Patient reevaluated and updated - Lab Data Result diagrams: 04/26/22 08:02 04/26/22 08:02 Lab Results 04/26/22 04/26/22 04/26/22 Range/Units 08:02 08:02 08:02 WBC 7.4 (3.8-10.6) k/uL RBC 4.52 (4.30-5.90) m/uL Hgb 13.9 (13.0-17.5) gm/dL Hct 39.0 (39.0-53.0) % MCV 86.3 (80.0-100.0) fL MCH 30.7 (25.0-35.0) pg MCHC 35.6 (31.0-37.0) g/dL RDW 12.2 (11.5-15.5) % Plt Count 280 (150-450) k/uL MPV 7.2 Neutrophils % 76 % Lymphocytes % 12 % Monocytes % 7 % Eosinophils % 3 % Basophils % 1 % Neutrophils # 5.6 (1.3-7.7) k/uL Lymphocytes # 0.9 L (1.0-4.8) k/uL Monocytes # 0.5 (0-1.0) k/uL Eosinophils # 0.2 (0-0.7) k/uL Basophils # 0.1 (0-0.2) k/uL PT 9.9 (9.0-12.0) sec INR 0.9 (<1.2) APTT 23.6 (22.0-30.0) sec Sodium 137 (137-145) mmol/L Potassium 4.4 (3.5-5.1) mmol/L Chloride 102 (98-107) mmol/L Carbon Dioxide 25 (22-30) mmol/L Anion Gap 10 mmol/L BUN 10 (9-20) mg/dL Creatinine 0.71 (0.66-1.25) mg/dL Est GFR (CKD-EPI)AfAm >90 (>60 ml/min/1.73 sqM) Est GFR (CKD-EPI)NonAf >90 (>60 ml/min/1.73 sqM) Glucose 216 H (74-99) mg/dL Calcium 8.9 (8.4-10.2) mg/dL Total Bilirubin 1.0 (0.2-1.3) mg/dL AST 29 (17-59) U/L ALT 28 (4-49) U/L Alkaline Phosphatase 74 (38-126) U/L Total Protein 7.3 (6.3-8.2) g/dL Albumin 4.4 (3.5-5.0) g/dL - Radiology Data Radiology results: report reviewed (Computed tomography scan concerning for Sialoadenitis) Disposition Clinical Impression: Sialoadenitis Disposition: HOME SELF-CARE Condition: Stable Instructions (If sedation given, give patient instructions): Sialoadenitis (ED) Additional Instructions: Please do follow-up with primary care physician in the next day or 2 for recheck. Please use sour lozenges, lemon juice or lemon heads or similar to stimulate saliva. Return for fever, increased pain or swelling, redness or warmth, worsening symptoms or any other concerns. Is patient prescribed a controlled substance at d/c from ED?: No Referrals: Robert Nuñez MD [Primary Care Provider] - 1-2 days Time of Disposition: 10:26
[2022-04-26] MEDS ORDERED: MORPHINE SULFATE 4 MG/ML SYRINGE IVP STA (08:14)
[2022-04-26 08:38] LABS: Basophils # (A) 0.1 k/uL (0-0.2); Basophils % (A) 1 %; Eosinophils # (A) 0.2 k/uL (0-0.7); Eosinophils % (A) 3 %; HGB 13.9 gm/dL (13.0-17.5); Lymphocytes # (A) 0.9 k/uL (1.0-4.8); Lymphocytes % (A) 12 %; MCH 30.7 pg (25.0-35.0); MCHC 35.6 g/dL (31.0-37.0); MCV 86.3 fL (80.0-100.0); Mean Platelet Volume 7.2; Monocytes # (A) 0.5 k/uL (0-1.0); Monocytes % (A) 7 %; Neutrophils # (A) 5.6 k/uL (1.3-7.7); Neutrophils % (A) 76 %; Platelet Count 280 k/uL (150-450); RBC 4.52 m/uL (4.30-5.90); RDW 12.2 % (11.5-15.5); WBC 7.4 k/uL (3.8-10.6)
[2022-04-26 09:11] LABS: ALT 28 U/L (4-49); AST 29 U/L (17-59); African American GFR (CKD) >90 (>60 ml/min/1.73 sqM); Albumin 4.4 g/dL (3.5-5.0); Alkaline Phosphatase 74 U/L (38-126); Anion Gap 10 mmol/L; Blood Urea Nitrogen 10 mg/dL (9-20); Calcium 8.9 mg/dL (8.4-10.2); Carbon Dioxide 25 mmol/L (22-30); Chloride 102 mmol/L (98-107); Glucose 216 mg/dL (74-99); Non-African American GFR(CKD) >90 (>60 ml/min/1.73 sqM); Potassium 4.4 mmol/L (3.5-5.1); Sodium 137 mmol/L (137-145); Total Protein 7.3 g/dL (6.3-8.2)
--- NOTE | 2022-04-26 09:55 | CT ---
EXAMINATION TYPE: CT soft tissue neck w con DATE OF EXAM: 04/26/2022 COMPARISON: None HISTORY: RIGHT FACIAL PAIN CT DLP: 478 mGycm CONTRAST: CT scan of the neck is performed with IV Contrast, patient injected with 100 mL of Isovue 300. Contrast enhanced CT of the neck was performed from the skull base through the lung apices. AIRWAY: The supraglottic, glottic, and subglottic portions of the airway appear patent and free of mass. SALIVARY GLANDS: There Is edema about the right submandibular gland with a couple of prominent lymph nodes. The findings may be on the basis of sialoadenitis. The parotid glands are free of mass or infl ammatory process. THYROID GLAND: No nodules or masses seen. LYMPH NODES: No adenopathy seen greater than 1cm. LUNG APICES: No nodule or mass is seen. OTHER: Vascular structures are patent. No significant degenerative change of the cervical spine. N o abscess seen. IMPRESSION: There Is edema about the right submandibular gland with a couple of mildly prominent lymph nodes. The findings may be on the basis of sialoadenitis.
[2022-04-26 09:56] LABS: INR 0.9 (<1.2); Partial Thromboplastin Time 23.6 sec (22.0-30.0); Prothrombin Time 9.9 sec (9.0-12.0)
[2022-04-26 10:53] VITALS: BP 126/78; PULSE 90
== END 2022-04-26 10:53 | disposition home or self-care (01) ==
LOC: EC 07:26
DX: K11.20 Sialoadenitis, unspecified (principal); F17.200 Nicotine dependence, unspecified, uncomplicated; Z91.011 Allergy to milk products
CPT/HCPCS: 36415; 80053; 85025; 85610; 85730; 87040; 70491; 99283; 96365; 96375; J2270; J0295; Q9967

== ENCOUNTER 2022-07-23 03:31 | Emergency (ER) | payer BC ==
[2022-07-23 03:37] VITALS: BP 132/86; PULSE 75; RESP 18; TEMP 98.6
[2022-07-23] MEDS ORDERED: KETOROLAC 15 MG/ML 1 ML VIAL IM STA (04:52)
--- NOTE | 2022-07-23 05:13 | XR ---
EXAMINATION TYPE: XR humerus RT DATE OF EXAM: 07/23/2022 COMPARISON: NONE HISTORY: Shoulder pain TECHNIQUE: 4 views FINDINGS: Shoulder joint and elbow joint appear intact. I see no fracture or dislocation. Right upper ribs appear intact. Radial head is intact. IMPRESSION: Negative right humerus exam. No fracture.
--- NOTE | 2022-07-23 05:14 | XR ---
EXAMINATION TYPE: XR shoulder complete RT DATE OF EXAM: 07/23/2022 COMPARISON: NONE HISTORY: Pain TECHNIQUE: 3 views FINDINGS: There is no evidence of fracture nor dislocation. Glenohumeral joint is intact. No patholog ic calcification. AC joint is intact. IMPRESSION: Negative right shoulder exam.
--- NOTE | 2022-07-23 06:08 | ED ---
Extremity Problem HPI - General Chief complaint: Extremity Problem,Nontraumatic Stated complaint: Right Shoulder Pain Time Seen by Provider: 07/23/22 03:40 Source: patient Mode of arrival: ambulatory Limitations: no limitations - History of Present Illness Initial comments: 46-year-old male presents to the emergency room reporting right shoulder pain. States that he has had shoulder pain for 4 weeks. It began after he sustained a fall at work and landed on an outstretched right arm. States that he did have pain however it has been progressively getting worse. Does has limited range of motion. He is right-hand dominant. Denies any numbness, tingling or weakness in his extremity. No wrist or elbow pain. Has not had any previous evaluation since the fall. He has been taking Tylenol with some improvement in his pain. No other alleviating, precipitating or modifying factors - Related Data Previous Rx's Medication Instructions Recorded Acetaminophen Tab [Tylenol] 650 mg PO Q4HR PRN tab 04/18/22 Atorvastatin [Lipitor] 10 mg PO DAILY 30 Days tab 04/18/22 Escitalopram [Lexapro] 5 mg PO DAILY 30 Days tab 04/18/22 Naltrexone HCl [Revia] 50 mg PO DAILY 30 Days tab 04/18/22 lisinopriL [Zestril] 10 mg PO DAILY 30 Days tab 04/18/22 metFORMIN HCL [Glucophage] 500 mg PO BID-W/MEALS 30 Days tab 04/18/22 Ibuprofen [Motrin] 600 mg PO Q8HR PRN #30 tab 07/23/22 Allergies Allergy/AdvReac Type Severity Reaction Status Date / Time lactose AdvReac Diarrhea Verified 07/23/22 03:34 Review of Systems ROS Statement: Those systems with pertinent positive or pertinent negative responses have been documented in the HPI. ROS Other: All systems not noted in ROS Statement are negative. Past Medical History Past Medical History: GERD/Reflux Additional Past Medical History / Comment(s): acid reflux with spicy food History of Any Multi-Drug Resistant Organisms: None Reported Past Surgical History: No Surgical Hx Reported Past Anesthesia/Blood Transfusion Reactions: No Reported Reaction Past Psychological History: No Psychological Hx Reported Smoking Status: Current every day smoker Past Alcohol Use History: Occasional Past Drug Use History: None Reported - Past Family History Father Family Medical History: Diabetes Mellitus Additional Family Medical History / Comment(s): Father had diabetes and it runs strongley in his family. Mother Additional Family Medical History / Comment(s): Mother has had bronchitis. General Exam Limitations: no limitations General appearance: alert, in no apparent distress Head exam: Present: atraumatic, normocephalic, normal inspection Neck exam: Present: normal inspection. Absent: tenderness, meningismus, lymphadenopathy Extremities exam: Present: other (tenderness right shoulder joint. limited flexion above 90 degrees. intact sensation over the bilateral upper extremities. 2+ radial and ulnar pulses. equal project manager/team coach strength) Course Vital Signs 07/23/22 03:34 Temperature 98.6 F Pulse Rate 75 Respiratory 18 Rate Blood Pressure 132/86 O2 Sat by Pulse 98 Oximetry Medical Decision Making - Medical Decision Making Was pt. sent in by a medical professional or institution (GUSTAVO Garcia, TOW TRUCK DISPATCHER, urgent care, hospital, or senior care...) When possible be specific @ -No Did you speak to anyone other than the patient for history (EMS, parent, family, police, friend...)? What history was obtained from this source @ -No Did you review nursing and triage notes (agree or disagree)? Why? @ -I reviewed and agree with nursing and triage notes Were old charts reviewed (outside hosp., previous admission, EMS record, old EKG, old radiological studies, urgent care reports/EKG's, senior care records)? Report findings @ -No old charts were reviewed Differential Diagnosis (chest pain, altered mental status, abdominal pain women, abdominal pain men, vaginal bleeding, weakness, fever, dyspnea, syncope, headache, dizziness, GI bleed, back pain, seizure, CVA, palpatations, mental health, musculoskeletal)? @ -strain, sprain, fracture, rotator cuff injury, cervical radiculopathy EKG interpreted by me (3pts min.). @ -Not done X-rays interpreted by me (1pt min.). @ -Yes CT interpreted by me (1pt min.). @ -None done U/S interpreted by me (1pt. min.). @ -None done What testing was considered but not performed or refused? (CT, X-rays, U/S, labs)? Why? @ -None What meds were considered but not given or refused? Why? @ -None Did you discuss the management of the patient with other professionals (professionals i.e. Dr., PA, TOW TRUCK DISPATCHER, lab, RT, psych nurse, social insurance administrator, flower grower, teacher, loans officer, family independence case manager)? Give summary @ -No Was smoking cessation discussed for >3mins.? @ -No Was critical care preformed (if so, how long)? @ -No Were there social determinants of health that impacted care today? How? (Homelessness, low income, unemployed, alcoholism, drug addiction, transportation, low edu. Level, literacy, decrease access to med. care, [facility], rehab)? @ -No Was there de-escalation of care discussed even if they declined (Discuss DNR or withdrawal of care, Hospice)? DNR status @ -No What co-morbidities impacted this encounter? (DM, HTN, Smoking, COPD, CAD, Cancer, CVA, ARF, Chemo, Hep., AIDS, mental health diagnosis, sleep apnea, morbid obesity)? @ -None Was patient admitted / discharged? Hospital course, mention meds given and route, prescriptions, significant lab abnormalities, going to OR and other pertinent info. @ -Upon arrival patient was placed into room 4. Thorough history and physical exam was performed. Patient sent for x-rays of the right shoulder and humerus. No acute fractures. He was given Toradol for pain and reports improvement in his symptoms. He does have better range of motion. I did discuss the diagnosis, differential and treatment options. There is concern for rotator cuff injury on the right. Patient will be placed in sling. He is given orthopedic follow-up. Instructed to call and make an appointment as he may need further imaging. Patient is given a prescription for Motrin 600 mg. He is to take the medications as directed and return for any new or worsening symptoms. Patient agreeable to the treatment plan and was discharged home in stable condition Undiagnosed new problem with uncertain prognosis? @ -Yes Drug Therapy requiring intensive monitoring for toxicity (Heparin, Nitro, Insulin, Cardizem)? @ -No Were any procedures done? @ -No Diagnosis/symptom? @ -acute right shoulder pain, possible rotator cuff injury, s/p fall Acute, or Chronic, or Acute on Chronic? @ -subacute Uncomplicated (without systemic symptoms) or Complicated (systemic symptoms)? @ -uncomplicated Side effects of treatment? @ -Allergic reaction Exacerbation, Progression, or Severe Exacerbation? @ -No Poses a threat to life or bodily function? How? (Chest pain, [place], [place], pneumonia, PE, COPD, DKA, ARF, appy, cholecystitis, CVA, Diverticulitis, Homicidal, Suicidal, threat to staff... and all critical care pts) @ -No Disposition Clinical Impression: Shoulder pain, Fall Disposition: HOME SELF-CARE Condition: Stable Instructions (If sedation given, give patient instructions): Shoulder Pain (ED) Additional Instructions: Please follow-up with orthopedic office. You may need and MRI. Take the Motrin alternating with Tylenol every 4 hours and return for any new or worsening symptoms Prescriptions: Ibuprofen [Motrin] 600 mg PO Q8HR PRN #30 tab PRN Reason: Pain Is patient prescribed a controlled substance at d/c from ED?: No Referrals: Robert Nuñez MD [Primary Care Provider] - 1-2 days Guy Dash MD [STAFF PHYSICIAN] - 1-2 days Time of Disposition: 06:08
== END 2022-07-23 06:16 | disposition home or self-care (01) ==
LOC: EC 03:31
DX: M25.511 Pain in right shoulder (principal); K21.9 Gastro-esophageal reflux disease without esophagitis; F17.200 Nicotine dependence, unspecified, uncomplicated; Z91.011 Allergy to milk products; Z79.899 Other long term (current) drug therapy; W19.XXXA Unspecified fall, initial encounter; Y99.0 Civilian activity done for income or pay
CPT/HCPCS: 99283 ×2; 96374; 73030; 73060; 96372; J1885

== ENCOUNTER 2023-06-13 21:43 | Emergency (ER) | payer SELFPAY ==
[2023-06-13 21:57] VITALS: TEMP 97.1
--- NOTE | 2023-06-13 22:12 | ED ---
General Adult HPI - General Chief complaint: Alcohol Stated complaint: ETOH, Head injury Time Seen by Provider: 06/13/23 21:57 Source: patient, EMS, RN notes reviewed, old records reviewed Mode of arrival: EMS Limitations: altered mental status - History of Present Illness Initial comments: 47-year-old male presenting with facial trauma, alcohol intoxication. History quite limited at the time of initial assessment. The patient is clinically intoxicated with external signs of trauma around the left eye. The exact circumstances of injury are not known. Paramedics report that he fell into a tree. - Related Data Previous Rx's Medication Instructions Recorded Acetaminophen Tab [Tylenol] 650 mg PO Q4HR PRN tab 04/18/22 Atorvastatin [Lipitor] 10 mg PO DAILY 30 Days tab 04/18/22 Escitalopram [Lexapro] 5 mg PO DAILY 30 Days tab 04/18/22 Naltrexone HCl [Revia] 50 mg PO DAILY 30 Days tab 04/18/22 lisinopriL [Zestril] 10 mg PO DAILY 30 Days tab 04/18/22 metFORMIN HCL [Glucophage] 500 mg PO BID-W/MEALS 30 Days tab 04/18/22 Ibuprofen [Motrin] 600 mg PO Q8HR PRN #30 tab 07/23/22 Cyclobenzaprine [Flexeril] 10 mg PO TID PRN #12 tablet 02/09/23 Ibuprofen [Motrin] 600 mg PO Q6HR PRN #20 tab 02/09/23 predniSONE [Deltasone] 20 mg PO BID #10 tab 02/09/23 Allergies Allergy/AdvReac Type Severity Reaction Status Date / Time lactose AdvReac Diarrhea Verified 06/13/23 21:55 Review of Systems ROS Statement: Those systems with pertinent positive or pertinent negative responses have been documented in the HPI. ROS Other: All systems not noted in ROS Statement are negative. Past Medical History Past Medical History: GERD/Reflux Additional Past Medical History / Comment(s): acid reflux with spicy food History of Any Multi-Drug Resistant Organisms: None Reported Past Surgical History: No Surgical Hx Reported Past Anesthesia/Blood Transfusion Reactions: No Reported Reaction Past Psychological History: No Psychological Hx Reported Smoking Status: Current every day smoker Past Alcohol Use History: Occasional Past Drug Use History: None Reported - Past Family History Father Family Medical History: Diabetes Mellitus Additional Family Medical History / Comment(s): Father had diabetes and it runs strongley in his family. Mother Additional Family Medical History / Comment(s): Mother has had bronchitis. General Exam Limitations: no limitations General appearance: in no apparent distress, lethargic Head exam: Present: normocephalic Eye exam: Present: PERRL, EOMI, other (Left periorbital hematoma, some con junctival hemorrhage) Respiratory exam: Present: normal lung sounds bilaterally. Absent: respiratory distress Cardiovascular Exam: Present: regular rate, normal rhythm GI/Abdominal exam: Present: soft. Absent: distended, tenderness, guarding Extremities exam: Present: normal inspection, normal capillary refill Neurological exam: Present: alert. Absent: oriented X3 Skin exam: Present: warm, dry, intact. Absent: cyanosis, diaphoretic Course Vital Signs 06/13/23 21:45 Temperature 97.1 F L Pulse Rate 86 Respiratory 18 Rate Blood Pressure 126/86 O2 Sat by Pulse 97 Oximetry Medical Decision Making - Medical Decision Making Was pt. sent in by a medical professional or institution (, PA, CENTER SALES AND SERVICE ASSOCIATE, urgent care, hospital, or chcf...) When possible be specific @ -No Did you speak to anyone other than the patient for history (EMS, parent, family, police, friend...)? What history was obtained from this source @ -No Did you review nursing and triage notes (agree or disagree)? Why? @ -I reviewed and agree with nursing and triage notes Were old charts reviewed (outside hosp., previous admission, EMS record, old EK G, old radiological studies, urgent care reports/EKG's, [facility] records)? Report findings @ -No old charts were reviewed Differential Diagnosis (chest pain, altered mental status, abdominal pain women, abdominal pain men, vaginal bleeding, weakness, fever, dyspnea, syncope, headache, dizziness, GI bleed, back pain, seizure, CVA, palpatations, mental health, musculoskeletal)? @Alcohol intoxication, intracranial hemorrhage, facial bone fracture EKG interpreted by me (3pts min.). @ -As above X-rays interpreted by me (1pt min.). @ -None done CT interpreted by me (1pt min.). @ -CT brain negative for intracranial hemorrhage, CT facial bones negative for displaced orbital fracture, nondisplaced nasal bone fracture present. CT cervical spine negative for fracture or subluxation. U/S interpreted by me (1pt. min.). @ -None done What testing was considered but not performed or refused? (CT, X-rays, U/S, labs)? Why? @ -None What meds were considered but not given or refused? Why? @ -None Did you discuss the management of the patient with other professionals (professionals i.e. , PA, CENTER SALES AND SERVICE ASSOCIATE, lab, RT, psych nurse, child welfare social worker, farmworker animal, teacher, casino surveillance officer, director of casework)? Give summary @ -No Was smoking cessation discussed for >3mins.? @ -No Was critical care preformed (if so, how long)? @ -No Were there social determinants of health that impacted care today? How? (Homele ssness, low income, unemployed, alcoholism, drug addiction, transportation, low edu. Level, literacy, decrease access to med. care, correction, rehab)? @ -No Was there de-escalation of care discussed even if they declined (Discuss DNR or withdrawal of care, Hospice)? DNR status @ -No What co-morbidities impacted this encounter? (DM, HTN, Smoking, COPD, CAD, Cancer, CVA, ARF, Chemo, Hep., AIDS, mental health diagnosis, sleep apnea, morbid obesity)? @ -Alcohol abuse Was patient admitted / discharged? Hospital course, mention meds given and route, prescriptions, significant lab abnormalities, going to OR and other pertinent info. @ -47-year-old male with alcohol intoxication and facial trauma. Imaging negative for displaced facial bone fracture, no intracranial hemorrhage, no cervical fracture or subluxation. Patient's alcohol level on breath testing is 186. He is observed in the emergency department until sober. Undiagnosed new problem with uncertain prognosis? @ -No Drug Therapy requiring intensive monitoring for toxicity (Heparin, Nitro, Insulin, Cardizem)? @ -No Were any procedures done? @ -No Diagnosis/symptom? @ -Concussion, alcohol intoxication, nasal bone fracture Acute, or Chronic, or Acute on Chronic? @ -Acute Uncomplicated (without systemic symptoms) or Complicated (systemic symptoms)? @ -Default Side effects of treatment? @ -No Exacerbation, Progression, or Severe Exacerbation? @ -No Poses a threat to life or bodily function? How? (Chest pain, [place], [place], pneumonia, PE, COPD, DKA, ARF, appy, cholecystitis, CVA, Diverticulitis, Homicidal, Suicidal, threat to staff... and all critical care pts) @ -Low risk at this time Disposition Clinical Impression: Alcohol intoxication, Nasal bone fracture, Concussion Disposition: HOME SELF-CARE Condition: Fair Instructions (If sedation given, give patient instructions): Nasal Fracture (ED), Concussion (ED), Alcohol Intoxication (ED) Is patient prescribed a controlled substance at d/c from ED?: No Referrals: None,Stated [Primary Care Provider] - 1-2 days Time of Disposition: 02:00
--- NOTE | 2023-06-13 23:22 | CT ---
EXAM: CT Head Without Intravenous Contrast CLINICAL HISTORY: ITS.REASON CT Reason: trauma TECHNIQUE: Axial computed tomography images of the head/brain without intravenous contrast. CTDI is 15.9 mGy and DLP is 463.6 mGy-cm. This CT exam was performed using one or more of the following dose reduction techniques: automated exposure control, adjustment of the mA and/or kV according to patient size, and/or use of iterative reconstruction technique. COMPARISON: No relevant prior studies available. FINDINGS: No acute intracranial hemorrhage. No midline shift or mass effect. The territorial dennis-white matter differentiation is maintained throughout. The ventricles and sulci are commensurate with age. The visualized orbits appear grossly unremarkable. Moderate RIGHT periorbital hematoma. The need for ophthalmology evaluation should be determined clinically. The calvarium is intact. The visualized paranasal sinuses and mastoid air cells are grossly clear. IMPRESSION: No acute intracranial hemorrhage, midline shift, or mass effect. Moderate RIGHT periorbital hematoma. The need for ophthalmology evaluation should be determined clinically. EXAM: CT Cervical Spine Without Intravenous Contrast CLINICAL HISTORY: ITS.REASON CT Reason: trauma TECHNIQUE: Axial computed tomography images of the cervical spine without intravenous contrast. CTDI is 15.9 mGy and DLP is 460.5 mGy-cm. This CT exam was performed using one or more of the following dose reduction techniques: automated exposure control, adjustment of the mA and/or kV according to patient size, and/or use of iterative reconstruction technique. COMPARISON: No relevant prior studies available. FINDINGS: The vertebral body heights are maintained. The craniocervical junction is intact. The atlanto-dens interval is maintained. The dens is intact. There is no spondylolisthesis. Multilevel cervical spondylosis and degenerative disc disease. Straightening of the cervical lordosis. The unenhanced neck soft tissues are grossly unremarkable. The visualized lung apices are grossly clear. IMPRESSION: No acute fracture or subluxation of the cervical spine.
--- NOTE | 2023-06-13 23:42 | CT ---
EXAM: CT Maxillofacial Without Intravenous Contrast CLINICAL HISTORY: ITS.REASON CT Reason: trauma TECHNIQUE: Axial computed tomography images of the face without intravenous contrast. CTDI is 0 mGy and DLP is 0 mGy-cm. This CT exam was performed using one or more of the following dose reduction techniques: automated exposure control, adjustment of the mA and/or kV according to patient size, and/or use of iterative reconstruction technique. COMPARISON: No relevant prior studies available. FINDINGS: The mandible is intact. Intact maxillary alveolus. The orbital rims and floors are intact. The intraorbital contents are grossly unremarkable. Moderate LEFT periorbital soft tissue swelling/hematoma. Intact definite nasal bones, nasal septum, and maxillary spines. Suspected, old nasal bridge fracture. Correlate for acute tenderness to exclude a nondisplaced fracture. The zygomatic arches and pterygoid processes are intact. IMPRESSION: Moderate LEFT periorbital soft tissue swelling/hematoma. Suspected, old nasal bridge fracture. Correlate for acute tenderness to exclude a nondisplaced fracture.
[2023-06-13] MEDS ORDERED: DIPH,PERTUS(ACELL)TETVAC-LF 0.5 ML VIAL IM ONE (23:54)
[2023-06-14 06:00] VITALS: BP 113/69; PULSE 90; RESP 16
== END 2023-06-14 06:14 | disposition home or self-care (01) ==
LOC: EC 21:43
DX: S02.2XXA Fracture of nasal bones, initial encounter for closed fracture (principal); S06.0X0A Concussion without loss of consciousness, initial encounter; R40.2410 Glasgow coma scale score 13-15, unspecified time; F10.129 Alcohol abuse with intoxication, unspecified; F17.200 Nicotine dependence, unspecified, uncomplicated; Z23 Encounter for immunization; Z91.040 Latex allergy status; W14.XXXA Fall from tree, initial encounter
CPT/HCPCS: 70450; 70486; 72125; 90471; 90715; 99284

== ENCOUNTER 2023-09-21 17:22 | Emergency (ER) | payer OTHER ==
[2023-09-21 17:32] VITALS: BP 115/74; PULSE 93; RESP 20; TEMP 98.1
--- NOTE | 2023-09-21 17:42 | ED ---
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 EMS report patient consumed 4 16oz beer this afternoon and was found laying in someone's yard. Patient denies any current complaints. (Marva Lynn) This is a 47 male found significantly intoxicated and brought to the emergency department (Raji Madison) - Related Data Previous Rx's Medication Instructions Recorded Acetaminophen Tab [Tylenol] 650 mg PO Q4HR PRN tab 04/18/22 Atorvastatin [Lipitor] 10 mg PO DAILY 30 Days tab 04/18/22 Escitalopram [Lexapro] 5 mg PO DAILY 30 Days tab 04/18/22 Naltrexone HCl [Revia] 50 mg PO DAILY 30 Days tab 04/18/22 lisinopriL [Zestril] 10 mg PO DAILY 30 Days tab 04/18/22 metFORMIN HCL [Glucophage] 500 mg PO BID-W/MEALS 30 Days tab 04/18/22 Ibuprofen [Motrin] 600 mg PO Q8HR PRN #30 tab 07/23/22 Cyclobenzaprine [Flexeril] 10 mg PO TID PRN #12 tablet 02/09/23 Ibuprofen [Motrin] 600 mg PO Q6HR PRN #20 tab 02/09/23 predniSONE [Deltasone] 20 mg PO BID #10 tab 02/09/23 Allergies Allergy/AdvReac Type Severity Reaction Status Date / Time lactose AdvReac Diarrhea Verified 09/21/23 17:27 Review of Systems ROS Other: All systems not noted in ROS Statement are negative. <Marva Lynn - Last Filed: 09/21/23 17:40> ROS Other: All systems not noted in ROS Statement are negative. <GriceldaRaji Mansi - Last Filed: 10/04/23 19:14> ROS Statement: Those systems with pertinent positive or pertinent negative responses have been documented in the HPI. Past Medical History Past Medical History: GERD/Reflux Additional Past Medical History / Comment(s): acid reflux with spicy food History of Any Multi-Drug Resistant Organisms: None Reported Past Surgical History: No Surgical Hx Reported Past Anesthesia/Blood Transfusion Reactions: No Reported Reaction Past Psychological History: No Psychological Hx Reported Smoking Status: Current every day smoker Past Alcohol Use History: Daily, Heavy, Occasional Past Drug Use History: None Reported - Past Family History Father Family Medical History: Diabetes Mellitus Additional Family Medical History / Comment(s): Father had diabetes and it runs strongley in his family. Mother Additional Family Medical History / Comment(s): Mother has had bronchitis. <Marva Lynn - Last Filed: 09/21/23 17:40> General Exam Limitations: no limitations <Marva Lynn - Last Filed: 09/21/23 17:40> General appearance: alert, in no apparent distress, appears intoxicated Head exam: Present: atraumatic, normocephalic, normal inspection Eye exam: Present: normal appearance, PERRL, EOMI. Absent: scleral icterus, conjunctival injection, periorbital swelling ENT exam: Present: normal exam, mucous membranes moist Neck exam: Present: normal inspection. Absent: tenderness, meningismus, lymphadenopathy Respiratory exam: Present: normal lung sounds bilaterally. Absent: respiratory distress, wheezes, rales, rhonchi, stridor Cardiovascular Exam: Present: regular rate, normal rhythm, normal heart sounds. Absent: systolic murmur, diastolic murmur, rubs, gallop, clicks GI/Abdominal exam: Present: soft, normal bowel sounds. Absent: distended, tenderness, guarding, rebound, rigid Extremities exam: Present: normal inspection, full ROM, normal capillary refill. Absent: tenderness, pedal edema, joint swelling, calf tenderness Back exam: Present: normal inspection Neurological exam: Present: alert, oriented X3, CN II-XII intact Psychiatric exam: Present: normal affect, normal mood Skin exam: Present: warm, dry, intact, normal color. Absent: rash <Raji Madison - Last Filed: 10/04/23 19:14> - General Exam Comments Initial Comments: Visual Physical Exam Vital signs reviewed General: No apparent distress, intoxicated Head: Normocephalic, atraumatic Eyes: PERRLA, EOMI ENT: Airway patent Chest: Nonlabored breathing Skin: No visual rash, normal skin tone Neuro: Alert and oriented 3 Musculoskeletal: No gross abnormalities (Marva Lynn) Course <Raji Madison - Last Filed: 10/04/23 19:14> Vital Signs 09/21/23 17:24 Temperature 98.1 F Pulse Rate 93 Respiratory 20 Rate Blood Pressure 115/74 O2 Sat by Pulse 99 Oximetry - Reevaluation(s) Reevaluation #1: 09/21/23 23:16 Records reviewed (Raji Madison) Reevaluation #2: 09/21/23 23:16 Patient symptoms improved and wants discharge (Raji Madison) Reevaluation #3: 09/21/23 23:16 Patient informed of results questions answered (Raji Madison) Reevaluation #4: Was pt. sent in by a medical professional or institution (GUSTAVO Garcia, DIRECTOR OF SOCIAL WORK, urgent care, hospital, or fdc...) When possible be specific @ -no Did you speak to anyone other than the patient for history (EMS, parent, family, police, friend...)? What history was obtained from this source @ -no Did you review nursing and triage notes (agree or disagree)? Why? @ -agree Are old charts reviewed (outside hosp., previous admission, EMS record, old EKG, old radiological studies, urgent care reports/EKG's, fdc records)? Report findings @ -yes Differential Diagnosis (chest pain, altered mental status, abdominal pain women, abdominal pain men, vaginal bleeding, weakness, fever, dyspnea, syncope, headache, dizziness, GI bleed, back pain, seizure, CVA, palpatations, mental health, musculoskeletal)? @ -prior EKG interpreted by me (3pts min.). @ -no X-rays interpreted by me (1pt min.). @ -no CT interpreted by me (1pt min.). @ -no U/S interpreted by me (1pt. min.). @ -no What testing was considered but not performed or refused? (CT, X-rays, U/S, labs)? Why? @ -none What meds were considered but not given or refused? Why? @ -none Did you discuss the management of the patient with other professionals (professionals i.e. Dr., PA, DIRECTOR OF SOCIAL WORK, lab, RT, psych nurse, social professionals, supervisor pullet farm, teacher, mail officer, counseling case manager)? Give summary @ -no Was smoking cessation discussed for >3mins.? @ -no Was critical care preformed (if so, how long)? @ -no Were there social determinants of health that impacted care today? How? (Homelessness, low income, unemployed, alcoholism, drug addiction, transportation, low edu. Level, literacy, decrease access to med. care, longterm, rehab)? @ -none Was there de-escalation of care discussed even if they declined (Discuss DNR or withdrawal of care, Hospice)? DNR status @ -no What co-morbidities impacted this encounter? (DM, HTN, Smoking, COPD, CAD, Cancer, CVA, ARF, Chemo, Hep., AIDS, mental health diagnosis, sleep apnea, morbid obesity)? @ -none Was patient admitted / discharged? Hospital course, mention meds given and route, prescriptions, significant lab abnormalities, going to OR and other pertinent info. @ - 47 male can be discharged home for acute alcohol intoxication Discharge Undiagnosed new problem with uncertain prognosis? @ -no Drug Therapy requiring intensive monitoring for toxicity (Heparin, Nitro, Insulin, Cardizem)? @ -no Were any procedures done? @ -no Diagnosis/symptom? @ -Alcohol intoxication Acute, or Chronic, or Acute on Chronic? @ -Acute Uncomplicated (without systemic symptoms) or Complicated (systemic symptoms)? @ -Complicated Side effects of treatment? @ -no Exacerbation, Progression, or Severe Exacerbation? @ -exacerbation Poses a threat to life or bodily function? How? (Chest pain, [place], [place], pneumonia, PE, COPD, DKA, ARF, appy, cholecystitis, CVA, Diverticulitis, Homicidal, Suicidal, threat to staff... and all critical care pts) @ -yes with severe intoxication (Raji Madison) Medical Decision Making <Marva Lynn - Last Filed: 09/21/23 17:40> <Raji Madison - Last Filed: 10/04/23 19:14> - Medical Decision Making I performed the quick note portion of this chart. Electronically signed by Marva Lynn PA-C (Marva Lynn) 47 male can be discharged home for acute alcohol intoxication (Raji Madison) Disposition <Marva Lynn - Last Filed: 09/21/23 17:40> Is patient prescribed a controlled substance at d/c from ED?: No <Raji Madison - Last Filed: 10/04/23 19:14> Clinical Impression: Alcohol abuse, Alcohol intoxication Disposition: HOME SELF-CARE Condition: Fair Instructions (If sedation given, give patient instructions): Alcohol Intoxication (ED) Referrals: None,Stated [REFERRING] - 1-2 days
== END 2023-09-21 23:28 | disposition home or self-care (01) ==
LOC: EC 17:22
DX: F10.129 Alcohol abuse with intoxication, unspecified (principal); Z91.011 Allergy to milk products
CPT/HCPCS: 99283

== ENCOUNTER 2023-11-19 11:05 | Emergency (ER) | payer BC ==
[2023-11-19 11:10] VITALS: TEMP 97.9
[2023-11-19 11:11] LABS: Glucose,Whole Blood 125 mg/dL (70-110)
[2023-11-19] MEDS: SODIUM CHLORIDE 0.9% 1,000 ML IV STA (11:46)
[2023-11-19 11:47] LABS: Basophils % (A) 1 %; Eosinophils # (A) 0.1 k/uL (0-0.7); Eosinophils % (A) 2 %; HCT 41.8 % (39.0-53.0); HGB 14.1 gm/dL (13.0-17.5); Lymphocytes # (A) 1.5 k/uL (1.0-4.8); Lymphocytes % (A) 33 %; MCH 29.6 pg (25.0-35.0); MCHC 33.6 g/dL (31.0-37.0); MCV 88.1 fL (80.0-100.0); Mean Platelet Volume 7.1; Monocytes # (A) 0.4 k/uL (0-1.0); Monocytes % (A) 8 %; Neutrophils # (A) 2.4 k/uL (1.3-7.7); Neutrophils % (A) 52 %; Platelet Count 293 k/uL (150-450); RBC 4.75 m/uL (4.30-5.90); RDW 13.2 % (11.5-15.5); WBC 4.6 k/uL (3.8-10.6)
--- NOTE | 2023-11-19 11:49 | ED ---
Weakness HPI - General Chief complaint: Weakness Stated complaint: Weakness Time Seen by Provider: 11/19/23 11:10 Source: patient, RN notes reviewed Mode of arrival: ambulatory Limitations: no limitations - History of Present Illness Initial comments: 48-year-old male presents emergency department with chief complaint with chief complaint of weakness. Patient states that he has been extremely fatigued, states he has been sleeping but states he still feels unrested he does admit that he been working 7 days a week long hours. Patient does admit to frequent alcohol use and drinks morning. Patient denies any chest pain shortness of breath headache dizziness dysuria diarrhea or any focal weakness. Patient denies illicit drug use - Related Data Previous Rx's Medication Instructions Recorded Acetaminophen Tab [Tylenol] 650 mg PO Q4HR PRN tab 04/18/22 Atorvastatin [Lipitor] 10 mg PO DAILY 30 Days tab 04/18/22 Escitalopram [Lexapro] 5 mg PO DAILY 30 Days tab 04/18/22 Naltrexone HCl [Revia] 50 mg PO DAILY 30 Days tab 04/18/22 lisinopriL [Zestril] 10 mg PO DAILY 30 Days tab 04/18/22 metFORMIN HCL [Glucophage] 500 mg PO BID-W/MEALS 30 Days tab 04/18/22 Ibuprofen [Motrin] 600 mg PO Q8HR PRN #30 tab 07/23/22 Cyclobenzaprine [Flexeril] 10 mg PO TID PRN #12 tablet 02/09/23 Ibuprofen [Motrin] 600 mg PO Q6HR PRN #20 tab 02/09/23 predniSONE [Deltasone] 20 mg PO BID #10 tab 02/09/23 Allergies Allergy/AdvReac Type Severity Reaction Status Date / Time lactose AdvReac Diarrhea Verified 11/19/23 11:13 Review of Systems ROS Statement: Those systems with pertinent positive or pertinent negative responses have been documented in the HPI. ROS Other: All systems not noted in ROS Statement are negative. Past Medical History Past Medical History: Diabetes Mellitus, GERD/Reflux Additional Past Medical History / Comment(s): acid reflux with spicy food History of Any Multi-Drug Resistant Organisms: None Reported Past Surgical History: No Surgical Hx Reported Past Anesthesia/Blood Transfusion Reactions: No Reported Reaction Past Psychological History: No Psychological Hx Reported Smoking Status: Current every day smoker Past Alcohol Use History: Daily, Heavy, Occasional Past Drug Use History: None Reported - Past Family History Father Family Medical History: Diabetes Mellitus Additional Family Medical History / Comment(s): Father had diabetes and it runs strongley in his family. Mother Additional Family Medical History / Comment(s): Mother has had bronchitis. General Exam Limitations: no limitations General appearance: alert, in no apparent distress Head exam: Present: atraumatic, normocephalic, normal inspection Eye exam: Present: normal appearance, PERRL, EOMI. Absent: scleral icterus, conjunctival injection, periorbital swelling ENT exam: Present: normal exam, normal oropharynx, mucous membranes moist Neck exam: Present: normal inspection, full ROM. Absent: tenderness, meningismus, lymphadenopathy Respiratory exam: Present: normal lung sounds bilaterally. Absent: respiratory distress, wheezes, rales, rhonchi, stridor Cardiovascular Exam: Present: regular rate, normal rhythm, normal heart sounds. Absent: systolic murmur, diastolic murmur, rubs, gallop, clicks GI/Abdominal exam: Present: soft, normal bowel sounds. Absent: distended, tenderness, guarding, rebound, rigid Back exam: Present: full ROM. Absent: tenderness, paraspinal tenderness Neurological exam: Present: alert, oriented X3, CN II-XII intact, reflexes normal. Absent: motor sensory deficit Skin exam: Present: warm, dry, intact, normal color. Absent: rash Course Vital Signs 11/19/23 11/19/23 11/19/23 11:07 12:10 13:48 Temperature 97.9 F Pulse Rate 96 92 92 Respiratory 18 16 18 Rate Blood Pressure 113/78 114/82 120/92 O2 Sat by Pulse 98 94 L 97 Oximetry EKG Findings - EKG Comments: EKG Findings:: EKG performed 11: 53 sinus rhythm with rate of 85 HI 164 QRS 94 QT/QTc 372/415 - EKG Results: EKG: interpreted by ERMD Medical Decision Making - Medical Decision Making Was pt. sent in by a medical professional or institution (, PA, DATABASE MANAGER, urgent care, hospital, or [facility]...) When possible be specific @ -No Did you speak to anyone other than the patient for history (EMS, parent, family, police, friend...)? What history was obtained from this source @ -No Did you review nursing and triage notes (agree or disagree)? Why? @ -I reviewed and agree with nursing and triage notes Were old charts reviewed (outside hosp., previous admission, EMS record, old EKG, old radiological studies, urgent care reports/EKG's, [facility] records)? Report findings @ -No old charts were reviewed Differential Diagnosis (chest pain, altered mental status, abdominal pain women, abdominal pain men, vaginal bleeding, weakness, fever, dyspnea, syncope, headache, dizziness, GI bleed, back pain, seizure, CVA, palpatations, mental health, musculoskeletal)? @ -Differential Weakness: Hypoglycemia, shock, sepsis, hyponatremia, anemia, infection, [place], ETOH, adverse medicine reaction, overdose, stroke, this is not meant to be an all-inclusive list. EKG interpreted by me (3pts min.). @ -As above X-rays interpreted by me (1pt min.). @ -None done CT interpreted by me (1pt min.). @ -None done U/S interpreted by me (1pt. min.). @ -None done What testing was considered but not performed or refused? (CT, X-rays, U/S, labs)? Why? @ -None What meds were considered but not given or refused? Why? @ -None Did you discuss the management of the patient with other professionals (professionals i.e. , PA, DATABASE MANAGER, lab, RT, psych nurse, social media marketing manager, facility coordinator, teacher, credit officer, returned case inspector)? Give summary @ -No Was smoking cessation discussed for >3mins.? @ -No Was critical care preformed (if so, how long)? @ -No Were there social determinants of health that impacted care today? How? (Homelessness, low income, unemployed, alcoholism, drug addiction, transportation, low edu. Level, literacy, decrease access to med. care, alf, rehab)? @ -No Was there de-escalation of care discussed even if they declined (Discuss DNR or withdrawal of care, Hospice)? DNR status @ -No What co-morbidities impacted this encounter? (DM, HTN, Smoking, COPD, CAD, Cancer, CVA, ARF, Chemo, Hep., AIDS, mental health diagnosis, sleep apnea, morbid obesity)? @ -Alcohol abuse Was patient admitted / discharged? Hospital course, mention meds given and route, prescriptions, significant lab abnormalities, going to OR and other pertinent info. @ -Discharge patient had full workup including labs, EKG with no acute findings. Patient presented for generalized weakness patient is acutely dehydrated, intoxicated. Patient picked up by her brother. Patient discharged in stable condition Undiagnosed new problem with uncertain prognosis? @ -No Drug Therapy requiring intensive monitoring for toxicity (Heparin, Nitro, Insulin, Cardizem)? @ -No Were any procedures done? @ -No Diagnosis/symptom? @ -Dehydration, alcohol intoxication, weakness Acute, or Chronic, or Acute on Chronic? @ -Acute Uncomplicated (without systemic symptoms) or Complicated (systemic symptoms)? @ -Uncomplicated Side effects of treatment? @ -No Exacerbation, Progression, or Severe Exacerbation? @ -No Poses a threat to life or bodily function? How? (Chest pain, [place], [place], pneumonia, PE, COPD, DKA, ARF, appy, cholecystitis, CVA, Diverticulitis, Homicidal, Suicidal, threat to staff... and all critical care pts) @ -No - Lab Data Result diagrams: 11/19/23 11:35 11/19/23 11:35 Lab Results 11/19/23 11/19/23 11/19/23 Range/Units 11:09 11:35 11:35 WBC 4.6 (3.8-10.6) k/uL RBC 4.75 (4.30-5.90) m/uL Hgb 14.1 (13.0-17.5) gm/dL Hct 41.8 (39.0-53.0) % MCV 88.1 (80.0-100.0) fL MCH 29.6 (25.0-35.0) pg MCHC 33.6 (31.0-37.0) g/dL RDW 13.2 (11.5-15.5) % Plt Count 293 (150-450) k/uL MPV 7.1 Neutrophils % 52 % Lymphocytes % 33 % Monocytes % 8 % Eosinophils % 2 % Basophils % 1 % Neutrophils # 2.4 (1.3-7.7) k/uL Lymphocytes # 1.5 (1.0-4.8) k/uL Monocytes # 0.4 (0-1.0) k/uL Eosinophils # 0.1 (0-0.7) k/uL Basophils # 0.0 (0-0.2) k/uL Sodium 136 L (137-145) mmol/L Potassium 4.4 (3.5-5.1) mmol/L Chloride 104 (98-107) mmol/L Carbon Dioxide 22 (22-30) mmol/L Anion Gap 10 mmol/L BUN 11 (9-20) mg/dL Creatinine 0.76 (0.66-1.25) mg/dL Est GFR (CKD-EPI)AfAm >90 (>60 ml/min/1.73 sqM) Est GFR (CKD-EPI)NonAf >90 (>60 ml/min/1.73 sqM) Glucose 112 H (74-99) mg/dL POC Glucose (mg/dL) 125 H (70-110) mg/dL POC Glu Booster Operator ID Veronique Hernandez Calcium 9.1 (8.4-10.2) mg/dL Magnesium 2.1 (1.6-2.3) mg/dL Total Bilirubin 0.8 (0.2-1.3) mg/dL AST 42 (17-59) U/L ALT 51 H (4-49) U/L Alkaline Phosphatase 68 (38-126) U/L Troponin I (0.000-0.034) ng/mL Total Protein 7.6 (6.3-8.2) g/dL Albumin 4.7 (3.5-5.0) g/dL Serum Alcohol 189 mg/dL 11/19/23 Range/Units 11:35 WBC (3.8-10.6) k/uL RBC (4.30-5.90) m/uL Hgb (13.0-17.5) gm/dL Hct (39.0-53.0) % MCV (80.0-100.0) fL MCH (25.0-35.0) pg MCHC (31.0-37.0) g/dL RDW (11.5-15.5) % Plt Count (150-450) k/uL MPV Neutrophils % % Lymphocytes % % Monocytes % % Eosinophils % % Basophils % % Neutrophils # (1.3-7.7) k/uL Lymphocytes # (1.0-4.8) k/uL Monocytes # (0-1.0) k/uL Eosinophils # (0-0.7) k/uL Basophils # (0-0.2) k/uL Sodium (137-145) mmol/L Potassium (3.5-5.1) mmol/L Chloride (98-107) mmol/L Carbon Dioxide (22-30) mmol/L Anion Gap mmol/L BUN (9-20) mg/dL Creatinine (0.66-1.25) mg/dL Est GFR (CKD-EPI)AfAm (>60 ml/min/1.73 sqM) Est GFR (CKD-EPI)NonAf (>60 ml/min/1.73 sqM) Glucose (74-99) mg/dL POC Glucose (mg/dL) (70-110) mg/dL POC Glu Booster Operator ID Calcium (8.4-10.2) mg/dL Magnesium (1.6-2.3) mg/dL Total Bilirubin (0.2-1.3) mg/dL AST (17-59) U/L ALT (4-49) U/L Alkaline Phosphatase (38-126) U/L Troponin I <0.012 (0.000-0.034) ng/mL Total Protein (6.3-8.2) g/dL Albumin (3.5-5.0) g/dL Serum Alcohol mg/dL Disposition Clinical Impression: Alcohol intoxication, Dehydration, Fatigue Disposition: HOME SELF-CARE Condition: Stable Additional Instructions: Please return to the Emergency Department if symptoms worsen or any other concerns. Is patient prescribed a controlled substance at d/c from ED?: No Referrals: Robert Nuñez MD [Primary Care Provider] - 1-2 days Time of Disposition: 13:40
[2023-11-19 11:58] LABS: ALT 51 U/L (4-49); AST 42 U/L (17-59); African American GFR (CKD) >90 (>60 ml/min/1.73 sqM); Albumin 4.7 g/dL (3.5-5.0); Alkaline Phosphatase 68 U/L (38-126); Anion Gap 10 mmol/L; Blood Urea Nitrogen 11 mg/dL (9-20); Calcium 9.1 mg/dL (8.4-10.2); Carbon Dioxide 22 mmol/L (22-30); Chloride 104 mmol/L (98-107); Glucose 112 mg/dL (74-99); Magnesium 2.1 mg/dL (1.6-2.3); Non-African American GFR(CKD) >90 (>60 ml/min/1.73 sqM); Potassium 4.4 mmol/L (3.5-5.1); Sodium 136 mmol/L (137-145); Total Bilirubin 0.8 mg/dL (0.2-1.3); Total Protein 7.6 g/dL (6.3-8.2)
[2023-11-19 12:20] VITALS: PULSE 92
[2023-11-19 12:31] LABS: Alcohol 189 mg/dL
[2023-11-19 13:49] VITALS: BP 120/92; RESP 18
== END 2023-11-19 13:49 | disposition home or self-care (01) ==
LOC: EC 11:05
DX: F10.129 Alcohol abuse with intoxication, unspecified (principal); E86.0 Dehydration; R53.83 Other fatigue; F17.200 Nicotine dependence, unspecified, uncomplicated; Z91.011 Allergy to milk products; Y90.6 Blood alcohol level of 120-199 mg/100 ml
CPT/HCPCS: 36415; 80053; 80320; 83735; 84484; 85025; 93005; 96360; 99285

== ENCOUNTER 2024-08-06 11:25 | Emergency (ER) | payer BC ==
[2024-08-06 11:49] VITALS: BP 95/66; PULSE 91; RESP 17; TEMP 97.8
--- NOTE | 2024-08-06 12:11 | ED ---
Wound/Laceration HPI - General Chief Complaint: Wound/Laceration Stated Complaint: Left injury Time Seen by Provider: 08/06/24 12:11 Source: patient, RN notes reviewed Mode of arrival: ambulatory Limitations: no limitations - History of Present Illness Initial Comments: 48-year-old male presented the ER for evaluation of finger injury. Patient reports he was cutting cucumbers as he was attempting to make a salad when he accidentally cut his right third digit. He states the wound will not stop bleeding. He is not on any blood thinners. Tetanus is up-to-date. He denies any paresthesias to right third digit. No limited range of motion. Patient has no other complaints at this time. - Related Data Previous Rx's Medication Instructions Recorded Acetaminophen Tab [Tylenol] 650 mg PO Q4HR PRN tab 04/18/22 Atorvastatin [Lipitor] 10 mg PO DAILY 30 Days tab 04/18/22 Escitalopram [Lexapro] 5 mg PO DAILY 30 Days tab 04/18/22 Naltrexone HCl [Revia] 50 mg PO DAILY 30 Days tab 04/18/22 lisinopriL [Zestril] 10 mg PO DAILY 30 Days tab 04/18/22 metFORMIN HCL [Glucophage] 500 mg PO BID-W/MEALS 30 Days tab 04/18/22 Ibuprofen [Motrin] 600 mg PO Q8HR PRN #30 tab 07/23/22 Cyclobenzaprine [Flexeril] 10 mg PO TID PRN #12 tablet 02/09/23 Ibuprofen [Motrin] 600 mg PO Q6HR PRN #20 tab 02/09/23 predniSONE [Deltasone] 20 mg PO BID #10 tab 02/09/23 Allergies Allergy/AdvReac Type Severity Reaction Status Date / Time lactose AdvReac Diarrhea Verified 08/06/24 11:49 Review of Systems ROS Statement: Those systems with pertinent positive or pertinent negative responses have been documented in the HPI. ROS Other: All systems not noted in ROS Statement are negative. Past Medical History Past Medical History: Diabetes Mellitus, GERD/Reflux Additional Past Medical History / Comment(s): acid reflux with spicy food History of Any Multi-Drug Resistant Organisms: None Reported Past Surgical History: No Surgical Hx Reported Past Anesthesia/Blood Transfusion Reactions: No Reported Reaction Past Psychological History: No Psychological Hx Reported Smoking Status: Current every day smoker Past Alcohol Use History: Daily, Heavy, Occasional Past Drug Use History: None Reported - Past Family History Father Family Medical History: Diabetes Mellitus Additional Family Medical History / Comment(s): Father had diabetes and it runs strongley in his family. Mother Additional Family Medical History / Comment(s): Mother has had bronchitis. General Exam - General Exam Comments Initial Comments: Visual Physical Exam Vital signs reviewed General: Well-appearing, nontoxic, no acute distress. Head: Normocephalic, atraumatic Eyes: PERRLA, EOMI ENT: Airway patent Chest: Nonlabored breathing Skin: No visual rash, normal skin tone, avulsion injury to left second digit so ft tissue Neuro: Alert and oriented 3 Musculoskeletal: No gross abnormalities Limitations: no limitations General appearance: alert, in no apparent distress Respiratory exam: Present: normal lung sounds bilaterally. Absent: respiratory distress, wheezes, rales, rhonchi, stridor Cardiovascular Exam: Present: regular rate, normal rhythm, normal heart sounds. Absent: systolic murmur, diastolic murmur, rubs, gallop, clicks Extremities exam: Present: normal inspection, full ROM, normal capillary refill (2+ right radial). Absent: tenderness, pedal edema, joint swelling, calf tenderness Neurological exam: Present: alert, oriented X3, CN II-XII intact Skin exam: Present: warm, dry, intact, normal color, other (There is a 1 cm avulsion soft tissue injury to right third digit in between PIP and DIP joint. No active bleeding on exam. Blood clot in place.) Course Vital Signs 08/06/24 11:47 Temperature 97.8 F Pulse Rate 91 Respiratory 17 Rate Blood Pressure 95/66 O2 Sat by Pulse 98 Oximetry Medical Decision Making - Medical Decision Making I performed the quick note portion of this chart. Electronically signed by Shira Lynn PA-C Was pt. sent in by a medical professional or institution ([facility], [facility], urgent care, hospital, or longterm...) When possible be specific @ -No Did you speak to anyone other than the patient for history (EMS, parent, family, police, friend...)? What history was obtained from this source @ -No Did you review nursing and triage notes (agree or disagree)? Why? @ -I reviewed and agree with nursing and triage notes Were old charts reviewed (outside hosp., previous admission, EMS record, old EKG, old radiological studies, urgent care reports/EKG's, longterm records)? Report findings @ -No old charts were reviewed Differential Diagnosis (chest pain, altered mental status, abdominal pain women, abdominal pain men, vaginal bleeding, weakness, fever, dyspnea, syncope, headache, dizziness, GI bleed, back pain, seizure, CVA, palpatations, mental health, musculoskeletal)? @ -Laceration, abrasion, contusion, avulsion, foreign body this list is not meant to be all-inclusive EKG interpreted by me (3pts min.). @ -None done X-rays interpreted by me (1pt min.). @ -None done CT interpreted by me (1pt min.). @ -None done U/S interpreted by me (1pt. min.). @ -None done What testing was considered but not performed or refused? (CT, X-rays, U/S, labs)? Why? @ -Imaging considered but not performed as there is no focal bony tenderness, limited range of motion or concern of radiopaque foreign body. What meds were considered but not given or refused? Why? @ -None Did you discuss the management of the patient with other professionals (pro fessionals i.e. , PA, [facility], lab, RT, psych nurse, criminal justice social worker, carder blankets, teacher, evp and chief operating officer, patient case manager)? Give summary @ -No Was smoking cessation discussed for >3mins.? @ -No Was critical care preformed (if so, how long)? @ -No Were there social determinants of health that impacted care today? How? (Homelessness, low income, unemployed, alcoholism, drug addiction, transportation, low edu. Level, literacy, decrease access to med. care, assisted, rehab)? @ -No Was there de-escalation of care discussed even if they declined (Discuss DNR or withdrawal of care, Hospice)? DNR status @ -No What co-morbidities impacted this encounter? (DM, HTN, Smoking, COPD, CAD, Cancer, CVA, ARF, Chemo, Hep., AIDS, mental health diagnosis, sleep apnea, morbid obesity)? @ -None Was patient admitted / discharged? Hospital course, mention meds given and route, prescriptions, significant lab abnormalities, going to OR and other pertinent info. @ -Discharge. 48-year-old male presented the ER for evaluation of laceration. Exam remarkable for a 1 cm soft tissue avulsion to the right third digit. Patient is neurovascularly intact with intact active range of motion. Tetanus is up-to-date, per patient. Wound cleaned with sterile water. Gelfoam placed to prevent bleeding and finger wrapped with gauze. I advised him to keep dressing in place for a minimum of 24 hours. Wound care discussed with patient. Strict return parameters discussed. Patient discharged in stable condition with follow-up to PCP. Patient verbally expressed understanding and agree with care plan. Case discussed with ED attending, Dr. Garcia. Undiagnosed new problem with uncertain prognosis? @ -No Drug Therapy requiring intensive monitoring for toxicity (Heparin, Nitro, Insulin, Cardizem)? @ -No Were any procedures done? @ -No Diagnosis/symptom? @ -Soft tissue avulsion Acute, or Chronic, or Acute on Chronic? @ -Acute Uncomplicated (without systemic symptoms) or Complicated (systemic symptoms)? @ -Uncomplicated Side effects of treatment? @ -No Exacerbation, Progression, or Severe Exacerbation? @ -No Poses a threat to life or bodily function? How? (Chest pain, [place], [place], pneumonia, PE, COPD, DKA, ARF, appy, cholecystitis, CVA, Diverticulitis, Homicidal, Suicidal, threat to staff... and all critical care pts) @ -No Disposition Clinical Impression: Avulsion of soft tissue Disposition: HOME SELF-CARE Condition: Stable Additional Instructions: Keep dressing in place for 24 hours. Follow-up with PCP. Return to the ER for any new or worsening concerns. Is patient prescribed a controlled substance at d/c from ED?: No Referrals: Rosa Villafana DO [Primary Care Provider] - 1-2 days Time of Disposition: 12:53
== END 2024-08-06 13:07 | disposition home or self-care (01) ==
LOC: EC 11:25
DX: S61.303A Unspecified open wound of left middle finger with damage to nail, initial encounter (principal); F17.200 Nicotine dependence, unspecified, uncomplicated; Z91.011 Allergy to milk products; W26.9XXA Contact with unspecified sharp object(s), initial encounter
CPT/HCPCS: 99282

== ENCOUNTER 2024-12-06 17:20 | Emergency (ER) | payer BC, OTHER ==
--- NOTE | 2024-12-06 17:41 | ED ---
Allergic Reaction HPI - General Chief complaint: Allergic Reaction Stated complaint: swollen upper lip Time Seen by Provider: 12/06/24 17:26 Source: patient, RN notes reviewed, old records reviewed Mode of arrival: ambulatory Limitations: no limitations - History of Present Illness Initial Comments: This is a 49-year-old male to the ER for evaluation of lip swelling upper lip swelling. Patient states that occurred while he was taking a sip of beer today. He started noticed his lip was swollen. Patient is on lisinopril has been for years never has had facial swelling or allergic reaction. No other exposure MD Complaint: allergic reaction, facial swelling, other (Patient is on lisinopril) -: hour(s) Exposure: medication (Suspected lisinopril) Symptoms: lip swelling Severity: moderate Treatment Prior to Arrival: none Previous Allergy History: none - Related Data Previous Rx's Medication Instructions Recorded Acetaminophen Tab [Tylenol] 650 mg PO Q4HR PRN tab 04/18/22 Atorvastatin [Lipitor] 10 mg PO DAILY 30 Days tab 04/18/22 Escitalopram [Lexapro] 5 mg PO DAILY 30 Days tab 04/18/22 Naltrexone HCl [Revia] 50 mg PO DAILY 30 Days tab 04/18/22 lisinopriL [Zestril] 10 mg PO DAILY 30 Days tab 04/18/22 metFORMIN HCL [Glucophage] 500 mg PO BID-W/MEALS 30 Days tab 04/18/22 Ibuprofen [Motrin] 600 mg PO Q8HR PRN #30 tab 07/23/22 Cyclobenzaprine [Flexeril] 10 mg PO TID PRN #12 tablet 02/09/23 Ibuprofen [Motrin] 600 mg PO Q6HR PRN #20 tab 02/09/23 predniSONE [Deltasone] 20 mg PO BID #10 tab 02/09/23 Valsartan [Diovan] 80 mg PO DAILY #30 tab 12/06/24 predniSONE 50 mg PO DAILY #5 tab 12/06/24 Allergies Allergy/AdvReac Type Severity Reaction Status Date / Time lactose AdvReac Diarrhea Verified 12/06/24 17:24 Review of Systems ROS Statement: Those systems with pertinent positive or pertinent negative responses have been documented in the HPI. ROS Other: All systems not noted in ROS Statement are negative. Past Medical History Past Medical History: Diabetes Mellitus, GERD/Reflux Additional Past Medical History / Comment(s): acid reflux with spicy food History of Any Multi-Drug Resistant Organisms: None Reported Past Surgical History: No Surgical Hx Reported Past Anesthesia/Blood Transfusion Reactions: No Reported Reaction Past Psychological History: No Psychological Hx Reported Smoking Status: Current every day smoker Past Alcohol Use History: Daily, Heavy, Occasional Past Drug Use History: None Reported - Past Family History Father Family Medical History: Diabetes Mellitus Additional Family Medical History / Comment(s): Father had diabetes and it runs strongley in his family. Mother Additional Family Medical History / Comment(s): Mother has had bronchitis. General Exam - General Exam Comments Initial Comments: Upper lip swelling no oral or lingual involvement Limitations: no limitations General appearance: alert, in no apparent distress Head exam: Present: atraumatic, normocephalic, normal inspection Eye exam: Present: normal appearance, PERRL, EOMI. Absent: scleral icterus, conjunctival injection, periorbital swelling ENT exam: Present: normal exam, mucous membranes moist Neck exam: Present: normal inspection. Absent: tenderness, meningismus, lymphadenopathy Respiratory exam: Present: normal lung sounds bilaterally. Absent: respiratory distress, wheezes, rales, rhonchi, stridor Cardiovascular Exam: Present: regular rate, normal rhythm, normal heart sounds. Absent: systolic murmur, diastolic murmur, rubs, gallop, clicks GI/Abdominal exam: Present: soft, normal bowel sounds. Absent: distended, tenderness, guarding, rebound, rigid Extremities exam: Present: normal inspection, full ROM, normal capillary refill. Absent: tenderness, pedal edema, joint swelling, calf tenderness Back exam: Present: normal inspection Neurological exam: Present: alert, oriented X3, CN II-XII intact Psychiatric exam: Present: normal affect, normal mood Skin exam: Present: warm, dry, intact, normal color. Absent: rash Course Vital Signs 12/06/24 12/06/24 17:22 18:47 Temperature 98.6 F 98.7 F Pulse Rate 110 H 54 L Respiratory 18 16 Rate Blood Pressure 91/56 111/75 O2 Sat by Pulse 98 98 Oximetry - Reevaluation(s) Reevaluation #1: 12/06/24 19:40 Medical records reviewed Reevaluation #2: 12/06/24 19:40 Patient symptoms are maybe mildly improved definitely not worse here in the ER no tongue involvement Reevaluation #3: 12/06/24 19:40 Patient informed of results questions answered Reevaluation #4: Was pt. sent in by a medical professional or institution ([facility], [facility], urgent care, hospital, or [facility]...) When possible be specific @ -no Did you speak to anyone other than the patient for history (EMS, parent, family, police, friend...)? What history was obtained from this source @ -no Did you review nursing and triage notes (agree or disagree)? Why? @ -agree Are old charts reviewed (outside hosp., previous admission, EMS record, old EKG, old radiological studies, urgent care reports/EKG's, [facility] records)? Report findings @ -yes Differential Diagnosis (chest pain, altered mental status, abdominal pain women, abdominal pain men, vaginal bleeding, weakness, fever, dyspnea, syncope, headache, dizziness, GI bleed, back pain, seizure, CVA, palpatations, mental health, musculoskeletal)? @ -prior EKG interpreted by me (3pts min.). @ -no X-rays interpreted by me (1pt min.). @ -no CT interpreted by me (1pt min.). @ -no U/S interpreted by me (1pt. min.). @ -no What testing was considered but not performed or refused? (CT, X-rays, U/S, labs)? Why? @ -none What meds were considered but not given or refused? Why? @ -none Did you discuss the management of the patient with other professionals (professionals i.e. [facility], [facility], lab, RT, psych nurse, social worker delinquency prevention, court magistrate, teacher, motorized squad commanding officer, case filler)? Give summary @ -no Was smoking cessation discussed for >3mins.? @ -no Was critical care preformed (if so, how long)? @ -no Were there social determinants of health that impacted care today? How? (Homelessness, low income, unemployed, alcoholism, drug addiction, transportation, low edu. Level, literacy, decrease access to med. care, [facility], rehab)? @ -none Was there de-escalation of care discussed even if they declined (Discuss DNR or withdrawal of care, Hospice)? DNR status @ -no What co-morbidities impacted this encounter? (DM, HTN, Smoking, COPD, CAD, Cancer, CVA, ARF, Chemo, Hep., AIDS, mental health diagnosis, sleep apnea, morbid obesity)? @ -none Was patient admitted / discharged? Hospital course, mention meds given and route, prescriptions, significant lab abnormalities, going to OR and other pertinent info. @ - 49 male upper lip swelling, suspect angioedema from lisinopril. Patient given steroids for possible cause allergy, will stop lisinopril switch blood pressure medication and patient can be discharged home Discharge Undiagnosed new problem with uncertain prognosis? @ -no Drug Therapy requiring intensive monitoring for toxicity (Heparin, Nitro, Insulin, Cardizem)? @ -no Were any procedures done? @ -no Diagnosis/symptom? @ -Angioedema Acute, or Chronic, or Acute on Chronic? @ -Acute Uncomplicated (without systemic symptoms) or Complicated (systemic symptoms)? @ -Complicated Side effects of treatment? @ -no Exacerbation, Progression, or Severe Exacerbation? @ -exacerbation Poses a threat to life or bodily function? How? (Chest pain, [place], [place], pneumonia, PE, COPD, DKA, ARF, appy, cholecystitis, CVA, Diverticulitis, Homicidal, Suicidal, threat to staff... and all critical care pts) @ -yes angioedema Medical Decision Making - Medical Decision Making 49 male upper lip swelling, suspect angioedema from lisinopril. Patient given steroids for possible cause allergy, will stop lisinopril switch blood pressure medication and patient can be discharged home - Lab Data Result diagrams: 12/06/24 17:46 12/06/24 17:46 Lab Results 12/06/24 12/06/24 Range/Units 17:46 17:46 WBC 5.19 (4.50-10.00) 10*3/uL RBC 3.88 L (4.40-5.60) 10*6/uL Hgb 12.2 L (13.0-17.0) g/dL Hct 33.6 L (39.6-50.0) % MCV 86.6 (80.0-97.0) fL MCH 31.4 (27.0-32.0) pg MCHC 36.3 (32.0-37.0) g/dL Plt Count 180 (140-440) 10*3/uL MPV 8.3 L (9.5-12.2) fL Immature Gran % (Auto) 0.2 % Neutrophils % 49.5 % Lymphocytes % 33.1 % Monocytes % 12.9 % Eosinophils % 3.7 % Basophils % 0.6 % Immature Gran # 0.01 (0.00-0.04) 10*3/uL Neutrophils # 2.57 (1.80-7.70) 10*3/uL Lymphocytes # 1.72 (0.90-5.00) 10*3/uL Monocytes # 0.67 (0.20-1.00) 10*3/uL Eosinophils # 0.19 (0.04-0.35) 10*3/uL Basophils # 0.03 (0.00-0.10) 10*3/uL Sodium 134 L (137-145) mmol/L Potassium 3.7 (3.5-5.1) mmol/L Chloride 99 (98-107) mmol/L Carbon Dioxide 20 L (22-30) mmol/L Anion Gap 15 mmol/L BUN 14 (9-20) mg/dL Creatinine 1.25 (0.66-1.25) mg/dL Est GFR (CKD-EPI)AfAm 78 (>60 ml/min/1.73 sqM) Est GFR (CKD-EPI)NonAf 68 (>60 ml/min/1.73 sqM) Glucose 168 H (74-99) mg/dL Calcium 9.8 (8.4-10.2) mg/dL Phosphorus 5.4 H (2.5-4.5) mg/dL Magnesium 1.7 (1.6-2.3) mg/dL Total Bilirubin 0.4 (0.2-1.3) mg/dL AST 56 (17-59) U/L ALT 54 H (4-49) U/L Alkaline Phosphatase 62 (38-126) U/L Total Protein 6.9 (6.3-8.2) g/dL Albumin 4.0 (3.5-5.0) g/dL Serum Alcohol 131 mg/dL Disposition Clinical Impression: Allergic reaction, Angioedema Disposition: HOME SELF-CARE Condition: Fair Instructions (If sedation given, give patient instructions): Angioedema (ED) Prescriptions: Valsartan [Diovan] 80 mg PO DAILY #30 tab predniSONE 50 mg PO DAILY #5 tab Is patient prescribed a controlled substance at d/c from ED?: No Referrals: Matti Yates MD [STAFF PHYSICIAN] - 1-2 days Time of Disposition: 19:30
[2024-12-06] MEDS: SODIUM CHLORIDE 0.9% 1,000 ML IV STA (17:51)
[2024-12-06 18:01] LABS: Basophils # (A) 0.03 10*3/uL (0.00-0.10); Basophils % (A) 0.6 %; Eosinophils # (A) 0.19 10*3/uL (0.04-0.35); Eosinophils % (A) 3.7 %; HCT 33.6 % (39.6-50.0); HGB 12.2 g/dL (13.0-17.0); Lymphocytes # (A) 1.72 10*3/uL (0.90-5.00); Lymphocytes % (A) 33.1 %; MCH 31.4 pg (27.0-32.0); MCHC 36.3 g/dL (32.0-37.0); MCV 86.6 fL (80.0-97.0); Monocytes # (A) 0.67 10*3/uL (0.20-1.00); Monocytes % (A) 12.9 %; Neutrophils # (A) 2.57 10*3/uL (1.80-7.70); Neutrophils % (A) 49.5 %; Platelet Count 180 10*3/uL (140-440); RBC 3.88 10*6/uL (4.40-5.60); RDW 12.3 % (11.5-14.5); WBC 5.19 10*3/uL (4.50-10.00)
[2024-12-06] MEDS: DEXAMETHASONE SOD PHOSPHATE 10 MG/ML 1 ML VIAL IVP STA (18:10)
[2024-12-06] MEDS: hydrOXYzine HCL 25 MG TAB PO STA (18:10)
[2024-12-06] MEDS: FAMOTIDINE 20 MG/2 ML VIAL IV STA (18:10)
[2024-12-06] MEDS: TRANEXAMIC 1,000 MG/100ML-NACL 1,000 MG in SALINE 1 100ML.BAG IV STA (18:11)
[2024-12-06 18:15] LABS: ALT 54 U/L (4-49); AST 56 U/L (17-59); African American GFR (CKD) 78 (>60 ml/min/1.73 sqM); Albumin 4.0 g/dL (3.5-5.0); Alkaline Phosphatase 62 U/L (38-126); Anion Gap 15 mmol/L; Blood Urea Nitrogen 14 mg/dL (9-20); Calcium 9.8 mg/dL (8.4-10.2); Carbon Dioxide 20 mmol/L (22-30); Chloride 99 mmol/L (98-107); Glucose 168 mg/dL (74-99); Magnesium 1.7 mg/dL (1.6-2.3); Non-African American GFR(CKD) 68 (>60 ml/min/1.73 sqM); Potassium 3.7 mmol/L (3.5-5.1); Sodium 134 mmol/L (137-145); Total Protein 6.9 g/dL (6.3-8.2)
[2024-12-06 18:57] VITALS: BP 111/75; PULSE 54; RESP 16; TEMP 98.7
== END 2024-12-06 19:39 | disposition home or self-care (01) ==
LOC: EC 17:20
DX: T78.3XXA Angioneurotic edema, initial encounter (principal); F17.200 Nicotine dependence, unspecified, uncomplicated; Z91.011 Allergy to milk products
CPT/HCPCS: 36415; 80053; 83735; 84100; 85025; 80320; 99283; 96374; 96375 ×2; 96361; J1100; J1308